=== PATIENT | female | born 1970 | race Caucasian/White ===

== ENCOUNTER → 2017-10-14 | Outpatient (CLI) | payer OTHER ==
--- NOTE | 2017-10-14 12:26 | DIAGNOSTIC IMAGING REPORT ---
PET/CT SKULL-THIGH CLINICAL HISTORY: LYMPHOMA COMPARISON STUDY: No previous studies for comparison. FINDINGS: The patient was injected with 11.6 mCi of F 18 labeled FDG. Findings standard induction phase, PET/CT scanning is performed from the skull base the upper thigh region. Activity within the neck is felt to be physiologic. Within the chest, there is left axillary lymphadenopathy. A 21 mm left axillary lymph node has SUV maximum of 1.7. This is equivalent to background blood pool. There is no pathologic mediastinal or hilar lymphadenopathy. There are no FDG avid hepatic or splenic lesions. The spleen is enlarged measuring 15 cm. There is an 8 cm central mesenteric mass with SUV maximum of 2.8. There are multiple enlarged adjacent mesenteric lymph nodes. There is para-aortic adenopathy including a 3 cm left para-aortic lesion. This has an SUV maximum of 2.4. There is physiologic urinary tract and bowel activity. There is a 3 cm right ovarian cyst/follicle. There are no FDG avid skeletal lesions. IMPRESSION: 1. Left axillary lymphadenopathy which is not significantly FDG avid demonstrating SUV maximum of 1.7. This is equivalent to background blood pool. 2. As a target lymphadenopathy including an 8 cm central mesenteric mass with SUV maximum of 2.8. 3. Pathologic lymphadenopathy including a 3 cm left para-aortic lesion. This has an SUV maximum of 2.4. 4. The spleen is mildly enlarged measuring 15 cm. No focal splenic lesions are visualized Electronically signed by: Irvin Mott M.D. 10/14/2017 12:25 PM Dictated Date/Time: 10/14/2017 12:16 PM
== END | disposition home or self-care (01) ==
LOC: C.PET 08:33
PROVIDERS: ATTEND Nurse Practitioner Family
DX: C82.32 Follicular lymphoma grade IIIa, intrathoracic lymph nodes (principal)

== ENCOUNTER → 2017-12-30 | Outpatient (CLI) | payer OTHER ==
[~2017-12-30] MED LIST: MISCCAP80 PO; NVLGI7030 SC; SENNTAB23 PO
== END | disposition home or self-care (01) ==
LOC: C.LABSPEC 16:37
PROVIDERS: ATTEND Internal Medicine Infectious Disease
DX: B37.0 Candidal stomatitis (principal)

== ENCOUNTER 2018-01-08 12:04 | Emergency (ER) | payer OTHER ==
[~2018-01-08] VITALS: Ht 170.2 cm; Wt 68.0 kg
[2018-01-08 12:06] VITALS: TEMP 36.5; Ht 170.2 cm; Wt 68.0 kg
[2018-01-08 12:25] VITALS: O2SAT 95
[2018-01-08] MEDS ORDERED: SODIUM CHLORIDE 0.9% 1000ML 1,000 ML IV STA ×2 (12:32→14:28)
--- NOTE | 2018-01-08 12:47 | EMERGENCY ROOM VISIT NOTE ---
History Report prepared by Ebony: Howard Diaz Under the Supervision of: Dr. Teodoro Serra M.D. First contact with patient: 12:25 Chief Complaint: SHORTNESS OF BREATH Stated Complaint: DEHYDRATED, STOMACHE PAIN, SOB, CA PT Nursing Triage Summary: pt c/o SOB and came over from [facility] and still has IV in place from facility History of Present Illness The patient is a 47 year old female with lymphoma and a history of diabetes who presents to the Emergency Room with complaints of persistent weakness that started a few weeks ago. The patient states that she came here from infectious disease. She was being seen there for thrush in her mouth. The patient notes that she wanted to come here because she has been tired and weak. She says that she has trouble drinking water due to burning in her mouth, and she is not eating well. She notes a decreased frequency of urination due to not drinking well. The patient adds that she has been intermittently short of breath for a few weeks, in addition, she has had some nasal drainage. The patient notes that the shortness of breath is not correlated with activity. She says that she has been getting "hot and cold". She denies a notable cough. The patient notes that she has finished chemotherapy for her lymphoma in September, and this thrush is probably related to the chemotherapy. Per the nursing staff, the patient had an oxygen saturation of 91% on room air, so she was put on 2 liters here. The patient notes that she is taking a medication for the thrush, but it is still there. She notes no history of a blood clot in her leg or lung, or any chronic lung diseases such as COPD or lymphoma. She adds that she has had a rash underneath her breasts for a while. Source of History: patient, nursing staff Onset: A few weeks ago Position: other (global) Quality: other (weakness) Timing: other (persistent) Associated Symptoms: + chills (and gets hot too), + SOB, + urinary symptoms (decreased frequency), + fatigue, + rash, No cough Note: Associated symptoms: Nasal drainage. Not eating or drinking well due to burning in mouth. Review of Systems See HPI for pertinent positives & negatives. A total of 10 systems reviewed and were otherwise negative. Past Medical & Surgical Medical Problems: (1) Diabetes (2) Lymphoma (3) Stroke Family History No pertinent family history Social History Drug Use: none Marital Status: single Occupation Status: disabled Current/Historical Medications Scheduled Albuterol Hfa (Ventolin Hfa), 2 PUFFS INH Q6H Cefdinir (Omnicef), 300 MG PO Q12H Insulin Aspart 70/30 (Novolog Mix 70/30), Unknown Dose SC AC [Home Iv Med], 1 DOSE IV DAILY Scheduled PRN Sennosides-Docusate Sodium (Stool Softener), 1 CAP PO DAILY PRN for Constipation Allergies Coded Allergies: Cyclobenzaprine (Verified Allergy, Unknown, Unknown, 01/08/18) per [employer] Lidocaine (Verified Allergy, Unknown, Unknown, 01/08/18) per [facility] Morphine (Verified Allergy, Unknown, Unknown, 01/08/18) per [facility] Nystatin (Verified Allergy, Unknown, Bio-Statin - unknown, 01/08/18) per [facility] Physical Exam Vital Signs Date Time Temp Pulse Resp B/P (MAP) Pulse Ox O2 Delivery O2 Flow Rate FiO2 01/08/18 16:20 104 18 152/95 92 01/08/18 16:02 97 22 94 Room Air 01/08/18 14:06 90 18 158/92 95 Nasal Cannula 2.0 01/08/18 12:25 91 01/08/18 12:25 95 Nasal Cannula 2.0 01/08/18 12:20 91 Room Air 01/08/18 12:06 36.5 104 20 92 Room Air Physical Exam GENERAL: Patient is in no acute distress. HEENT: Significant irritation/ulcers to tongue and throat. Mucous membranes moist, no nasal congestion, no scleral icterus. NECK: No stridor, no adenopathy, no meningismus, trachea is midline. LUNGS: Decreased breath sounds with some crackles in both bases. No wheezing. Breath sounds are equal. HEART: Without murmurs gallops or rubs, regular rate and rhythm. ABDOMEN: Soft, nontender, bowel sounds positive, no hernias, no peritonitis. EXTREMITIES: No cyanosis or edema, full range of motion of all the joints without pain or difficulty, no signs for acute trauma. NEUROLOGIC: Oriented x 3, no acute motor or sensory deficits, no focal weakness. SKIN: Erythematous slightly raised patchy rash underneath breasts. No cellulitis. No jaundice, no diaphoresis. Medical Decision & Procedures ER Provider Diagnostic Interpretation: Radiology results as stated below per my review and radiologist interpretation: CHEST ONE VIEW PORTABLE CLINICAL HISTORY: EVALUATE ALTERED MENTAL STATUS/WEAKNESS COMPARISON STUDY: No previous studies for comparison. FINDINGS: The bones soft tissues and hemidiaphragms are normal. The cardiomediastinal silhouette is normal. The lungs are clear. The pulmonary vasculature is normal. There is a central catheter in superior vena cava IMPRESSION: Negative chest. The above report was generated using voice recognition software. It may contain grammatical, syntax or spelling errors. Electronically signed by: Sam Pierre M.D. 01/08/2018 1:18 PM Dictated Date/Time: 01/08/2018 1:18 PM (CHEST FOR PE) ANGIO WITH CT DOSE: 279.65 mGy.cm HISTORY: Chest pain dyspnea TECHNIQUE: Multiaxial CT images of the chest were performed following the intravenous administration of contrast to evaluate the pulmonary arteries. Maximal intensity projection images were also obtained. A dose lowering technique was utilized adhering to the principles of ALARA. COMPARISON STUDY: PET scan 01/08/2018 FINDINGS: Pulmonary vasculature enhances appropriately. There are no significant filling defects. The thoracic aorta is negative for dissection or aneurysm. No significant hilar or mediastinal adenopathy. Slight interstitial prominence throughout the mid and upper lung regions bilaterally which may indicate a mild interstitial pneumonitis. No true focal infiltrates. Upper abdominal adenopathy and thickening of the mesentery are noted which of been described previously. IMPRESSION: 1. No evidence for pulmonary embolus. 2. Subtle interstitial changes in the mid and upper lung regions bilaterally may indicate a mild pneumonitis. The above report was generated using voice recognition software. It may contain grammatical, syntax or spelling errors. Electronically signed by: Sam Pierre M.D. 01/08/2018 2:38 PM Dictated Date/Time: 01/08/2018 2:31 PM Laboratory Results 01/08/18 12:40 Red Blood Count 5.11, Mean Corpuscular Volume 78.7, Mean Corpuscular Hemoglobin 28.0, Mean Corpuscular Hemoglobin Concent 35.6, Mean Platelet Volume 8.5, Neutrophils (%) (Auto) 64.4, Lymphocytes (%) (Auto) 18.8, Monocytes (%) (Auto) 14.1, Eosinophils (%) (Auto) 2.3, Basophils (%) (Auto) 0.2, Neutrophils # (Auto ) 3.67, Lymphocytes # (Auto) 1.07, Monocytes # (Auto) 0.80, Eosinophils # (Auto ) 0.13, Basophils # (Auto) 0.01 01/08/18 12:40 Test 01/08/18 12:40 01/08/18 14:02 White Blood Count 5.69 K/uL (4.8-10.8) Red Blood Count 5.11 M/uL (4.2-5.4) Hemoglobin 14.3 g/dL (12.0-16.0) Hematocrit 40.2 % (37-47) Mean Corpuscular Volume 78.7 fL (80-100) Mean Corpuscular Hemoglobin 28.0 pg (25-34) Mean Corpuscular Hemoglobin Concent 35.6 g/dl (32-36) Platelet Count 131 K/uL (130-400) Mean Platelet Volume 8.5 fL (7.4-10.4) Neutrophils (%) (Auto) 64.4 % Lymphocytes (%) (Auto) 18.8 % Monocytes (%) (Auto) 14.1 % Eosinophils (%) (Auto) 2.3 % Basophils (%) (Auto) 0.2 % Neutrophils # (Auto) 3.67 K/uL (1.4-6.5) Lymphocytes # (Auto) 1.07 K/uL (1.2-3.4) Monocytes # (Auto) 0.80 K/uL (0.11-0.59) Eosinophils # (Auto) 0.13 K/uL (0-0.5) Basophils # (Auto) 0.01 K/uL (0-0.2) RDW Standard Deviation 42.7 fL (36.4-46.3) RDW Coefficient of Variation 15.0 % (11.5-14.5) Immature Granulocyte % (Auto) 0.2 % Immature Granulocyte # (Auto) 0.01 K/uL (0.00-0.02) Anion Gap 6.0 mmol/L (3-11) Est Creatinine Clear Calc Drug Dose 125.6 ml/min Estimated GFR () 131.3 Estimated GFR (Non- 113.3 BUN/Creatinine Ratio 14.7 (10-20) Calcium Level 10.8 mg/dl (8.5-10.1) Magnesium Level 1.8 mg/dl (1.8-2.4) Total Bilirubin 0.7 mg/dl (0.2-1) Aspartate Amino Transf (AST/SGOT) 16 U/L (15-37) Alanine Aminotransferase (ALT/SGPT) 15 U/L (12-78) Alkaline Phosphatase 78 U/L (45-117) Troponin I 0.020 ng/ml (0-0.045) Total Protein 7.3 gm/dl (6.4-8.2) Albumin 3.6 gm/dl (3.4-5.0) Globulin 3.7 gm/dl (2.5-4.0) Albumin/Globulin Ratio 1.0 (0.9-2) Thyroid Stimulating Hormone (TSH) 0.777 uIu/ml (0.300-4.500) Urine Color YELLOW Urine Appearance CLEAR (CLEAR) Urine pH 5.0 (4.5-7.5) Urine Specific [place] 1.020 (1.000-1.030) Urine Protein NEG (NEG) Urine Glucose (UA) TRACE (NEG) Urine Ketones 3+ (NEG) Urine Occult Blood NEG (NEG) Urine Nitrite NEG (NEG) Urine Bilirubin NEG (NEG) Urine Urobilinogen NEG (NEG) Urine Leukocyte Esterase MODERATE (NEG) Urine WBC (Auto) >30 /hpf (0-5) Urine RBC (Auto) 0-4 /hpf (0-4) Urine Hyaline Casts (Auto) 5-10 /lpf (0-5) Urine Epithelial Cells (Auto) 10-20 /lpf (0-5) Urine Bacteria (Auto) NEG (NEG) Laboratory results reviewed by me. Medications Administered Medications (Trade) Dose Ordered Sig/Iram Route Start Time Stop Time Status Last Admin Dose Admin Sodium Chloride 1,000 ml @ 999 mls/hr Q1H1M STAT IV 01/08/18 12:32 01/08/18 13:32 DC 01/08/18 13:00 999 MLS/HR Sodium Chloride 1,000 ml @ 999 mls/hr Q1H1M STAT IV 01/08/18 14:28 01/08/18 15:28 DC 01/08/18 14:32 999 MLS/HR Ceftriaxone Sodium (Rocephin Inj) 1 gm NOW STAT IV 01/08/18 14:46 01/08/18 14:48 DC 01/08/18 15:05 1 GM Albuterol (Ventolin Hfa Inhaler) 2 puffs NOW ONCE INH 01/08/18 15:00 01/08/18 15:01 DC 01/08/18 15:06 2 PUFFS ECG Per My Interpretation Indication: weakness Rate (beats per minute): 91 Rhythm: normal sinus Findings: no acute ischemic change, no ectopy ED Course 1225: The patient was evaluated in room B7. A complete history and physical exam was performed. 1232: NSS 1000 ml @ 999 mls/hr IV. 1341: I reevaluated the patient and told her that we will scan her chest. 1428: NSS 1000 ml @ 999 mls/hr IV. 1446: Rocephin Inj 1 gm IV. 1452: I reevaluated and updated the patient. 1456: I discussed the patient with the nurses who took care of her today at [facility] - the patient is being treated for thrush, and is receiving antifungal injections IV through her port. 1500: Ventolin Hfa Inhaler 2 puffs INH. 1532: Reevaluated the patient. Discussed results and discharge instructions: she verbalized understanding and agreement. The patient is ready for discharge pending oxygen saturation checkup. 1600: I reevaluated the patient and while walking around according to the nurses , she had an oxygen saturation of 93%. I offered the patient hospitalization but she wants to go home and will come if she worsens. Medical Decision Differential diagnosis includes but is not limited to dehydration, electrolyte imbalance, anemia, pneumonia, bronchitis, CHF, PE, cardiac ischemia. There is no leukocytosis or concerning anemia. No significant electrolyte abnormality, kidney failure or hepatitis. The patient appears to be in a euthyroid state. EKG shows a normal sinus rhythm, no acute ischemia. Cardiac enzyme testing 1 is not consistent with acute cardiac injury. Chest x-ray does not show pneumonia or CHF. Urinalysis does suggest infection, urine culture is pending. Chest CT does not show PE, a possible pneumonitis in the upper lobes was noted. The patient received IV saline, albuterol via MDI, she was given IV ceftriaxone. The patient feels better although she is still short of breath with walking around. Her O2 saturation with walking was around 92% as per the nursing staff. I had a long discussion with the patient. She does want to be discharged home. She will return here if worsening. Patient will be treated with Omnicef for the possible UTI, this should also help with coverage for the pneumonitis noted on CT scan. The patient should rest and stay well-hydrated. If things are worsening, she can return for reassessment. She will continue with the IV dosing of antifungal for her thrush. Medication Reconcilliation Current Medication List: was personally reviewed by me Blood Pressure Screening Patient's blood pressure: Elevated blood pressure Blood pressure disposition: Referred to PCP Consults Time Called: [id number] Consulting Physician: Nurses from infectious disease Returned Call: [phone] I discussed the patient with the nurses who took care of her today at [facility] - the patient is being treated for thrush, and is receiving antifungal injections IV through her port. Impression Primary Impression: Dehydration Additional Impressions: UTI (urinary tract infection) Pneumonitis Scribe Attestation The scribe's documentation has been prepared under my direction and personally reviewed by me in its entirety. I confirm that the note above accurately reflects all work, treatment, procedures, and medical decision making performed by me. Departure Information Dispostion Home / Self-Care Prescriptions Albuterol Hfa (VENTOLIN HFA) 200 Puffs/16953 Mcg Aers 2 PUFFS INH Q6H, #1 INHALER Prov: Teodoro Serra M.D. 01/08/18 Cefdinir (OMNICEF) 300 Mg Cap 300 MG PO Q12H for 7 Days, #14 CAP Prov: Teodoro Serra M.D. 01/08/18 Referrals Gregory Gallegos M.D. (PCP) Patient Instructions My [facility] Additional Instructions omnicef 2x per day for 1 week albuterol 2 puffs every 6 hours to help with your breathing continue all other meds as before return for fever or worsening symptoms No blood clot noted by CT scan today Problem Qualifiers
[2018-01-08 12:50] LABS: BASO % 0.2 %; BASO ABS # 0.01 K/uL (0-0.2); EOS % 2.3 %; EOS ABS # 0.13 K/uL (0-0.5); HEMATOCRIT 40.2 % (37-47); HEMOGLOBIN 14.3 g/dL (12.0-16.0); IG# 0.01 K/uL (0.00-0.02); LYMPH % 18.8 %; LYMPH ABS # 1.07 K/uL (1.2-3.4); MEAN CELL VOLUME 78.7 fL (80-100); MEAN CORPUSCULAR HGB CONC 35.6 g/dl (32-36); MEAN PLATELET VOLUME 8.5 fL (7.4-10.4); MONO % 14.1 %; NEUT % 64.4 %; NEUT ABS # 3.67 K/uL (1.4-6.5); PLATELET COUNT 131 K/uL (130-400); RED CELL DISTRIBUTION WIDTH SD 42.7 fL (36.4-46.3); WHITE BLOOD COUNT 5.69 K/uL (4.8-10.8)
[2018-01-08 13:13] LABS: ALBUMIN 3.6 gm/dl (3.4-5.0); CALCIUM 10.8 mg/dl (8.5-10.1); CREATININE 0.55 mg/dl (0.60-1.20); POTASSIUM 3.9 mmol/L (3.5-5.1)
--- NOTE | 2018-01-08 13:20 | DIAGNOSTIC IMAGING REPORT ---
CHEST ONE VIEW PORTABLE CLINICAL HISTORY: EVALUATE ALTERED MENTAL STATUS/WEAKNESS COMPARISON STUDY: No previous studies for comparison. FINDINGS: The bones soft tissues and hemidiaphragms are normal. The cardiomediastinal silhouette is normal. The lungs are clear. The pulmonary vasculature is normal. There is a central catheter in superior vena cava IMPRESSION: Negative chest. The above report was generated using voice recognition software. It may contain grammatical, syntax or spelling errors. Electronically signed by: Sam Pierre M.D. 01/08/2018 1:18 PM Dictated Date/Time: 01/08/2018 1:18 PM
[2018-01-08 13:23] LABS: TOTAL PROTEIN 7.3 gm/dl (6.4-8.2)
[2018-01-08] MEDS ORDERED: [UNRECOGNIZED DRUG - REMARK] IV (13:47)
[2018-01-08] MEDS ORDERED: OPTIRAY 320 IV PRN (14:00)
--- NOTE | 2018-01-08 14:40 | DIAGNOSTIC IMAGING REPORT ---
(CHEST FOR PE) ANGIO WITH CT DOSE: 279.65 mGy.cm HISTORY: Chest pain dyspnea TECHNIQUE: Multiaxial CT images of the chest were performed following the intravenous administration of contrast to evaluate the pulmonary arteries. Maximal intensity projection images were also obtained. A dose lowering technique was utilized adhering to the principles of ALARA. COMPARISON STUDY: PET scan 01/08/2018 FINDINGS: Pulmonary vasculature enhances appropriately. There are no significant filling defects. The thoracic aorta is negative for dissection or aneurysm. No significant hilar or mediastinal adenopathy. Slight interstitial prominence throughout the mid and upper lung regions bilaterally which may indicate a mild interstitial pneumonitis. No true focal infiltrates. Upper abdominal adenopathy and thickening of the mesentery are noted which of been described previously. IMPRESSION: 1. No evidence for pulmonary embolus. 2. Subtle interstitial changes in the mid and upper lung regions bilaterally may indicate a mild pneumonitis. The above report was generated using voice recognition software. It may contain grammatical, syntax or spelling errors. Electronically signed by: Sam Pierre M.D. 01/08/2018 2:38 PM Dictated Date/Time: 01/08/2018 2:31 PM
[2018-01-08] MEDS ORDERED: CEFTRIAXONE SOD INJ 1 GM ADDVIAL IV STA (14:46)
[2018-01-08] MEDS ORDERED: ALBUTEROL HFA 8 GM INHALER INH ONE (15:00)
[2018-01-08] MEDS ORDERED: VNTHFA/IN INH (15:02)
[2018-01-08] MEDS ORDERED: CEFD300C2 PO (15:02)
[2018-01-08 16:20] VITALS: BP 152/95; PULSE 104; O2SAT 92
== END 2018-01-08 16:25 | disposition home or self-care (01) ==
LOC: C.EDB 12:05
DX: E86.0 Dehydration (principal); N39.0 Urinary tract infection, site not specified; J18.9 Pneumonia, unspecified organism; C85.90 Non-Hodgkin lymphoma, unspecified, unspecified site; E11.9 Type 2 diabetes mellitus without complications; Z86.73 Personal history of transient ischemic attack (TIA), and cerebral infarction without residual deficits; Z79.4 Long term (current) use of insulin; Z79.899 Other long term (current) drug therapy; Z88.5 Allergy status to narcotic agent; Z88.8 Allergy status to other drugs, medicaments and biological substances

== ENCOUNTER → 2018-06-17 | Outpatient (CLI) | payer OTHER ==
[~2018-06-17] MED LIST changes: +GUAI1SOL5 PO; +IPRA-64 INH; +LORA10CA2 PO; -MISCCAP80 PO; +PRED10TA PO; +VNTHFA/IN INH
[2018-06-17 09:03] LABS: BASO % 0.3 %; BASO ABS # 0.02 K/uL (0-0.2); EOS % 6.3 %; EOS ABS # 0.38 K/uL (0-0.5); HEMATOCRIT 40.7 % (37-47); HEMOGLOBIN 13.9 g/dL (12.0-16.0); LYMPH % 28.5 %; LYMPH ABS # 1.73 K/uL (1.2-3.4); MEAN CELL VOLUME 82.7 fL (80-100); MEAN CORPUSCULAR HEMOGLOBIN 28.3 pg (25-34); MEAN CORPUSCULAR HGB CONC 34.2 g/dl (32-36); MEAN PLATELET VOLUME 9.1 fL (7.4-10.4); MONO % 11.5 %; NEUT % 53.4 %; NEUT ABS # 3.24 K/uL (1.4-6.5); PLATELET COUNT 123 K/uL (130-400); RED CELL DISTRIBUTION WIDTH CV 13.8 % (11.5-14.5); RED CELL DISTRIBUTION WIDTH SD 41.6 fL (36.4-46.3); WHITE BLOOD COUNT 6.07 K/uL (4.8-10.8)
[2018-06-17 09:45] LABS: ALBUMIN 3.4 gm/dl (3.4-5.0); ALKALINE PHOSPHATASE 84 U/L (45-117); ALT/SGPT 16 U/L (12-78); AST/SGOT 17 U/L (15-37); BLOOD UREA NITROGEN 10 mg/dl (7-18); CALCIUM 10.5 mg/dl (8.5-10.1); CARBON DIOXIDE 31 mmol/L (21-32); CREATININE 0.54 mg/dl (0.60-1.20); GLUCOSE 236 mg/dl (70-99); SODIUM 139 mmol/L (136-145)
== END | disposition home or self-care (01) ==
LOC: C.LABSPEC 08:54
PROVIDERS: ATTEND Internal Medicine Hematology & Oncology
DX: C82.32 Follicular lymphoma grade IIIa, intrathoracic lymph nodes (principal)

== ENCOUNTER 2019-02-08 16:14 | Inpatient (IN) ==
[2019-02-08] MEDS ORDERED: ALBUT/IPRATROP 3MG/0.5MG NEB 3 ML VIAL NEB STA (16:56)
[2019-02-08] MEDS ORDERED: SODIUM CHLORIDE 0.9% 1000ML 1,000 ML IV SCH ×2 (17:00→19:00)
--- NOTE | 2019-02-08 17:01 | Emergency Department Note ---
ED Visit Note I took a history and examined the patient. I coordinated the management of the patient with Dr. Guzman . : Chronic respiratory failure Qualifiers: Respiratory failure complication: hypoxia and hypercapnia Qualified Code(s): J96.11 - Chronic respiratory failure with hypoxia
[2019-02-08 17:39] LABS: Basophils # (auto) 0.02 K/uL (0-0.2); Basophils % (auto) 0.3 %; Eosinophils % (auto) 4.1 %; Hemoglobin 15.2 g/dL (12.0-16.0); Immature Granulocytes # (auto) 0.01 K/uL (0.00-0.02); Immature Granulocytes % (auto) 0.1 %; Lymphocytes % (auto) 26.2 %; Mean Corpuscular Hgb Conc 34.5 g/dL (32-36); Mean Corpuscular Volume 83.2 fL (80-100); Mean Platelet Volume 9.7 fL (7.4-10.4); Monocytes # (auto) 0.79 K/uL (0.11-0.59); Monocytes % (auto) 10.9 %; Neutrophils # (auto) 4.24 K/uL (1.4-6.5); Neutrophils % (auto) 58.4 %; Platelet Count 124 K/uL (130-400); RDW Coefficient of Variation 13.7 % (11.5-14.5); RDW Standard Deviation 41.1 fL (36.4-46.3); Red Blood Count 5.29 M/uL (4.2-5.4); White Blood Count 7.26 K/uL (4.8-10.8)
[2019-02-08 17:59] LABS: Alanine Aminotransferase 16 U/L (12-78); Albumin Level 3.6 gm/dl (3.4-5.0); Aspartate Aminotransferase 14 U/L (15-37); BUN Creatinine Ratio 20.5 (10-20); Blood Urea Nitrogen 10 mg/dl (7-18); Calcium 11.3 mg/dl (8.5-10.1); Carbon Dioxide 33 mmol/L (21-32); Chloride 103 mmol/L (98-107); Creatinine Clr Calc Pharmacy 128.5 ml/min; Est GFR (African American) 136.3; Est GFR (Non-African American) 117.6; Glucose 149 mg/dl (70-99); Sodium 140 mmol/L (136-145)
[2019-02-08 18:03] LABS: Albumin Globulin Ratio 0.9 (0.9-2); Alkaline Phosphatase 94 U/L (45-117); Bilirubin,Total 0.6 mg/dl (0.2-1); Globulin 3.9 gm/dl (2.5-4.0); Total Protein 7.5 gm/dl (6.4-8.2); Troponin I < 0.015 ng/ml (0-0.045)
--- NOTE | 2019-02-08 18:18 | XRay Report ---
XR chest 1V portable CLINICAL HISTORY: 49 years-old Female presenting with SOB. TECHNIQUE: Portable upright AP view of the chest was obtained. COMPARISON: CT chest from 12/21/2018 and chest x-ray from 04/15/2018. FINDINGS: A right internal jugular Mediport terminates in the lower SVC and has been accessed. Cardiomediastina l silhouette normal. Lungs are mildly hyperinflated. No focal opacity. No large effusion or pneumotho rax. Degenerative changes of the thoracic spine. Upper abdomen normal. IMPRESSION: 1. No acute cardiopulmonary disease. Electronically signed by: Stef Lackey M.D. 02/08/2019 6:17 PM
[2019-02-08 18:24] LABS: HCO3 VBG 38 mmol/L; PCO2 VBG 75 mmHg (38-50); PO2 VBG 27 mmHg; pH VBG 7.32 (7.36-7.41)
[2019-02-08] MEDS ORDERED: methylPREDNISolone 125 MG/2 ML VIAL IV STA (18:24)
[2019-02-08 18:35] LABS: Oxygen Saturation VBG < 60.0 %
[2019-02-08 18:41] LABS: NT Pro B Type Natriuretic Pept 33 pg/ml (0-450)
[2019-02-08] MEDS ORDERED: OPTIRAY 320 125ml IV PRN (18:42)
--- NOTE | 2019-02-08 18:48 | CT Scan Report ---
CT angio chest PE protocol CLINICAL HISTORY: 49 years-old Female presenting with atypical chest pain, history of lymphoma. TECHNIQUE: Multidetector CT angiography of the chest was performed after administration of intravenou s contrast. 3-D volumetric and/or maximum intensity projection (MIP) images were subsequently reconst ructed for review. IV contrast: 119 mL of Optiray 320. One or more dose lowering techniques were used consistent with the principles of ALARA (as low as reasonably achievable), including automatic expos ure control, mA or kV adjustment to individual patient size, and/or use of iterative reconstruction. COMPARISON: 12/21/2018. CT DOSE (mGy.cm): The estimated cumulative dose is 252.90 mGy.cm. FINDINGS: Manager Eligibility topogram: Right internal jugular Mediport terminates in SVC. Pulmonary vasculature: The study is suboptimal for the assessment of the pulmonary vascular tree secondary to respiratory mo tion artifact. Allowing for limited image quality, no central filling defect to suggest pulmonary emb olus. Main pulmonary artery is not enlarged. No flattening of the interventricular septum. No intraca rdiac filling defect. Reflux of contrast into the IVC and hepatic veins. This likely indicates elevat ed right heart pressure. Remaining chest: Soft tissues: Normal thyroid and thoracic inlet. Previously noted left axillary lymphadenopathy with an index node measuring 13 mm in short axis, stable to slightly decreased in size from prior. Normal aorta. Normal heart size. Coronary artery calcification. No pericardial or pleural effusion. Limited evaluation of the upper abdomen due to the phase of contrast. Lungs and airways: No pneumothorax. Layering debris in the lower trachea. Pulmonary arteries are not significantly enlarged relative to adjacent bronchi. Trace centrilobular septal thickening. Prominent mosaic attenuation suggesting small airways disease. Respiratory motion artifact grades evaluation o f lung parenchyma. Allowing for this, no focal nodule or infiltrate. Few punctate fissural nodules in the left lower lobe, which have benign morphology. Musculoskeletal: Normal osseous structures. IMPRESSION: 1. Allowing for suboptimal image quality, no evidence of pulmonary embolus. 2. Mosaic attenuation suggest small airways disease. Evaluation of the lung parenchyma degraded by r espiratory motion artifact. 3. Stable to slight interval decrease in left axillary lymphadenopathy. 4. Reflux of contrast into the hepatic veins may suggest elevated right heart pressure. Electronically signed by: Stef Lackey M.D. 02/08/2019 6:47 PM
[2019-02-08] MEDS ORDERED: AZITHROMYCIN 250 MG TAB PO ONE (18:56)
[2019-02-08] MEDS ORDERED: ALBUT/IPRATROP 3MG/0.5MG NEB 3 ML VIAL NEB ONE (18:58)
--- NOTE | 2019-02-08 19:24 | Emergency Department Note ---
Entered by Nehal Grande acting as a scribe for History of Present Illness General Chief complaint: Shortness of Breath/Dyspnea Stated complaint: SOB, DIZZINESS Time Seen by Provider: 02/08/19 16:30 Source: patient Limitations: no limitations History of Present Illness Provider complaint: shortness of breath Onset (ago): day(s) 3 Location: chest Maximum Pain Intensity: 10 Exacerbated By: + movement Associated symptoms: + denies other symptoms (palpitations, runny nose, diarrhea), + cough (dry) and + other (+chest tightness, +dizziness); no fever/chills The patient is a 49 year old female who presents to the Emergency Room with complaints of shortness of breath that began 3 days prior to arrival. The patient states that exertion exacerbates her shortness of breath. The patient states that she has a dry cough, chest tightness, and dizziness. The patient denies any fevers, palpitations, diarrhea, or runny nose. The patient states that she usually wears 2L of oxygen at home. The patient states that she uses a nebulizer and 1 inhalers but states that she is unsure what they are for. The patient states that she has been treated with antibiotics over the past 2 months for pneumonia but states that she never received a chest CT. The patient states that she has a history of lymphoma and states that her last chemo treatment was in September. The patient states that she is not a current smoker but states that she smoked 1 pack a day for 15-20 years. Home Medications Home Medications Medication Instructions Recorded Confirmed Type Raw Honey 1 tsp PO DAILY 02/03/19 02/08/19 History Silver Shield 1 dose PO BID 02/03/19 02/08/19 History albuterol sulfate 0.63 mg INHALATION QID PRN 02/03/19 02/08/19 History albuterol sulfate 1 inh INHALATION QID PRN 02/03/19 02/08/19 History insulin aspart U-100 [Novolog 1 dose SUBCUT TID 02/03/19 02/08/19 History U-100 Insulin aspart] insulin glargine [Basaglar KwikPen 3 unit SUBCUT HS 02/03/19 02/08/19 History U-100 Insulin] ipratropium-albuterol [Combivent 1 puff INHALATION QID PRN 02/03/19 02/08/19 History Respimat] lactobacillus combination no.4 3 cap PO DAILY 02/03/19 02/08/19 History [Probiotic] Allergies Allergy/AdvReac Type Severity Reaction Status Date / Time cyclobenzaprine Allergy Intermediate HALLUCINATI Verified 02/08/19 17:00 ON lidocaine Allergy Intermediate ITCHING Verified 02/08/19 17:00 AND BURNING ON CONTACT nystatin Allergy Intermediate ITCHING Verified 02/08/19 17:00 AND BURNING cefaclor Allergy Mild SICK TO Verified 02/08/19 17:00 STOMACH morphine Allergy Mild VOMITTING Verified 02/08/19 17:00 Past Med/Surg History Medical History Anxiety HX OF Cardiac murmur Diabetes mellitus type 1 Dry eye Hyperlipidemia HX OF Hypertension Low oxygen saturation WEARS O2 AT 2L HS (CAUSED BY CHEMO [place]) Lymphoma On home oxygen therapy 2L AT HS Osteoarthritis Stroke AT AGE 43 "STRESS RELATED" Surgical History History of bilateral tubal ligation History of section X 3 History of laparoscopy History of tooth extraction History of vascular access device PORT INSERTION (FOR CHEMO) Ovarian cyst REMOVED Family History Mother Family history of diabetes mellitus Social History Preferred Language: Mohawk Communication Ability: Effective Regulatory Administrator Required: No Beliefs That Will Affect Care: None Current Living Situation: Alone Other Information That Helps Us Care for You: No Feels Safe at Home: Yes Safety Concerns: Feels Safe At This Time Smoking Status: Former smoker Hx Alcohol Use: No Hx Substance Use: No Review of Systems See HPI for pertinent positives & negatives. and A total of 10 systems reviewed and were otherwise negative See HPI for pertinent positives & negatives. A total of 10 systems reviewed and were otherwise negative. Physical Exam Vital Signs Vital Signs - 24 hr 02/08/19 16:25 02/08/19 16:55 02/08/19 17:00 Temperature 36.6 C Temperature Source Oral Sepsis Recent Fever Within 48 Hours No Sepsis New/Unexplained Change in Mental Status No Sepsis Action Taken by Nursing No Action Required Pulse Rate 101 H 92 H 98 H Pulse Rate [Finger] Pulse Rate from SpO2 Sensor 92 H 97 H Respiratory Rate 22 28 H 22 Respiratory Effort / Characteristics Spontaneous Labored Respiratory Depth Normal Respiratory Pattern Regular Blood Pressure 180/102 H Blood Pressure [Left Arm] Blood Pressure Mean 128 Blood Pressure Mean [Left Arm] Blood Pressure Position Sitting Blood Pressure Position [Left Arm] Pulse Oximetry 79 L 95 95 Pulse Oximetry [Right Index Finger] Oxygen Delivery Method Room Air Oxygen Delivery Method [Right Index Finger] Oxygen Flow Rate Oxygen Flow Rate [Right Index Finger] Fraction of Inspired Oxygen Fraction of Inspired Oxygen [Right Index Finger] 02/08/19 17:10 02/08/19 17:20 02/08/19 17:30 Temperature Temperature Source Sepsis Recent Fever Within 48 Hours Sepsis New/Unexplained Change in Mental Status Sepsis Action Taken by Nursing Pulse Rate 93 H 96 H 113 H Pulse Rate [Finger] Pulse Rate from SpO2 Sensor 92 H 95 H 112 H Respiratory Rate 23 20 18 Respiratory Effort / Characteristics Respiratory Depth Respiratory Pattern Blood Pressure Blood Pressure [Left Arm] Blood Pressure Mean Blood Pressure Mean [Left Arm] Blood Pressure Position Blood Pressure Position [Left Arm] Pulse Oximetry 96 97 91 Pulse Oximetry [Right Index Finger] Oxygen Delivery Method Oxygen Delivery Method [Right Index Finger] Oxygen Flow Rate Oxygen Flow Rate [Right Index Finger] Fraction of Inspired Oxygen Fraction of Inspired Oxygen [Right Index Finger] 02/08/19 17:40 02/08/19 17:42 02/08/19 17:44 Temperature Temperature Source Sepsis Recent Fever Within 48 Hours Sepsis New/Unexplained Change in Mental Status Sepsis Action Taken by Nursing Pulse Rate 106 H Pulse Rate [Finger] Pulse Rate from SpO2 Sensor 106 H 103 H Respiratory Rate 17 Respiratory Effort / Characteristics Respiratory Depth Respiratory Pattern Blood Pressure 224/125 H Blood Pressure [Left Arm] Blood Pressure Mean 158 Blood Pressure Mean [Left Arm] Blood Pressure Position Blood Pressure Position [Left Arm] Pulse Oximetry 91 91 96 Pulse Oximetry [Right Index Finger] Oxygen Delivery Method Nasal Cannula Oxygen Delivery Method [Right Index Finger] Oxygen Flow Rate 5 Oxygen Flow Rate [Right Index Finger] Fraction of Inspired Oxygen Fraction of Inspired Oxygen [Right Index Finger] 02/08/19 17:45 02/08/19 17:50 02/08/19 18:00 Temperature Temperature Source Sepsis Recent Fever Within 48 Hours Sepsis New/Unexplained Change in Mental Status Sepsis Action Taken by Nursing Pulse Rate 94 H 94 H Pulse Rate [Finger] Pulse Rate from SpO2 Sensor 102 H 95 H 93 H Respiratory Rate 5 L 28 H Respiratory Effort / Characteristics Respiratory Depth Respiratory Pattern Blood Pressure 216/114 H Blood Pressure [Left Arm] Blood Pressure Mean 148 Blood Pressure Mean [Left Arm] Blood Pressure Position Blood Pressure Position [Left Arm] Pulse Oximetry 97 98 98 Pulse Oximetry [Right Index Finger] Oxygen Delivery Method Oxygen Delivery Method [Right Index Finger] Oxygen Flow Rate Oxygen Flow Rate [Right Index Finger] Fraction of Inspired Oxygen Fraction of Inspired Oxygen [Right Index Finger] 02/08/19 18:10 02/08/19 18:49 02/08/19 18:50 Temperature Temperature Source Sepsis Recent Fever Within 48 Hours Sepsis New/Unexplained Change in Mental Status Sepsis Action Taken by Nursing Pulse Rate 101 H Pulse Rate [Finger] Pulse Rate from SpO2 Sensor 101 H 98 H 99 H Respiratory Rate 19 Respiratory Effort / Characteristics Respiratory Depth Respiratory Pattern Blood Pressure Blood Pressure [Left Arm] Blood Pressure Mean Blood Pressure Mean [Left Arm] Blood Pressure Position Blood Pressure Position [Left Arm] Pulse Oximetry 94 88 L 92 Pulse Oximetry [Right Index Finger] Oxygen Delivery Method Oxygen Delivery Method [Right Index Finger] Oxygen Flow Rate Oxygen Flow Rate [Right Index Finger] Fraction of Inspired Oxygen Fraction of Inspired Oxygen [Right Index Finger] 02/08/19 18:58 02/08/19 19:00 02/08/19 19:05 Temperature Temperature Source Sepsis Recent Fever Within 48 Hours Sepsis New/Unexplained Change in Mental Status Sepsis Action Taken by Nursing Pulse Rate 93 H 89 Pulse Rate [Finger] 89 Pulse Rate from SpO2 Sensor 90 Respiratory Rate 30 H 19 26 H Respiratory Effort / Characteristics Non-Labored Spontaneous Non-Labored Spontaneous Respiratory Depth Normal Respiratory Pattern Tachypnea Blood Pressure Blood Pressure [Left Arm] Blood Pressure Mean Blood Pressure Mean [Left Arm] Blood Pressure Position Blood Pressure Position [Left Arm] Pulse Oximetry 96 98 95 Pulse Oximetry [Right Index Finger] Oxygen Delivery Method BiPAP Oxygen Delivery Method [Right Index Finger] Oxygen Flow Rate Oxygen Flow Rate [Right Index Finger] Fraction of Inspired Oxygen 40 30 30 Fraction of Inspired Oxygen [Right Index Finger] 02/08/19 19:10 02/08/19 19:20 02/08/19 19:30 Temperature Temperature Source Sepsis Recent Fever Within 48 Hours Sepsis New/Unexplained Change in Mental Status Sepsis Action Taken by Nursing Pulse Rate 93 H 89 107 H Pulse Rate [Finger] Pulse Rate from SpO2 Sensor 92 H 90 107 H Respiratory Rate 33 H 28 H 46 H Respiratory Effort / Characteristics Respiratory Depth Respiratory Pattern Blood Pressure Blood Pressure [Left Arm] Blood Pressure Mean Blood Pressure Mean [Left Arm] Blood Pressure Position Blood Pressure Position [Left Arm] Pulse Oximetry 98 97 97 Pulse Oximetry [Right Index Finger] Oxygen Delivery Method Oxygen Delivery Method [Right Index Finger] Oxygen Flow Rate Oxygen Flow Rate [Right Index Finger] Fraction of Inspired Oxygen Fraction of Inspired Oxygen [Right Index Finger] 02/08/19 19:40 02/08/19 19:50 02/08/19 20:00 Temperature Temperature Source Sepsis Recent Fever Within 48 Hours Sepsis New/Unexplained Change in Mental Status Sepsis Action Taken by Nursing Pulse Rate 109 H 96 H 96 H Pulse Rate [Finger] Pulse Rate from SpO2 Sensor 108 H 97 H 97 H Respiratory Rate 20 31 H 29 H Respiratory Effort / Characteristics Respiratory Depth Respiratory Pattern Blood Pressure Blood Pressure [Left Arm] Blood Pressure Mean Blood Pressure Mean [Left Arm] Blood Pressure Position Blood Pressure Position [Left Arm] Pulse Oximetry 77 L 97 97 Pulse Oximetry [Right Index Finger] Oxygen Delivery Method Oxygen Delivery Method [Right Index Finger] Oxygen Flow Rate Oxygen Flow Rate [Right Index Finger] Fraction of Inspired Oxygen Fraction of Inspired Oxygen [Right Index Finger] 02/08/19 20:10 02/08/19 20:20 02/08/19 20:30 Temperature Temperature Source Sepsis Recent Fever Within 48 Hours Sepsis New/Unexplained Change in Mental Status Sepsis Action Taken by Nursing Pulse Rate 104 H 110 H 110 H Pulse Rate [Finger] Pulse Rate from SpO2 Sensor 104 H 109 H 111 H Respiratory Rate 43 H 22 25 H Respiratory Effort / Characteristics Respiratory Depth Respiratory Pattern Blood Pressure Blood Pressure [Left Arm] Blood Pressure Mean Blood Pressure Mean [Left Arm] Blood Pressure Position Blood Pressure Position [Left Arm] Pulse Oximetry 97 97 98 Pulse Oximetry [Right Index Finger] Oxygen Delivery Method Oxygen Delivery Method [Right Index Finger] Oxygen Flow Rate Oxygen Flow Rate [Right Index Finger] Fraction of Inspired Oxygen Fraction of Inspired Oxygen [Right Index Finger] 02/08/19 20:40 02/08/19 20:49 02/08/19 20:50 Temperature Temperature Source Sepsis Recent Fever Within 48 Hours Sepsis New/Unexplained Change in Mental Status Sepsis Action Taken by Nursing Pulse Rate 107 H 106 H 107 H Pulse Rate [Finger] Pulse Rate from SpO2 Sensor 106 H 107 H 107 H Respiratory Rate 32 H 29 H 33 H Respiratory Effort / Characteristics Respiratory Depth Respiratory Pattern Blood Pressure 130/85 Blood Pressure [Left Arm] Blood Pressure Mean 100 Blood Pressure Mean [Left Arm] Blood Pressure Position Blood Pressure Position [Left Arm] Pulse Oximetry 98 99 98 Pulse Oximetry [Right Index Finger] Oxygen Delivery Method Oxygen Delivery Method [Right Index Finger] Oxygen Flow Rate Oxygen Flow Rate [Right Index Finger] Fraction of Inspired Oxygen Fraction of Inspired Oxygen [Right Index Finger] 02/08/19 21:00 02/08/19 21:01 02/08/19 21:10 Temperature Temperature Source Sepsis Recent Fever Within 48 Hours Sepsis New/Unexplained Change in Mental Status Sepsis Action Taken by Nursing Pulse Rate 109 H 109 H 112 H Pulse Rate [Finger] Pulse Rate from SpO2 Sensor 109 H 109 H 112 H Respiratory Rate 25 H 29 H 22 Respiratory Effort / Characteristics Respiratory Depth Respiratory Pattern Blood Pressure 120/81 Blood Pressure [Left Arm] Blood Pressure Mean 94 Blood Pressure Mean [Left Arm] Blood Pressure Position Blood Pressure Position [Left Arm] Pulse Oximetry 94 94 91 Pulse Oximetry [Right Index Finger] Oxygen Delivery Method Oxygen Delivery Method [Right Index Finger] Oxygen Flow Rate Oxygen Flow Rate [Right Index Finger] Fraction of Inspired Oxygen Fraction of Inspired Oxygen [Right Index Finger] 02/08/19 21:40 02/08/19 21:48 02/08/19 22:11 Temperature 36.6 C Temperature Source Oral Sepsis Recent Fever Within 48 Hours Sepsis New/Unexplained Change in Mental Status Sepsis Action Taken by Nursing Pulse Rate Pulse Rate [Finger] 110 H 102 H Pulse Rate from SpO2 Sensor Respiratory Rate 24 24 Respiratory Effort / Characteristics Short of Breath Respiratory Depth Shallow Respiratory Pattern Tachypnea Blood Pressure Blood Pressure [Left Arm] 124/83 Blood Pressure Mean Blood Pressure Mean [Left Arm] 96 Blood Pressure Position Blood Pressure Position [Left Arm] Pulse Oximetry 86 L Pulse Oximetry [Right Index Finger] 85 L 92 Oxygen Delivery Method BiPAP Oxygen Delivery Method [Right Index Finger] BiPAP High Flow Nasal Cannula Oxygen Flow Rate 20 Oxygen Flow Rate [Right Index Finger] 20 Fraction of Inspired Oxygen Fraction of Inspired Oxygen [Right Index Finger] 30 02/08/19 23:48 Temperature 36.6 C Temperature Source Oral Sepsis Recent Fever Within 48 Hours Sepsis New/Unexplained Change in Mental Status Sepsis Action Taken by Nursing Pulse Rate Pulse Rate [Finger] Pulse Rate from SpO2 Sensor Respiratory Rate 24 Respiratory Effort / Characteristics Respiratory Depth Normal Respiratory Pattern Blood Pressure Blood Pressure [Left Arm] 142/83 H Blood Pressure Mean Blood Pressure Mean [Left Arm] 102 Blood Pressure Position Blood Pressure Position [Left Arm] Lying Pulse Oximetry 97 Pulse Oximetry [Right Index Finger] Oxygen Delivery Method BiPAP Oxygen Delivery Method [Right Index Finger] Oxygen Flow Rate Oxygen Flow Rate [Right Index Finger] Fraction of Inspired Oxygen Fraction of Inspired Oxygen [Right Index Finger] GENERAL: Awake, alert, ill-appearing, in mild respiratory distress HENT: Normocephalic, atraumatic. Oropharynx with dry mucous membranes and otherwise unremarkable. EYES: Normal conjunctiva. Sclera non-icteric. NECK: Supple. No nuchal rigidity. FROM. No JVD. RESPIRATORY: Mild respiratory distress with labored breathing/tripoding. Diminished breath sounds throughout with scant wheezing. CARDIAC: Tachycardic rate, normal rhythm. Extremities warm and well perfused. Pulses equal. ABDOMEN: Soft, non-distended. No tenderness to palpation. No rebound or guarding. No masses. RECTAL: Deferred. MUSCULOSKELETAL: Chest examination reveals no tenderness. The back is symmetrical on inspection without obvious abnormality. There is no CVA tenderness to palpation. No joint edema. LOWER EXTREMITIES: Calves are equal size bilaterally and non-tender. No edema. No discoloration. NEURO: Normal sensorium. No sensory or motor deficits noted. SKIN: No rash or jaundice noted. Course 1719:The patient was evaluated in room C3, and a complete history and physical examination were performed. 1819: I checked on and updated the patient on her results. 1944: I discussed the patient's case with Dr. Livingston [facility] Hospitalist who will evaluate the patient for further hospitalization. Consultations Consultation #1: Dr. Livingston [facility] Hospitalist Time: 19:45 Administered Medications Acetaminophen (Tylenol) 650 mg PO Q4H PRN PRN Reason: Pain or Fever Stop: 03/10/19 21:47 Last Admin: 02/08/19 22:25 Dose: 650 mg Documented by: [id number] Methylprednisolone 30 mg/ (Syringe) 0.48 mls @ 1.5 mls/min IV Q12H TOVA Stop: 03/10/19 21:59 Last Admin: 02/08/19 23:26 Dose: 1.5 mls/min Documented by: [id number] Insulin Aspart (Novolog Flexpen) 0 units SC ACHS TOVA Stop: 03/10/19 22:14 Last Admin: 02/08/19 23:26 Dose: 3 units Documented by: [id number] Cosigned by: [id number] Insulin Glargine (Lantus Solostar Pen) 3 units SQ HS TOVA Stop: 03/10/19 22:14 Last Admin: 02/08/19 23:26 Dose: 3 units Documented by: [id number] Cosigned by: [id number] Discontinued Medications Albuterol (Duoneb) 3 ml NEB NOW STA Stop: 02/08/19 16:57 Last Admin: 02/08/19 17:45 Dose: 3 ml Documented by: [id number] Albuterol (Duoneb) 12 ml NEB ONE ONE Stop: 02/08/19 18:59 Last Admin: 02/08/19 19:04 Dose: 12 ml Documented by: [id number] Azithromycin (Zithromax) 500 mg PO NOW ONE Stop: 02/08/19 18:57 Last Admin: 02/08/19 19:26 Dose: 500 mg Documented by: [id number] Hydralazine HCl (Hydralazine Hcl) 10 mg IV NOW STA Stop: 02/08/19 20:52 Last Admin: 02/08/19 22:23 Dose: Not Given Documented by: [id number] Sodium Chloride (Nss 1000ml) 1,000 mls @ 999 mls/hr IV .Q1H1M TOVA Stop: 02/08/19 18:00 Last Infusion: 02/08/19 19:42 Dose: 0 mls/hr Documented by: [id number] Admin: 02/08/19 18:20 Dose: 999 mls/hr Documented by: [id number] Sodium Chloride (Nss 1000ml) 1,000 mls @ 125 mls/hr IV .Q8H TOVA Stop: 03/10/19 18:59 Last Admin: 02/08/19 22:23 Dose: Not Given Documented by: [id number] Ioversol (Optiray 320 125ml) 112 ml IV ONCE PRN PRN Reason: Interaction Checking Stop: 02/12/19 18:41 Last Admin: 02/08/19 18:42 Dose: 112 ml Documented by: [id number] Methylprednisolone (Solumedrol) 125 mg IV NOW STA Stop: 02/08/19 18:25 Last Admin: 02/08/19 19:25 Dose: 125 mg Documented by: [id number] Medical Decision Making Differential Diagnosis Differential diagnoses includes but is not limited to pneumonia, bronchitis, COPD/Asthma exacerbation, pneumothorax, pulmonary embolism, congestive heart failure, acute coronary syndrome. Medical Records Attestation: I reviewed the patient's medical records. Home Medications Current Medication List: was personally reviewed by me Laboratory Data Attestation: I reviewed the patient's lab results. Result diagrams: 02/08/19 17:24 02/08/19 17:24 Lab Results 02/08/19 02/08/19 02/08/19 Range/Units 17:24 17:24 17:24 WBC 7.26 (4.8-10.8) K/uL RBC 5.29 (4.2-5.4) M/uL Hgb 15.2 (12.0-16.0) g/dL Hct 44.0 (37-47) % MCV 83.2 (80-100) fL MCH 28.7 (25-34) pg MCHC 34.5 (32-36) g/dL RDW Std Deviation 41.1 (36.4-46.3) fL RDW Coeff of Leopoldo 13.7 (11.5-14.5) % Plt Count 124 L (130-400) K/uL MPV 9.7 (7.4-10.4) fL Immature Gran % (Auto) 0.1 % Neut % (Auto) 58.4 % Lymph % (Auto) 26.2 % [place] % (Auto) 10.9 % Eos % (Auto) 4.1 % Baso % (Auto) 0.3 % Immature Gran # (Auto) 0.01 (0.00-0.02) K/uL Neut # (Auto) 4.24 (1.4-6.5) K/uL Lymph # (Auto) 1.90 (1.2-3.4) K/uL [place] # (Auto) 0.79 H (0.11-0.59) K/uL Eos # (Auto) 0.30 (0-0.5) K/uL Baso # (Auto) 0.02 (0-0.2) K/uL VBG pH (7.36-7.41) VBG pCO2 (38-50) mmHg VBG pO2 mmHg VBG HCO3 mmol/L VBG O2 Saturation % VBG Base Excess mEq/L Barometric Pressure mm/Hg Sodium 140 (136-145) mmol/L Potassium 4.0 (3.5-5.1) mmol/L Chloride 103 (98-107) mmol/L Carbon Dioxide 33 H (21-32) mmol/L Anion Gap 4.0 (3-11) BUN 10 (7-18) mg/dl Creatinine 0.47 L (0.6-1.2) mg/dl Est Cr Clr Drug Dosing 128.5 ml/min Est GFR ( Amer) 136.3 Est GFR (Non-Af Amer) 117.6 BUN/Creatinine Ratio 20.5 H (10-20) Glucose 149 H (70-99) mg/dl POC Glucose (70-99) Lactate 0.8 (0.4-2.0) mmol/L Calcium 11.3 H (8.5-10.1) mg/dl Phosphorus (2.5-4.9) mg/dl Magnesium (1.8-2.4) mg/dl Total Bilirubin 0.6 (0.2-1) mg/dl AST 14 L (15-37) U/L ALT 16 (12-78) U/L Alkaline Phosphatase 94 (45-117) U/L Troponin I < 0.015 (0-0.045) ng/ml NT-Pro-B Natriuret Pep 33 (0-450) pg/ml Total Protein 7.5 (6.4-8.2) gm/dl Albumin 3.6 (3.4-5.0) gm/dl Globulin 3.9 (2.5-4.0) gm/dl Albumin/Globulin Ratio 0.9 (0.9-2) 02/08/19 02/08/19 02/08/19 Range/Units 17:24 18:05 22:22 WBC (4.8-10.8) K/uL RBC (4.2-5.4) M/uL Hgb (12.0-16.0) g/dL Hct (37-47) % MCV (80-100) fL MCH (25-34) pg MCHC (32-36) g/dL RDW Std Deviation (36.4-46.3) fL RDW Coeff of Leopoldo (11.5-14.5) % Plt Count (130-400) K/uL MPV (7.4-10.4) fL Immature Gran % (Auto) % Neut % (Auto) % Lymph % (Auto) % [place] % (Auto) % Eos % (Auto) % Baso % (Auto) % Immature Gran # (Auto) (0.00-0.02) K/uL Neut # (Auto) (1.4-6.5) K/uL Lymph # (Auto) (1.2-3.4) K/uL [place] # (Auto) (0.11-0.59) K/uL Eos # (Auto) (0-0.5) K/uL Baso # (Auto) (0-0.2) K/uL VBG pH 7.32 L (7.36-7.41) VBG pCO2 75 H (38-50) mmHg VBG pO2 27 mmHg VBG HCO3 38 mmol/L VBG O2 Saturation < 60.0 % VBG Base Excess 8.0 mEq/L Barometric Pressure 722.5 mm/Hg Sodium (136-145) mmol/L Potassium (3.5-5.1) mmol/L Chloride (98-107) mmol/L Carbon Dioxide (21-32) mmol/L Anion Gap (3-11) BUN (7-18) mg/dl Creatinine (0.6-1.2) mg/dl Est Cr Clr Drug Dosing ml/min Est GFR ( Amer) Est GFR (Non-Af Amer) BUN/Creatinine Ratio (10-20) Glucose (70-99) mg/dl POC Glucose 258 H (70-99) Lactate (0.4-2.0) mmol/L Calcium (8.5-10.1) mg/dl Phosphorus 3.1 (2.5-4.9) mg/dl Magnesium 2.0 (1.8-2.4) mg/dl Total Bilirubin (0.2-1) mg/dl AST (15-37) U/L ALT (12-78) U/L Alkaline Phosphatase (45-117) U/L Troponin I (0-0.045) ng/ml NT-Pro-B Natriuret Pep (0-450) pg/ml Total Protein (6.4-8.2) gm/dl Albumin (3.4-5.0) gm/dl Globulin (2.5-4.0) gm/dl Albumin/Globulin Ratio (0.9-2) Imaging Data Radiologist's Impression: Radiology results as stated below per my review and the radiologist's interpretation: XR chest 1V portable CLINICAL HISTORY: 49 years-old Female presenting with SOB. TECHNIQUE: Portable upright AP view of the chest was obtained. COMPARISON: CT chest from 12/21/2018 and chest x-ray from 04/15/2018. FINDINGS: A right internal jugular Mediport terminates in the lower SVC and has been accessed. Cardiomediastinal silhouette normal. Lungs are mildly hyperinflated. No focal opacity. No large effusion or pneumothorax. Degenerative changes of the thoracic spine. Upper abdomen normal. IMPRESSION: 1. No acute cardiopulmonary disease. Electronically signed by: Stef Lackey M.D. 02/08/2019 6:[address] angio chest PE protocol CLINICAL HISTORY: 49 years-old Female presenting with atypical chest pain, history of lymphoma. TECHNIQUE: Multidetector CT angiography of the chest was performed after administration of intravenous contrast. 3-D volumetric and/or maximum intensity projection (MIP) images were subsequently reconstructed for review. IV contrast: 119 mL of Optiray 320. One or more dose lowering techniques were used consistent with the principles of ALARA (as low as reasonably achievable), including automatic exposure control, mA or kV adjustment to individual patient size, and/or use of iterative reconstruction. COMPARISON: 12/21/2018. CT DOSE (mGy.cm): The estimated cumulative dose is 252.90 mGy.cm. 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 Pulmonary vasculature: The study is suboptimal for the assessment of the pulmonary vascular tree secondary to respiratory motion artifact. Allowing for limited image quality, no central filling defect to suggest pulmonary embolus. Main pulmonary artery is not enlarged. No flattening of the interventricular septum. No intracardiac filling defect. Reflux of contrast into the IVC and hepatic veins. This likely indicates elevated right heart pressure. Remaining chest: Soft tissues: Normal thyroid and thoracic inlet. Previously noted left axillary lymphadenopathy with an index node measuring 13 mm in short axis, stable to slightly decreased in size from prior. Normal aorta. Normal heart size. Coronary artery calcification. No pericardial or pleural effusion. Limited evaluation of the upper abdomen due to the phase of contrast. Lungs and airways: No pneumothorax. Layering debris in the lower trachea. Pulmonary arteries are not significantly enlarged relative to adjacent bronchi. Trace centrilobular septal thickening. Prominent mosaic attenuation suggesting small airways disease. Respiratory motion artifact grades evaluation of lung parenchyma. Allowing for this, no focal nodule or infiltrate. Few punctate fissural nodules in the left lower lobe, which have benign morphology. Musculoskeletal: Normal osseous structures. IMPRESSION: 1. Allowing for suboptimal image quality, no evidence of pulmonary embolus. 2. Mosaic attenuation suggest small airways disease. Evaluation of the lung parenchyma degraded by respiratory motion artifact. 3. Stable to slight interval decrease in left axillary lymphadenopathy. 4. Reflux of contrast into the hepatic veins may suggest elevated right heart pressure. Electronically signed by: Stef Lackey M.D. 02/08/2019 6:47 PM ECG Data Attestation: I personally reviewed and interpreted this ECG as follows: Indication: SOB/dyspnea Rate (beats per minute): 99 Rhythm: normal sinus Findings: + other (normal axis); no acute ischemic change Blood Pressure Blood Pressure Findings: Elevated blood pressure Blood Pressure Disposition: Referred to patients primary care provider MDM Narrative The patient is a pleasant 49-year-old woman with a past medical history of remote lymphoma currently in remission, likely COPD in the setting of a remote smoking history on as needed oxygen at home who presents emergency department with worsening shortness of breath, cough, chest tightness over the past several days per hpi. Patient reports completing treatment for pneumonia last month. On arrival patient is in mild respiratory distress, afebrile, tachypneic in the mid 20s, tachycardic in the 100s and hypertensive. On exam the patient appears clinically dry. She has diminished breath sounds throughout with scant intermittent wheezes. She exhibits pursed lip breathing and tripoding. Patient did have some improvement after DuoNeb however placed on BiPAP given her continued work of breathing. Chest x-ray without acute process. EKG without overt ischemia. WBC, H/H, within normal limits. Platelets 124 similar to prior range. VBG with PCO2 of 75 with pH of 7.32. Chemistry without acidosis. Lactate within normal limits. LFTs unremarkable. Troponin negative. BNP within normal limits. CT a of the chest negative for PE or focal infiltrates. There is evidence of small airway disease as well as increased right heart pressures. Given the patient's respiratory failure in the setting of her COPD will provide coverage for atypical bacteria with azithromycin. Case discussed with Dr. Britt, [facility] hospitalist, will evaluate the patient for admission. This patient was managed with the assistance of resident, Dr. Roche. I discussed the case with the resident, examined the patient, and confirm the findings and plan as documented in this note. Impression & Plan Acute on chronic respiratory failure with hypoxia and hypercapnia Critical Care Time I have personally spent greater than 45 minutes of critical care time in the direct management of this patient. This includes bedside care, interpretation of diagnostic studies, and testing, discussion with consultants, patient, and family members, and other required patient management activities. This 45 minutes is in excess of all separately billable procedures. Critical Care Time: Yes Total Critical Care Time: 45 Discharge Plan Visit Data *Final* Discharge Date/Time: 02/08/19 21:22 Chief Complaint: Shortness of Breath/Dyspnea Stated Complaint: SOB, DIZZINESS ED Provider: Basil Guzman ED Midlevel Provider: Celio Roche Discharge Problem: Acute on chronic respiratory failure with hypoxia and hypercapnia Patient Disposition: Admitted As Inpatient Discharge Instructions Interventions: ED Discharge Assessment Last Done: 02/08/19 21:22 The scribe's documentation has been prepared under my direction and personally reviewed by me in its entirety. I confirm that the note above accurately reflects all work, treatment, procedures, and medical decision making performed by me.
[2019-02-08] MEDS ORDERED: HydrALAZINE HCL 20 MG/ML VIAL IV STA (20:51)
--- NOTE | 2019-02-08 20:53 | History & Physical Report ---
Date of Service February 08, 2019 Assessment & Plan (1) Acute respiratory failure with hypoxia and hypercarbia: Patient presenting in respiratory distress with hypoxia, Sat 70% on room air on arrival. Respiratory acidosis, pH of 7.32, PCO2 of 75 on VBG. Improved clinically with administration of nebs and placement of BiPAP. Uncertain of formal pulmonary diagnosis. Patient reports that some of her shortness of breath is from her prior chemotherapy - per record review she was treated with Rituxan. Has not had formal Pulmonary workup. Concern for undiagnosed COPD given extensive history of tobacco use as well as mild hyperinflation on CXR, laboratory suggestion of chronic CO2 retention. Also concern for elevated right heart pressures as mentioned on CT, ?Pulmonary Hypertension contributing to SOB as well. Patient would benefit from PFTs to start and possible outpatient Pulmonary evaluation. -Admit to PCU -DuoNeb q 4 hours -Albuterol q 2 hours PRN -Supplemental O2 - BiPAP as needed, goal saturation 88-92% -Azithromycin -SoluMedrol 30mg IV BID Present on Admission?: Yes (2) Diabetes: Blood sugar presently 149. Last HgAIC= 9.3 from April 2018. Patient reports compliance with home insulin - 3u glargine qHS and Novolog SS -Continue Lantus 3u qHS -Novolog SS, may need to increase coverage with steroid use. Goal BS 80 - 140 -CC diet as tolerated Present on Admission?: Yes (3) Hypertension: Blood pressure markedly elevated on arrival. Has since improved. Patient does not appear to be on any antihypertensive agents at present. -Obtain last PCP note to assist with accurate medication reconciliation -Monitor BP (4) Hyperlipidemia: Patient with documented history of HLP. Does not appear to be on a statin. Also with reported history of prior CVA -Outpatient note as above -Patient may benefit from ASA and statin therapy (5) Lymphoma: Patient with history of follicular cell non-Hodgkin's lymphoma diagnosed 05/2017. She follows with Dr. Ayala. Was receiving Rituxan therapy and has since completed her course. She is to have her Mediport removed. -Outpatient followup as arranged F/E/N - heplock. Monitor electrolytes and replete as needed. CC/heart healthy diet as tolerated PPx - Lovenox Code - DNR per discussion with patient Dispo - PCU History of Present Illness Chief Complaint: SOB Primary Care Provider: Gregory Christy Chyna Salguero is a 49yo female with history of HTN, HLP, DM, prior CVA with no residual deficit, Lymphoma and chronic hypoxia on home O2, 2L by [place]. Patient states that she had PNA followed by bronchitis in December and December of this year. She completed her antibiotics as prescribed. Feels that she never fully recovered and finds that she is more short of breath than before her illness. Her SOB has acutely worsened over the last three days. Patient becomes dyspneic with minimal exertion such as ambulating 15-20 feet in her home. She also reports substernal chest tightness and dry cough. She denies palpitations, fevers, chills, allergy or URI symptoms. Denies edema, weight gain. Patient tachycardic on arrival, 101, BP of 180/102, RR of 22 with 79% on RA. Patient with no formal diagnosis of COPD or Asthma per our records. She is a former smoker, 2ppd for some years. 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 She was admitted in April 2018 with acute respiratory failure with hypoxia secondary to tracheobronchitis. She was treated with steroids, Azithromycin and nebulizers with improvement in symptoms. She was found with hypoxia, 88% on room air and was set up with home O2 on discharge from that hospital stay. She was recommended to followup with Pulmonology and have outpatient PFTs performed for possible diagnosis of COPD or other lung disease. She does not recall if she saw Pulmonary or had PFTs performed. She still uses O2, 2L at all times. Reports that her hypoxia is from prior chemotherapy ER course: Albuterol x 2, Azithromycin 500mg, Solumedrol 125mg, NSS x 2L, Hydralazine 10mg IV, BiPAP Allergies Allergy/AdvReac Type Severity Reaction Status Date / Time cyclobenzaprine Allergy Intermediate HALLUCINATI Verified 02/08/19 17:00 ON lidocaine Allergy Intermediate ITCHING Verified 02/08/19 17:00 AND BURNING ON CONTACT nystatin Allergy Intermediate ITCHING Verified 02/08/19 17:00 AND BURNING cefaclor Allergy Mild SICK TO Verified 02/08/19 17:00 STOMACH morphine Allergy Mild VOMITTING Verified 02/08/19 17:00 Home Medications Home Medications Medication Instructions Recorded Confirmed Type Raw Honey 1 tsp PO DAILY 02/03/19 02/08/19 History Silver Shield 1 dose PO BID 02/03/19 02/08/19 History albuterol sulfate 0.63 mg INHALATION QID PRN 02/03/19 02/08/19 History albuterol sulfate 1 inh INHALATION QID PRN 02/03/19 02/08/19 History insulin aspart U-100 [Novolog 1 dose SUBCUT TID 02/03/19 02/08/19 History U-100 Insulin aspart] insulin glargine [Basaglar KwikPen 3 unit SUBCUT HS 02/03/19 02/08/19 History U-100 Insulin] ipratropium-albuterol [Combivent 1 puff INHALATION QID PRN 02/03/19 02/08/19 History Respimat] lactobacillus combination no.4 3 cap PO DAILY 02/03/19 02/08/19 History [Probiotic] Past Med/Surg History Social History Preferred Language: [place] Communication Ability: Effective Beliefs That Will Affect Care: None Current Living Situation: Alone Feels Safe at Home: Yes Smoking Status: Former smoker Hx Alcohol Use: No Hx Substance Use: No Review of Systems All systems reviewed & are unremarkable except as noted in HPI & below Physical Exam Vital Signs (Past 24 Hours): Last Vital Signs Temp 36.6 C 02/08/19 16:25 Pulse 110 H 02/08/19 20:30 Resp 25 H 02/08/19 20:30 BP 216/114 H 02/08/19 17:45 Pulse Ox 98 02/08/19 20:30 Physical Exam: General: patient resting comfortably, BiPAP in place, appears older than stated age, non-toxic in appearance, AA&O x 4 Skin: warm, dry, intact, no rashes or lesions HEENT: NC/AT, PERRL, EOMI, anicteric sclera, conjunctiva without injection, external ear normal to inspection and nontender, nares patent, moist mucus membranes, dentition intact, no oropharyngeal lesions, neck supple, trachea midline, no LAD, no thyromegaly, no JVD Heart: +S1/S2, regular and tachycardic, +S4 gallop appreciated, regular, no m/r, MediPort present in right chest, nontender to palpation, no exudate/erythema Lungs: equal air entry bilaterally, diminished, diffuse wheezing throughout Abd: +BS, soft, NT/ND, no masses/organomegaly/ascites Ext: warm, 2+ pulses in UE/LE bilaterally, no clubbing/cyanosis or edema Neuro: nonfocal, patient AA&O x 4, speech intact, no facial droop, moving all extremities on command with equal strength 5/5 Results & Data Laboratory Results Lab Results 02/08/19 02/08/19 02/08/19 Range/Units 17:24 17:24 17:24 WBC 7.26 (4.8-10.8) K/uL RBC 5.29 (4.2-5.4) M/uL Hgb 15.2 (12.0-16.0) g/dL Hct 44.0 (37-47) % MCV 83.2 (80-100) fL MCH 28.7 (25-34) pg MCHC 34.5 (32-36) g/dL RDW Std Deviation 41.1 (36.4-46.3) fL RDW Coeff of Leopoldo 13.7 (11.5-14.5) % Plt Count 124 L (130-400) K/uL MPV 9.7 (7.4-10.4) fL Immature Gran % (Auto) 0.1 % Neut % (Auto) 58.4 % Lymph % (Auto) 26.2 % Sharkey % (Auto) 10.9 % Eos % (Auto) 4.1 % Baso % (Auto) 0.3 % Immature Gran # (Auto) 0.01 (0.00-0.02) K/uL Neut # (Auto) 4.24 (1.4-6.5) K/uL Lymph # (Auto) 1.90 (1.2-3.4) K/uL Sharkey # (Auto) 0.79 H (0.11-0.59) K/uL Eos # (Auto) 0.30 (0-0.5) K/uL Baso # (Auto) 0.02 (0-0.2) K/uL VBG pH (7.36-7.41) VBG pCO2 (38-50) mmHg VBG pO2 mmHg VBG HCO3 mmol/L VBG O2 Saturation % VBG Base Excess mEq/L Barometric Pressure mm/Hg Sodium 140 (136-145) mmol/L Potassium 4.0 (3.5-5.1) mmol/L Chloride 103 (98-107) mmol/L Carbon Dioxide 33 H (21-32) mmol/L Anion Gap 4.0 (3-11) BUN 10 (7-18) mg/dl Creatinine 0.47 L (0.6-1.2) mg/dl Est Cr Clr Drug Dosing 128.5 ml/min Est GFR ( Amer) 136.3 Est GFR (Non-Af Amer) 117.6 BUN/Creatinine Ratio 20.5 H (10-20) Glucose 149 H (70-99) mg/dl Lactate 0.8 (0.4-2.0) mmol/L Calcium 11.3 H (8.5-10.1) mg/dl Total Bilirubin 0.6 (0.2-1) mg/dl AST 14 L (15-37) U/L ALT 16 (12-78) U/L Alkaline Phosphatase 94 (45-117) U/L Troponin I < 0.015 (0-0.045) ng/ml NT-Pro-B Natriuret Pep 33 (0-450) pg/ml Total Protein 7.5 (6.4-8.2) gm/dl Albumin 3.6 (3.4-5.0) gm/dl Globulin 3.9 (2.5-4.0) gm/dl Albumin/Globulin Ratio 0.9 (0.9-2) /07/21 Range/Units 18:05 WBC (4.8-10.8) K/uL RBC (4.2-5.4) M/uL Hgb (12.0-16.0) g/dL Hct (37-47) % MCV (80-100) fL MCH (25-34) pg MCHC (32-36) g/dL RDW Std Deviation (36.4-46.3) fL RDW Coeff of Leopoldo (11.5-14.5) % Plt Count (130-400) K/uL MPV (7.4-10.4) fL Immature Gran % (Auto) % Neut % (Auto) % Lymph % (Auto) % Sharkey % (Auto) % Eos % (Auto) % Baso % (Auto) % Immature Gran # (Auto) (0.00-0.02) K/uL Neut # (Auto) (1.4-6.5) K/uL Lymph # (Auto) (1.2-3.4) K/uL Sharkey # (Auto) (0.11-0.59) K/uL Eos # (Auto) (0-0.5) K/uL Baso # (Auto) (0-0.2) K/uL VBG pH 7.32 L (7.36-7.41) VBG pCO2 75 H (38-50) mmHg VBG pO2 27 mmHg VBG HCO3 38 mmol/L VBG O2 Saturation < 60.0 % VBG Base Excess 8.0 mEq/L Barometric Pressure 722.5 mm/Hg Sodium (136-145) mmol/L Potassium (3.5-5.1) mmol/L Chloride (98-107) mmol/L Carbon Dioxide (21-32) mmol/L Anion Gap (3-11) BUN (7-18) mg/dl Creatinine (0.6-1.2) mg/dl Est Cr Clr Drug Dosing ml/min Est GFR ( Amer) Est GFR (Non-Af Amer) BUN/Creatinine Ratio (10-20) Glucose (70-99) mg/dl Lactate (0.4-2.0) mmol/L Calcium (8.5-10.1) mg/dl Total Bilirubin (0.2-1) mg/dl AST (15-37) U/L ALT (12-78) U/L Alkaline Phosphatase (45-117) U/L Troponin I (0-0.045) ng/ml NT-Pro-B Natriuret Pep (0-450) pg/ml Total Protein (6.4-8.2) gm/dl Albumin (3.4-5.0) gm/dl Globulin (2.5-4.0) gm/dl Albumin/Globulin Ratio (0.9-2) Diagnostic Findings XR chest 1V portable CLINICAL HISTORY: 49 years-old Female presenting with SOB. TECHNIQUE: Portable upright AP view of the chest was obtained. COMPARISON: CT chest from 12/21/2018 and chest x-ray from 04/15/2018. FINDINGS: A right internal jugular Mediport terminates in the lower SVC and has been accessed. Cardiomediastinal silhouette normal. Lungs are mildly hyperinflated. No focal opacity. No large effusion or pneumothorax. Degenerative changes of the thoracic spine. Upper abdomen normal. IMPRESSION: 1. No acute cardiopulmonary disease. Electronically signed by: Stef Lackey M.D. 02/08/2019 6:17 PM Dictated: 02/08/191814 Transcribed: 02/08/191814 CT angio chest PE protocol CLINICAL HISTORY: 49 years-old Female presenting with atypical chest pain, history of lymphoma. TECHNIQUE: Multidetector CT angiography of the chest was performed after administration of intravenous contrast. 3-D volumetric and/or maximum intensity projection (MIP) images were subsequently reconstructed for review. IV contrast: 119 mL of Optiray 320. One or more dose lowering techniques were used consistent with the principles of ALARA (as low as reasonably achievable), including automatic exposure control, mA or kV adjustment to individual patient size, and/or use of iterative reconstruction. COMPARISON: 12/21/2018. CT DOSE (mGy.cm): The estimated cumulative dose is 252.90 mGy.cm. FINDINGS: [employer] Coordinator topogram: Right internal jugular Mediport terminates in SVC. Pulmonary vasculature: The study is suboptimal for the assessment of the pulmonary vascular tree secondary to respiratory motion artifact. Allowing for limited image quality, no central filling defect to suggest pulmonary embolus. Main pulmonary artery is not enlarged. No flattening of the interventricular septum. No intracardiac filling defect. Reflux of contrast into the IVC and hepatic veins. This likely indicates elevated right heart pressure. Remaining chest: Soft tissues: Normal thyroid and thoracic inlet. Previously noted left axillary lymphadenopathy with an index node measuring 13 mm in short axis, stable to slightly decreased in size from prior. Normal aorta. Normal heart size. Coronary artery calcification. No pericardial or pleural effusion. Limited evaluation of the upper abdomen due to the phase of contrast. Lungs and airways: No pneumothorax. Layering debris in the lower trachea. Pulmonary arteries are not significantly enlarged relative to adjacent bronchi. Trace centrilobular septal thickening. Prominent mosaic attenuation suggesting small airways disease. Respiratory motion artifact grades evaluation of lung parenchyma. Allowing for this, no focal nodule or infiltrate. Few punctate fissural nodules in the left lower lobe, which have benign morphology. Musculoskeletal: Normal osseous structures. IMPRESSION: 1. Allowing for suboptimal image quality, no evidence of pulmonary embolus. 2. Mosaic attenuation suggest small airways disease. Evaluation of the lung parenchyma degraded by respiratory motion artifact. 3. Stable to slight interval decrease in left axillary lymphadenopathy. 4. Reflux of contrast into the hepatic veins may suggest elevated right heart pressure. Electronically signed by: Stef Lackey M.D. 02/08/2019 6:47 PM Dictated: 02/08/191839 Transcribed: 02/08/191839 Code Status & VTE Plan Code Status DNR VTE Prophylaxis Plan VTE Prophylaxis will be ordered: Yes Critical Care Time Critical Care Time: No (1) Diabetes Diabetes mellitus type: type 2 Diabetes mellitus custodial insulin use: with termite treater use Diabetes mellitus complication status: without complication Qualified Code(s): E11.9 - Type 2 diabetes mellitus without complications; Z79.4 - half-way (current) use of insulin (2) Hypertension Hypertension type: essential hypertension Qualified Code(s): I10 - Essential (primary) hypertension (3) Hyperlipidemia Hyperlipidemia type: unspecified Qualified Code(s): E78.5 - Hyperlipidemia, unspecified (4) Lymphoma Lymphoma type: non-Hodgkin Non-Hodgkin lymphoma type: follicular Follicular lymphoma type: unspecified follicular type Lymphoma site: unspecified region Qualified Code(s): C82.90 - Follicular lymphoma, unspecified, unspecified site
[2019-02-08] MEDS ORDERED: GLUCOSE 10 TABS/TUBE PO PRN (21:48)
[2019-02-08] MEDS ORDERED: GLUCOSE 40% GEL 15 GM TUBE PO PRN (21:48)
[2019-02-08] MEDS ORDERED: ALBUTEROL 0.5% NEB SOLN 2.5 MG/0.5 ML VIAL NEB PRN (21:48)
[2019-02-08] MEDS ORDERED: GLUCAGON FOR INJ 1 MG VIAL SQ PRN (21:48)
[2019-02-08] MEDS ORDERED: DEXTROSE 50% 50 ML SYRINGE IV PRN (21:48)
[2019-02-08] MEDS ORDERED: CARBOHYDRATES FOR HYPOGLYCEMIA PO PRN (21:48)
[2019-02-08 22:10] LABS: Phosphorus 3.1 mg/dl (2.5-4.9)
[2019-02-08] MEDS ORDERED: INSULIN GLARGINE SOLOSTAR 100 UNITS/ML 3 ML PEN SQ SCH (22:15)
[2019-02-08] MEDS: ACETAMINOPHEN 325 MG TAB PO PRN (22:25)
[2019-02-08] MEDS: INSULIN ASPART 100 UNITS/ML 3 ML PEN SC SCH (23:26)
[2019-02-08] MEDS: methylPREDNISolone 30 MG in SYRINGE 0 ML IV SCH (23:26)
[2019-02-08] MEDS ORDERED: HEPARIN 100 UNIT/ML 5ML FLUSH FLUSH PRN (23:51)
[2019-02-09] MEDS: ALBUT/IPRATROP 3MG/0.5MG NEB 3 ML VIAL NEB SCH ×7 (03:29→23:11)
[2019-02-09] MEDS: ACETAMINOPHEN 325 MG TAB PO PRN (03:36)
[2019-02-09] MEDS ORDERED: INSULIN ASPART 100 UNITS/ML 3 ML PEN SC STA (03:44)
[2019-02-09 07:19] LABS: Hematocrit (blood only) 42.2 % (37-47); Hemoglobin 14.3 g/dL (12.0-16.0); Immature Granulocytes # (auto) 0.01 K/uL (0.00-0.02); Immature Granulocytes % (auto) 0.2 %; Lymphocytes # (auto) 0.76 K/uL (1.2-3.4); Lymphocytes % (auto) 12.9 %; Mean Corpuscular Hgb Conc 33.9 g/dL (32-36); Mean Corpuscular Volume 83.6 fL (80-100); Mean Platelet Volume 9.5 fL (7.4-10.4); Monocytes # (auto) 0.09 K/uL (0.11-0.59); Monocytes % (auto) 1.5 %; Neutrophils # (auto) 5.02 K/uL (1.4-6.5); Neutrophils % (auto) 85.4 %; Platelet Count 110 K/uL (130-400); RDW Coefficient of Variation 13.7 % (11.5-14.5); RDW Standard Deviation 40.9 fL (36.4-46.3); Red Blood Count 5.05 M/uL (4.2-5.4); White Blood Count 5.88 K/uL (4.8-10.8)
[2019-02-09 07:34] LABS: Blood Urea Nitrogen 12 mg/dl (7-18); Calcium 10.8 mg/dl (8.5-10.1); Carbon Dioxide 32 mmol/L (21-32); Chloride 102 mmol/L (98-107); Creatinine Clr Calc Pharmacy 105.6 ml/min; Est GFR (African American) 125.8; Est GFR (Non-African American) 108.5; Glucose 327 mg/dl (70-99); Potassium 4.5 mmol/L (3.5-5.1); Sodium 136 mmol/L (136-145)
[2019-02-09 07:44] LABS: Beta-Hydroxybutyrate 2.49 mg/dl (0.2-2.81); Troponin I < 0.015 ng/ml (0-0.045)
[2019-02-09] MEDS: INSULIN ASPART 100 UNITS/ML 3 ML PEN SC SCH ×4 (07:56→20:44)
[2019-02-09] MEDS: AZITHROMYCIN 250 MG in DEXTROSE 5% 250 ML IV SCH (08:02)
[2019-02-09] MEDS: methylPREDNISolone 30 MG in SYRINGE 0 ML IV SCH ×2 (09:59→22:08)
[2019-02-09] MEDS: INSULIN GLARGINE SOLOSTAR 100 UNITS/ML 3 ML PEN SQ SCH ×2 (12:05→20:46)
--- NOTE | 2019-02-09 15:46 | Family Medicine Progress Note ---
Date of Service February 09, 2019 Assessment & Plan (1) Acute on chronic respiratory failure with hypoxia and hypercapnia: 49 y/o F with h/o NHL here with resp distress and Sat 70% on RA with CO2 of 75 on VBG Improved clinically with administration of nebs and placement of BiPAP. Acute respiratory failure with hypoxia and hypercarbia: Oxygenating well on vapotherm for respiratory support Uncertain pulmonary ds Hasn't had pulmonary work up. Was treated with rituxan in past. Concern for undiagnosed COPD given extensive history of tobacco use as well as mild hyperinflation on CXR and CO2 retention, elevated right heart pressures on CT. -Will check PFT once respiratory status stable. -DuoNeb q 4 hours -Albuterol q 2 hours PRN -Azithromycin -SoluMedrol 30mg IV BID -Check echo -consult pulmonary Diabetes: Glycemic consult. Last HgAIC= 9.3 from April 2018. Patient reports compliance with home insulin - 3u glargine qHS and Novolog SS -Continue Lantus 3u qHS -Novolog SS, Lymphoma: Follicular NHL - diagnosed 05/2017 -Follows with Dr. Ayala. Was receiving Rituxan therapy and has since completed her course. She is to have her Mediport removed. -Outpatient followup as arranged Elevated BP in ED: Likely stress response. Improved. Follow. CVA -Outpatient note as above -Patient may benefit from ASA and statin therapy Hyperlipidemia: -Patient with documented history of HLP. Does not appear to be on a statin. Also with reported history of prior F/E/N - heplock. Monitor electrolytes and replete as needed. CC/heart healthy diet as tolerated PPx - Lovenox Code - DNR per discussion with patient Subjective breathing somewhat better. denies cough no fever. no chest pain. Physical Exam Vital Signs (Past 24 Hours): Last Vital Signs Temp 37 C 02/09/19 12:03 Pulse 80 02/09/19 15:25 Resp 16 02/09/19 15:25 BP 114/68 02/09/19 12:03 Pulse Ox 96 02/09/19 15:25 Constitutional: Sitting at the edge of bed. Vapotherm nasal cannula in place Respiratory: Good air entry in both lung field. No r/r/w Cardiovascular: RRR, no murmur, no edema Gastrointestinal (Abdomen): normal bowel sounds, soft, nontender, no hepatosplenomegaly Psychiatric: A+Ox3, euthymic affect
--- NOTE | 2019-02-10 03:04 | Consultation Report ---
DATE OF CONSULTATION: 02/09/2019 REASON FOR CONSULTATION: Hypoxemia/COPD. HISTORY OF PRESENT ILLNESS: A 49-year-old white female was admitted by Dr. Lizzette Britt on 02/08/2019 because of progressive dyspnea that has become quite severe, associated respiratory distress and marked hypoxemia. The patient has a history of follicular cell non-Hodgkin's lymphoma diagnosed in 05/2017 and has been under the care of Dr. Alex Ayala/division of hematology/oncology with the [facility]. She also has a history of hypertension, dyslipidemia, diabetes mellitus and previous CVA with no residual deficit. She has a history of COPD and longstanding smoking history. She admits to between 10 and 20 years of at least a pack of cigarettes a day, having quit in the remote past. Her primary care physician or provider is Gregory Christy. At one point, she did smoke up to 2 packs of cigarettes a day. 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 She has had recurrent bouts of tracheobronchitis. Most recently was treated with a course of azithromycin and the use of her nebulizer. She has been on home oxygen apparently since this past year. She was seen in the ER, given IV Solu-Medrol and IV hydralazine for hypertension along with aerosolized bronchodilator. She has a cough that is nonproductive and was placed initially on high-flow O2 utilizing Precision Flow Plus from [employer] fluctuating between 20 and 40 L per minute of high-flow oxygen. It is humidified. She is now currently on low flow O2 with adequate saturation. ProBNP was within normal limits on admission. I need to obtain the records from Dr. Ayala but apparently was treated with Rituxan for her follicular lymphoma and has been off therapy this past year. She states she was told that the chemotherapy may have contributed to her level of hypoxemia. There was no family history of significant lung disease or certainly no one required oxygen at her young age. There is no previous history of pulmonary thromboembolic disease. I have been asked to see patient in consultation. LABORATORY DATA: She has H and H of 14 and 42 with a normal white count. Platelet count is suppressed at 110,000; 4.1% peripheral eosinophilia noted on admission and 4.5% in the past. PET/CT scan on 07/21/2018 reviewed and compared to previous CT scan of 12/21/2018. There is mosaic attenuation suggesting small airways disease but motion artifact is noted. No obvious evidence of pulmonary thromboembolic disease. There is a decrease in left axillary lymphadenopathy and reflux of contrast into the hepatic veins, which may suggest elevated right heart pressures. EKG on admission showed normal sinus rhythm with a heart rate of 99. ABGs that appeared to be venous, where pH of 7.32, pCO2 of 75, pO2 of 27 on admission. Glucose levels in the high 300s, BUN 12, creatinine 0.6, calculated CO2 of 32. Influenza A and B PCR negative. PHYSICAL EXAMINATION: GENERAL: This is a well-developed, thin white female, eating her dinner without distress. CURRENT VITAL SIGNS: Blood pressure 117/69, pulse 86 and regular, respiratory rate 20, temperature 36.3, O2 sat 98% on 4 L. SKIN: Without lesion. HEENT: Atraumatic, normocephalic. PERRLA. LUNGS: Distant P and A with hyperresonance. CARDIAC: Regular rate and rhythm. I do not appreciate a gallop. ABDOMEN: Soft, scaphoid. EXTREMITIES: Trace pedal edema. No clubbing or cyanosis. NEUROLOGIC: Intact. A CTA and all the lab data, see HPI. OVERALL ASSESSMENT: A 49-year-old with a remote history of follicular cell nonHodgkin's lymphoma treated with IV Rituxan as per protocol (I have sent for Dr. Ayala's notes) and with clear evidence of hyperinflation and mosaic attenuation secondary to a combination of chronic obstructive pulmonary disease and asthma. I suspect she has a degree of pulmonary hypertension, although I do not see a flattening of the interventricular septum. The reflux seen in the vena cava could suggest elevated right heart pressures. Certainly like to know if patient has an alpha 1 antitrypsin deficiency. There are an element percentage of patients who get Rituxan-induced lung disease. I think that would be less likely, but is curious about her level of hypoxemia and O2 requirements as well as the onset of symptomatology during therapy. We will peruse the old records and check an echocardiogram to see if we can assess for pulmonary arterial pressures. In addition, we will need baseline pulmonary function studies and check alpha 1 antitrypsin level. [facility]
[2019-02-10] MEDS: ALBUT/IPRATROP 3MG/0.5MG NEB 3 ML VIAL NEB SCH ×6 (03:19→23:00)
[2019-02-10 07:31] LABS: Basophils # (auto) 0.01 K/uL (0-0.2); Basophils % (auto) 0.1 %; Hematocrit (blood only) 42.1 % (37-47); Hemoglobin 13.8 g/dL (12.0-16.0); Immature Granulocytes # (auto) 0.05 K/uL (0.00-0.02); Immature Granulocytes % (auto) 0.3 %; Lymphocytes # (auto) 0.97 K/uL (1.2-3.4); Lymphocytes % (auto) 6.2 %; Mean Corpuscular Hgb Conc 32.8 g/dL (32-36); Mean Corpuscular Volume 86.8 fL (80-100); Mean Platelet Volume 9.5 fL (7.4-10.4); Monocytes # (auto) 0.85 K/uL (0.11-0.59); Monocytes % (auto) 5.4 %; Neutrophils # (auto) 13.77 K/uL (1.4-6.5); Platelet Count 120 K/uL (130-400); RDW Standard Deviation 44.1 fL (36.4-46.3); Red Blood Count 4.85 M/uL (4.2-5.4); White Blood Count 15.65 K/uL (4.8-10.8)
[2019-02-10 07:38] LABS: BUN Creatinine Ratio 25.7 (10-20); Calcium 10.7 mg/dl (8.5-10.1); Creatinine Clr Calc Pharmacy 132.6 ml/min; Est GFR (African American) 132.7; Est GFR (Non-African American) 114.5; Potassium 4.9 mmol/L (3.5-5.1)
[2019-02-10 08:13] LABS: HCO3 ABG 35 mmol/L (19-24); Oxygen Saturation ABG 97.9 % (90-95); PCO2 ABG 60 mmHg (35-46); PO2 ABG 109 mm/Hg (80-95); pH ABG 7.38 (7.35-7.45)
[2019-02-10 08:14] LABS: Allen Test Pos (Pos)
[2019-02-10] MEDS: INSULIN ASPART 100 UNITS/ML 3 ML PEN SC SCH ×4 (08:20→21:17)
[2019-02-10] MEDS: AZITHROMYCIN 250 MG in DEXTROSE 5% 250 ML IV SCH (08:38)
[2019-02-10] MEDS ORDERED: INSULIN GLARGINE SOLOSTAR 100 UNITS/ML 3 ML PEN SQ SCH (09:00)
[2019-02-10] MEDS: methylPREDNISolone 30 MG in SYRINGE 0 ML IV SCH ×2 (09:34→21:17)
[2019-02-10] MEDS ORDERED: PHARMACY GLYCEMIC MGMT CONSULT PRN (12:54)
[2019-02-10] MEDS ORDERED: MODERATE STRESS LEVEL SCH (13:11)
[2019-02-10] MEDS ORDERED: INSULIN PROTOCOL GOAL RANGE SCH (13:11)
--- NOTE | 2019-02-10 13:31 | Pharmacy Report ---
Glycemic Control Consultation - Date of Service February 10, 2019 - Scope Scope: Glycemic Pharmacist consulted for glycemic control and to write orders per [facility] inpatient glycemic control protocol - Objective Weight: 61.8 kg Accuchecks BSG (last 24hrs): 02/09/19 02/09/19 02/10/19 16:37 20:18 06:51 Glucose 263 H POC Glucose 263 H 257 H 02/10/19 02/10/19 07:40 11:31 Glucose POC Glucose 217 H 267 H Laboratory Data (last 24hrs): 02/10/19 06:51 Potassium 4.9 Carbon Dioxide 34 H Anion Gap 3.0 Creatinine 0.51 L Est Cr Clr Drug Dosing 132.6 - Recent Pertinent Medications Outpatient Anti-diabetic Regimen: * Basaglar 3 units SC HS * Novolog SC TID * A1c outdated. On order for 02/11/19. The patient is currently receiving: * Basal insulin: Lantus 8 units every 12 hours * Correctional Insulin: Novolog Correction per scale ACHS Goal Range: Low 80 mg/dL - High 140 mg/dL Correction Factor: 20 mg/dL/unit * Prandial insulin: Per carb ratio of 1 unit per 12 grams CHO consumed Risk Factors for Insulin Resistance: * Steroids: methylprednisolone 30 mg IV q12h * Infection: pulmonary, on azithromycin * Diet: T2DM - Assessment & Plan Assessment & Plan: ASSESSMENT: * 49 yo F with T1DM admitted with acute respiratory failure. History of NHL, possibly undiagnosed COPD, and tobacco use * HbA1c outdated - on order for tomorrow * Patient has been receiving substantially more insulin that her reported outpatient requirements, but is still significantly hyperglycemic with BSG's ranging 217-263 mg/dL in the last 24 hours. She also had 2 BSG's in the 300's yesterday. * Etiology of hyperglycemia is likely steroid related insulin resistance * Concerned that current aggressive regimen is not adequately managing BSG's, especially as patient is also at risk for severe hypoglycemia as a type 1 diabetic * Safest option for this patient would be an insulin drip. Anticipate patient will need to remain on insulin drip while on steroids. * To help eventual transition back to outpatient regimen of Basaglar HS, will continue low-dose Lantus HS (dose dependent on insulin drip rate) * Despite having type 1 diabetes, OK to keep diet as type 2 diet as this will provide less CHO which may help decrease insulin requirements / fluctuations while on steroids PLAN FOR INPATIENT GLYCEMIC CONTROL: * Start IV insulin infusion per moderate/severe stress protocol * Goal Range 120 - 180 mg/dl * Basal insulin * Lantus 3 units SQ HS (hold if insulin drip rate less than 1 unit/hr) * Bolus insulin * NovoLog per scale PCHS with CHO ratio determined by insulin drip calculator * Please note that the plan above was derived based on current level of insulin resistance and hospital stress. These recommendations are appropriate for inpatient admission only. Plan of care upon discharge will need to be reassessed to avoid potential outpatient hypo/hyperglycemia. Thank you.
[2019-02-10] MEDS ORDERED: INSULIN HUMAN REGULAR IV BOLUS 1.5 UNITS in SYRINGE 0 ML IV ONE (13:45)
[2019-02-10] MEDS ORDERED: INSULIN REGULAR 250 UNITS in SODIUM CHLORIDE 0.9% 247.5 ML IV SCH (13:45)
--- NOTE | 2019-02-10 14:50 | Family Medicine Progress Note ---
Date of Service February 10, 2019 Assessment & Plan (1) Acute on chronic respiratory failure with hypoxia and hypercapnia: 49 y/o F with h/o NHL here with resp distress and Sat 70% on RA with CO2 of 75 on VBG Improved clinically with administration of nebs and placement of BiPAP. Acute respiratory failure with hypoxia and hypercarbia: Oxygenating well on vapotherm for respiratory support Uncertain pulmonary ds Hasn't had pulmonary work up. Was treated with rituxan in past. Concern for undiagnosed COPD given h/o tobacco use as well as mild hyperinflation on CXR and CO2 retention, elevated right heart pressures on CT. -Will check PFT once respiratory status stable. -DuoNeb q 4 hours -Albuterol q 2 hours PRN -Azithromycin -SoluMedrol 30mg IV BID -Echo results pending -Pulmonary awaiting records. Diabetes: Glycemic consult. Last HgAIC= 9.3 from April 2018. Patient reports compliance with home insulin - 3u glargine qHS and Novolog SS - Glycemic consult due to elevated blood sugar while on steroids. Lymphoma: Follicular NHL - diagnosed 05/2017 -Follows with Dr. Ayala. Was receiving Rituxan therapy and has since completed her course. She is to have her Mediport removed. -Outpatient followup as arranged CVA - reported history -Patient may benefit from ASA and statin therapy Hyperlipidemia: -Patient with documented history of HLP. Does not appear to be on a statin. F/E/N - heplock. CC/heart healthy diet as tolerated PPx - Lovenox Code - DNR per discussion with patient Subjective breathing better. was able to sleep flat on bed last night. denies cough no fever. no chest pain. Physical Exam Vital Signs (Past 24 Hours): Last Vital Signs Temp 36.4 C L 02/10/19 11:35 Pulse 86 02/10/19 11:35 Resp 22 02/10/19 11:35 BP 102/62 02/10/19 11:35 Pulse Ox 99 02/10/19 11:35 Constitutional: WD/WN, vitals as above Respiratory: normal respiratory effort, lungs clear to auscultation Cardiovascular: RRR, no murmur, no edema Gastrointestinal (Abdomen): normal bowel sounds, soft, nontender, no hepatosplenomegaly
[2019-02-10] MEDS ORDERED: INSULIN GLARGINE SOLOSTAR 100 UNITS/ML 3 ML PEN SC SCH (21:00)
--- NOTE | 2019-02-10 21:13 | Progress Note ---
DATE: 02/10/2019 PULMONARY MEDICINE PROGRESS NOTE Chart reviewed, patient examined and assessed. SUBJECTIVE: Feels somewhat better today, definitely feels improved when receiving aerosolized bronchodilator and on current O2 supplementation. She antidates her symptoms coinciding with the administration of Rituxan but that may have been simply coincidental. She has not received maintenance Rituxan since September of 2018. She is currently on azithromycin, IV Solu-Medrol, and aerosolized bronchodilator. She does have a past smoking history and CAT scan is certainly compatible with hyperinflation. OBJECTIVE: VITAL SIGNS: Currently, blood pressure 134/80, pulse 77 and regular, respiratory rate 18, temperature 36.5, O2 sat 94% on 4 liters. SKIN: Without lesion. HEENT: Atraumatic, normocephalic, PERRLA, EOMI. Conjunctivae pale. Sclerae nonicteric. Fundi poorly visualized. NECK: Neck veins are not distended at 45 degrees. No lymphadenopathy in the supra or infraclavicular areas. LUNGS: Markedly distant breath sounds with hyperresonance. CARDIAC: Regular rate and rhythm. I do not appreciate a gallop. ABDOMEN: Soft, scaphoid. EXTREMITIES: No pedal edema, clubbing, or cyanosis. NEUROLOGICAL: Intact. No lateralizing signs. LABORATORY DATA: CTA as noted. Blood cultures negative. White count on steroids 15,000, H and H 13 and 42, platelet count chronically low at 120,000. Mild peripheral eosinophilia prior to the 10th. ABGs today on 4 liters, pH 7.38, pCO2 of 60, pO2 of 109, BUN 13, creatinine 0.5, glucose level is elevated. Serologies pending. ASSESSMENT: A 49-year-old with [id number] chronic obstructive pulmonary disease, O2 dependent, with exacerbation, checking alpha 1 antitrypsin level and assess for elevated right ventricular pressures and possible pulmonary arterial hypertension. PLAN: Would convert to oral steroid therapy tomorrow as tolerated. Continue to mobilize the patient and will order full PFTs as outpt as well. MTDD
[2019-02-11] MEDS: ALBUT/IPRATROP 3MG/0.5MG NEB 3 ML VIAL NEB SCH ×4 (03:09→15:19)
[2019-02-11 06:35] LABS: Estimated Average Glucose 169 mg/dl; Hemoglobin A1C 7.5 % (4.5-5.6)
[2019-02-11] MEDS: INSULIN ASPART 100 UNITS/ML 3 ML PEN SC SCH ×2 (07:59→12:52)
[2019-02-11] MEDS: AZITHROMYCIN 250 MG in DEXTROSE 5% 250 ML IV SCH (08:00)
[2019-02-11] MEDS: methylPREDNISolone 30 MG in SYRINGE 0 ML IV SCH (09:19)
--- NOTE | 2019-02-11 13:47 | Pharmacy Report ---
Pharmacy Glycemic Short Note 2 - Date of Service February 11, 2019 - Glycemic Short BSG Results (Last 24 hours): 02/10/19 02/10/19 02/10/19 14:11 15:11 16:21 POC Glucose 269 H 239 H 163 H 02/10/19 02/10/19 02/10/19 18:04 19:03 20:06 POC Glucose 300 H 251 H 203 H 02/10/19 02/10/19 02/10/19 21:03 22:03 23:02 POC Glucose 167 H 140 H 143 H 02/11/19 02/11/19 02/11/19 00:06 01:03 02:00 POC Glucose 183 H 186 H 192 H 02/11/19 02/11/19 02/11/19 03:06 04:05 05:01 POC Glucose 179 H 179 H 162 H 02/11/19 02/11/19 02/11/19 07:00 09:18 09:55 POC Glucose 146 H 266 H 252 H 02/11/19 02/11/19 11:01 11:55 POC Glucose 217 H 159 H OUTPATIENT ANTIDIABETIC REGIMEN: * Basaglar 3 units HS * Novolog TID with meals. ASSESSMENT: * Ms. Salguero received 11 units of basal insulin + 18 units of Novolog bolus insulin yesterday in addition to the insulin drip which has been running around 1.5 units/hr. * Patient continues to be on Solu-medrol 30 mg IV q12h, will continue Insulin drip while on steroids. * BSGs have been stable since insulin drip was started. BSG this AM and was above 200 but this is most likely post-prandial since patient had 69 gm CHO for breakfast today. * Will continue basal insulin (Basaglar) at home dose at HS. PLAN FOR INPATIENT GLYCEMIC CONTROL: * Continue IV insulin infusion per moderate stress protocol * Goal Range 120 - 180 mg/dl * Basal insulin * Lantus 3 units SQ HS * Bolus insulin * NovoLog per scale PCHS with CHO ratio determined by insulin drip calculator PLAN FOR DISCHARGE: * HbA1c = 7.5% on 02/10/19 * Patient could be discharged on home regimen of Basaglar and Novolog with meals. HbA1c indicates this patient could have better control, with insulin dose adjustments by out-patient PCP/construction director.
--- NOTE | 2019-02-11 16:54 | Discharge Summary ---
Date of Service February 11, 2019 Admission HPI Per Admitting Provider Chyna Salguero is a 49yo female with history of HTN, HLP, DM, prior CVA with no residual deficit, Lymphoma and chronic hypoxia on home O2, 2L by [place]. Patient states that she had PNA followed by bronchitis in December and December of this year. She completed her antibiotics as prescribed. Feels that she never fully recovered and finds that she is more short of breath than before her illness. Her SOB has acutely worsened over the last three days. Patient becomes dyspneic with minimal exertion such as ambulating 15-20 feet in her home. She also reports substernal chest tightness and dry cough. She denies palpitations, fevers, chills, allergy or URI symptoms. Denies edema, weight gain. Patient tachycardic on arrival, 101, BP of 180/102, RR of 22 with 79% on RA. Patient with no formal diagnosis of COPD or Asthma per our records. She is a former smoker, 2ppd for some years. 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 She was admitted in April 2018 with acute respiratory failure with hypoxia secondary to tracheobronchitis. She was treated with steroids, Azithromycin and nebulizers with improvement in symptoms. She was found with hypoxia, 88% on room air and was set up with home O2 on discharge from that hospital stay. She was recommended to followup with Pulmonology and have outpatient PFTs performed for possible diagnosis of COPD or other lung disease. She does not recall if she saw Pulmonary or had PFTs performed. She still uses O2, 2L at all times. Reports that her hypoxia is from prior chemotherapy ER course: Albuterol x 2, Azithromycin 500mg, Solumedrol 125mg, NSS x 2L, Hydralazine 10mg IV, BiPAP Principal Diagnosis Acute hypoxic, hypercapneic respiratory failure Discharge Exam Constitutional WD/WN, vitals as above Respiratory normal respiratory effort, lungs clear to auscultation Cardiovascular RRR, no murmur, no edema Gastrointestinal (Abdomen) normal bowel sounds, soft, nontender, no hepatosplenomegaly Psychiatric A+Ox3, euthymic affect Discharge Data Allergies Allergy/AdvReac Type Severity Reaction Status Date / Time cyclobenzaprine Allergy Intermediate HALLUCINATI Verified 02/08/19 17:00 ON lidocaine Allergy Intermediate ITCHING Verified 02/08/19 17:00 AND BURNING ON CONTACT nystatin Allergy Intermediate ITCHING Verified 02/08/19 17:00 AND BURNING cefaclor Allergy Mild SICK TO Verified 02/08/19 17:00 STOMACH morphine Allergy Mild VOMITTING Verified 02/08/19 17:00 Consultations 02/08/19 18:56 ED Decision to Admit Stat 02/09/19 15:58 Consult Pulmonology Routine 02/10/19 08:31 HIM [Consult Health Information Management] Stat Ordered Studies 02/08/19 16:53 CT angio chest PE protocol Stat Hospital Course (1) Acute on chronic respiratory failure with hypoxia and hypercapnia: 49 y/o F with h/o NHL here with resp distress and Sat 70% on RA with CO2 of 75 on VBG Improved clinically with administration of nebs and placement of BiPAP. Acute respiratory failure with hypoxia and hypercarbia: Initially kept on bipap and later switched to high flow O2. On oxygen 2L prn at home. 2 step on discharge negative. Uncertain pulmonary ds - likely COPD exacerbation Hasn't had pulmonary work up. Was treated with rituxan in past. Concern for undiagnosed COPD given h/o tobacco use as well as mild hyperinflation on CXR and CO2 retention, elevated right heart pressures on CT. -Will check PFT once respiratory status stable. -Kept on nebs and Azithromycin, IV steroids. -Home on oral steroids. -Echo with normal right and left heart function. -Followed by pulmonology here and will follow up as outpatient for further work up. Diabetes: Last HgAIC= 9.3 from April 2018. Reported compliance with home insulin - 3u glargine qHS and Novolog SS - Kept on insulin drip while here on steroids. - Discharge with home insulin regimen and in addition - NPH 20units daily with prednisone while on prednisone. Lymphoma: Follicular NHL - diagnosed 05/2017 -Follows with Dr. Ayala. Was receiving Rituxan therapy and has since completed her course. She is to have her Mediport removed. -Outpatient followup as arranged CVA - reported history -Patient may benefit from ASA and statin therapy Hyperlipidemia: -Patient with documented history of HLP. Does not appear to be on a statin. Total Time Total Time Spent Total Time Spent (In Minutes): 45 Discharge Plan Discharge Items Patient Disposition: Home - Home Health Services Reason For Visit: RESPIRATORY DISTRESS Discharge Diagnosis: Acute on chronic Hypoxic/Hypercapneic Respiratory failure secondary to possible COPD exacerbation Discharge Goals: Improve disease control Activity: Resume your previous activity Non-emergency contact: Primary Care Provider Call non-emergency contact if: your symptoms worsen Follow-up/Referrals: Gregory Christy [Primary Care Provider] - Diet: Carb Consistent or DM2 and Heart Healthy Addtl Provider Instructions: Follow up with family physician in one week Follow up with Dr. Washington in 2 wks. Prescriptions: New prednisone 20 mg tablet 40 mg PO DAILY Qty: 10 RF: 0 insulin NPH isoph U-100 human 100 unit/mL (3 mL) insulin pen 20 units SQ DAILY Qty: 3 RF: 0 Continued Novolog U-100 Insulin aspart 100 unit/mL Solution 1 dose SUBCUT TID RF: 0 Basaglar KwikPen U-100 Insulin 100 unit/mL (3 mL) Insulin Pen 3 unit SUBCUT HS RF: 0 Probiotic 3 billion cell Capsule 3 cap PO DAILY RF: 0 Raw Honey 1 tsp PO DAILY RF: 0 Silver Shield 1 dose PO BID RF: 0 albuterol sulfate 0.63 mg/3 mL Solution For Nebulization 0.63 mg INHALATION QID PRN (Reason: SHORT OF BREATH) RF: 0 Combivent Respimat 20-100 mcg/actuation Mist 1 puff INHALATION QID PRN (Reason: SHORT OF BREATH) RF: 0 albuterol sulfate 90 mcg/actuation Aerosol Powdr Breath Activated 1 inh INHALATION QID PRN (Reason: SHORT OF BREATH) RF: 0 Stand-Alone Forms: [facility] Orders: Discharge Order (Routine); Ordered 02/11/19 Ordered By: Ene Hooper Admission Data Admit Date/Time: 02/08/19 20:47 Attending Provider: Ene Hooper Admit Provider: Lizzette Britt Primary Care Provider: Gregory Christy Other Providers: Lizzette Britt ; Alvin Washington Service: Telemetry Other Interventions: Discharge Summary Assessment (RN) Last Done: 02/11/19 15:13
[2019-02-11] MEDS ORDERED: INSULIN GLARGINE SOLOSTAR 100 UNITS/ML 3 ML PEN SC SCH (21:00)
== END 2019-02-11 17:24 | disposition home health service (06) | DRG 189 ==
LOC: ED 16:14 → 2S 20:47 → SUATTDRO 20:47 → 2S 21:22

== ENCOUNTER 2019-03-14 18:18 | Inpatient (IN) ==
[2019-03-14] MEDS ORDERED: methylPREDNISolone 125 MG/2 ML VIAL IV STA (18:39)
[2019-03-14] MEDS ORDERED: ALBUT/IPRATROP 3MG/0.5MG NEB 3 ML VIAL INH STA (18:39)
[2019-03-14] MEDS ORDERED: SODIUM CHLORIDE 0.9% 1000ML 1,000 ML IV SCH (18:45)
[2019-03-14] MEDS: MAGNESIUM SULFATE / D5W 1 GM/100 ML BAG IV SCH ×2 (19:00→19:39)
[2019-03-14 19:05] LABS: Base Excess VBG 7.3 mEq/L; Oxygen Saturation VBG 82.2 %; pH VBG 7.4 (7.36-7.41)
[2019-03-14 19:12] LABS: Basophils # (auto) 0.01 K/uL (0-0.2); Basophils % (auto) 0.1 %; Eosinophils % (auto) 1.7 %; Hematocrit (blood only) 40.8 % (37-47); Hemoglobin 13.8 g/dL (12.0-16.0); Immature Granulocytes # (auto) 0.03 K/uL (0.00-0.02); Immature Granulocytes % (auto) 0.3 %; Lymphocytes # (auto) 1.22 K/uL (1.2-3.4); Lymphocytes % (auto) 10.3 %; Mean Corpuscular Hgb Conc 33.8 g/dL (32-36); Mean Corpuscular Volume 85.2 fL (80-100); Mean Platelet Volume 9.2 fL (7.4-10.4); Monocytes # (auto) 0.86 K/uL (0.11-0.59); Monocytes % (auto) 7.3 %; Neutrophils % (auto) 80.3 %; Platelet Count 137 K/uL (130-400); RDW Coefficient of Variation 13.4 % (11.5-14.5); RDW Standard Deviation 41.3 fL (36.4-46.3); Red Blood Count 4.79 M/uL (4.2-5.4); White Blood Count 11.82 K/uL (4.8-10.8)
[2019-03-14 19:24] LABS: INR 1.1 (0.9-1.1); Partial Thromboplastin Time 27.9 Seconds (21.0-31.0)
[2019-03-14 19:30] LABS: Alanine Aminotransferase 19 U/L (12-78); Albumin Level 3.4 gm/dl (3.4-5.0); Aspartate Aminotransferase 13 U/L (15-37); BUN Creatinine Ratio 13.3 (10-20); Blood Urea Nitrogen 6 mg/dl (7-18); Calcium 10.5 mg/dl (8.5-10.1); Carbon Dioxide 34 mmol/L (21-32); Chloride 99 mmol/L (98-107); Creatinine Clr Calc Pharmacy 127.8 ml/min; Est GFR (African American) 136.3; Est GFR (Non-African American) 117.6; Glucose 230 mg/dl (70-99); Magnesium 1.7 mg/dl (1.8-2.4); Potassium 3.8 mmol/L (3.5-5.1); Sodium 137 mmol/L (136-145)
[2019-03-14 19:35] LABS: Albumin Globulin Ratio 0.8 (0.9-2); Alkaline Phosphatase 118 U/L (45-117); Bilirubin,Total 0.6 mg/dl (0.2-1); Globulin 4.1 gm/dl (2.5-4.0); Total Protein 7.5 gm/dl (6.4-8.2); Troponin I < 0.015 ng/ml (0-0.045)
--- NOTE | 2019-03-14 19:45 | XRay Report ---
XR chest 1V portable CLINICAL HISTORY: 49 years-old Female presenting with Dyspnea. TECHNIQUE: Portable upright AP view of the chest was obtained. COMPARISON: 03/09/2019. FINDINGS: The patient is NAURUAN rotated. Right internal jugular Mediport terminates at the superior cavoatrial anival ction. Cardiomediastinal silhouette normal allowing for rotation. And likely opacity at the left lung base new from prior. No large effusion or pneumothorax. Osseous structures normal. Upper abdomen nor mal. IMPRESSION: 1. Left basilar atelectasis suspected. An infiltrate is possible though considered less likely. Electronically signed by: Stef Lackey M.D. 03/14/2019 7:44 PM
[2019-03-14] MEDS ORDERED: SODIUM CHLORIDE 0.9% 1000ML 1,000 ML IV ONE (19:54)
[2019-03-14] MEDS ORDERED: ACETAMINOPHEN 325 MG TAB PO STA (20:26)
[2019-03-14] MEDS ORDERED: PROCHLORPERAZINE 10 MG in SYRINGE 8 ML IV ONE (20:26)
--- NOTE | 2019-03-14 22:40 | Emergency Department Note ---
Entered by Domi Villar acting as a scribe for Beto Mauricio MD History of Present Illness General Chief complaint: Shortness of Breath/Dyspnea Stated complaint: SOB, TIRED MORE THAN NORMAL Time Seen by Provider: 03/14/19 18:30 Source: patient Mode of arrival: ambulatory Limitations: no limitations History of Present Illness Onset (ago): day(s) 3 Location: chest Pain Consistency: + constant Maximum Pain Intensity: 10 Exacerbated By: + other (coughing) Associated symptoms: + chest pain, + cough (cough with thick yellow phlegm production) and + shortness of breath; no fever/chills (The patient denies fevers. ) The patient is a 49 year old female w/ PMHx of hypertension, hyperlipidemia, heart murmur, diabetes, CVA with no residual deficit, lymphoma, and chronic hypoxia who presents to the ED w/ CC of constant shortness of breath beginning 3 days ago. The patient was admitted to the hospital on 02/08. The patient complains of chest pain and cough with thick yellow phlegm production. She notes that her pain is located way down into her lungs and chest. The patient states that the pain is exacerbated with coughing. The patient denies fever. She notes that her grandson is in daycare and has similar symptoms. The patient is on 3 liters of oxygen via nasal cannula at home. She notes that she is a former smoker and quit 12 years ago. The patient states that she has a non- functioning port. Home Medications Home Medications Medication Instructions Recorded Confirmed Type Basaglar KwikPen U-100 Insulin 3 unit SUBCUT HS 02/03/19 03/14/19 History Novolog U-100 Insulin aspart 10 units SUBCUT QID 02/03/19 03/14/19 History Raw Honey 1 tsp PO DAILY 02/03/19 03/14/19 History Lacto.acidophilus-Bif.animalis 3 cap PO DAILY 03/14/19 03/14/19 History [Probiotic] albuterol sulfate 2.5 mg INHALATION Q6 03/14/19 03/14/19 History budesonide-formoterol [Symbicort] 2 puff INHALATION BID 03/14/19 03/14/19 History clotrimazole 1 peter PO DIRECTED 03/14/19 03/14/19 History cyclosporine [Restasis] 1 drp OPHTHALMIC (EYE) Q12H 03/14/19 03/14/19 History insulin NPH isoph U-100 human 20 units SQ DAILY PRN 03/14/19 03/14/19 History ipratropium bromide 0.5 mg INHALATION Q6H 03/14/19 03/14/19 History Allergies Allergy/AdvReac Type Severity Reaction Status Date / Time cyclobenzaprine Allergy Intermediate HALLUCINATI Verified 03/14/19 19:37 ON lidocaine Allergy Intermediate ITCHING Verified 03/14/19 19:37 AND BURNING ON CONTACT nystatin Allergy Intermediate ITCHING Verified 03/14/19 19:37 AND BURNING cefaclor Allergy Mild SICK TO Verified 03/14/19 19:37 STOMACH morphine Allergy Mild VOMITTING Verified 03/14/19 19:37 Past Med/Surg History Surgical History History of bilateral tubal ligation History of section X 3 History of laparoscopy History of tooth extraction History of vascular access device PORT INSERTION (FOR CHEMO) Ovarian cyst REMOVED Family History Mother Family history of diabetes mellitus Social History Preferred Language: Lithuanian Communication Ability: Effective Beliefs That Will Affect Care: None marital status: Current Living Situation: Alone Feels Safe at Home: Yes Smoking Status: Former smoker Second Hand Exposure: No Hx Alcohol Use: No Hx Substance Use: No Review of Systems See HPI for pertinent positives & negatives. and A total of 10 systems reviewed and were otherwise negative Physical Exam Vital Signs Vital Signs - 24 hr 03/14/19 18:22 03/14/19 18:57 03/14/19 19:08 Temperature 37 C Temperature Source Oral Sepsis Recent Fever Within 48 Hours No Sepsis Action Taken by Nursing No Action Required Pulse Rate 119 H Pulse Rate [Right Finger] 118 H Pulse Rhythm Regular Pulse Rhythm [Right Finger] Pulse Strength Normal Pulse Strength [Right Finger] Respiratory Rate 22 18 Respiratory Effort / Characteristics Non-Labored Spontaneous Non-Labored Spontaneous Spontaneous Accessory Muscle Use Labored Respiratory Depth Normal Normal Respiratory Pattern Regular Regular Blood Pressure 165/88 H Blood Pressure [Left Arm] Blood Pressure Mean 113 Blood Pressure Mean [Left Arm] Blood Pressure Position [Left Arm] Pulse Oximetry 94 94 Oxygen Delivery Method Nasal Cannula Nasal Cannula Nasal Cannula Oxygen Flow Rate 3 4 03/14/19 19:39 03/14/19 20:59 Temperature Temperature Source Sepsis Recent Fever Within 48 Hours Sepsis Action Taken by Nursing Pulse Rate Pulse Rate [Right Finger] 129 H 121 H Pulse Rhythm Pulse Rhythm [Right Finger] Regular Regular Pulse Strength Pulse Strength [Right Finger] Normal Normal Respiratory Rate 26 H 24 Respiratory Effort / Characteristics Non-Labored Spontaneous Non-Labored Spontaneous Accessory Muscle Use Respiratory Depth Normal Normal Respiratory Pattern Regular Regular Blood Pressure Blood Pressure [Left Arm] 168/99 H 144/89 H Blood Pressure Mean Blood Pressure Mean [Left Arm] 122 107 Blood Pressure Position [Left Arm] Sitting Sitting Pulse Oximetry 99 91 Oxygen Delivery Method Nebulizer Nasal Cannula Oxygen Flow Rate 8 4 GENERAL: Wearing glasses, mild distress, mild tachypnea. EYE EXAM: Normal conjunctiva. PERRL, no anisocoria and EOM's grossly intact w/o pain. OROPHARYNX: Moist mucus membranes. Grossly normal dentition. NECK: Supple, no nuchal rigidity, no adenopathy, non-tender. no signs of meningismus. LUNGS: Mild crackles throughout, no obvious wheezes. Mild tachypnea. HEART: Tachycardic and regular. ABDOMEN: Abdomen soft, non-tender, normo-active bowel sounds, no masses, no rebound or guarding. BACK: No CVA TTP. SKIN: No rashes and no bruising. UPPER EXTREMITIES: Upper extremities are grossly normal. LOWER EXTREMITIES: No pitting edema. No calf pain. Negative Rodney's sign. NEURO EXAM: A&O x3, cranial nerves II-XII grossly intact, normal speech, moves all 4 extremities on command w/o issue. Course 1833: Past medical records reviewed. The patient was evaluated in room B3. A complete history and physical examination was performed. 2029: I updated the patient. She is requiring extra oxygen. 2056: I reviewed the patient's case with Dr. Sachin Venegas - [facility]. He will evaluate the patient for further management. Consultations Consultation #1: 2056: I reviewed the patient's case with Dr. Sachin Venegas - [facility]. He will evaluate the patient for further management. Time: 20:57 Administered Medications Discontinued Medications Acetaminophen (Tylenol) 650 mg PO NOW STA Stop: 03/14/19 20:27 Last Admin: 03/14/19 20:40 Dose: 650 mg Documented by: [id number] Albuterol (Duoneb) 12 ml INH ONE STA Stop: 03/14/19 18:40 Last Admin: 03/14/19 18:57 Dose: 12 ml Documented by: [id number] Magnesium Sulfate/Dextrose (Magnesium Sulfate / D5w) 1 gm in 100 mls @ 100 mls/hr IV Q1H TOVA Stop: 03/14/19 20:44 Last Infusion: 03/14/19 21:39 Dose: 0 mls/hr Documented by: [id number] Admin: 03/14/19 19:39 Dose: 100 mls/hr Documented by: [id number] Infusion: 03/14/19 19:39 Dose: 100 mls/hr Documented by: [id number] Admin: 03/14/19 19:00 Dose: 100 mls/hr Documented by: [id number] Sodium Chloride (Nss 1000ml) 1,000 mls @ 999 mls/hr IV .Q1H1M TOVA Stop: 03/14/19 19:45 Last Infusion: 03/14/19 20:00 Dose: 0 mls/hr Documented by: [id number] Admin: 03/14/19 19:00 Dose: 999 mls/hr Documented by: [id number] Sodium Chloride (Nss 1000ml) 1,000 mls @ 999 mls/hr IV .Q1H1M ONE Stop: 03/14/19 20:54 Last Infusion: 03/14/19 21:40 Dose: 0 mls/hr Documented by: [id number] Admin: 03/14/19 20:40 Dose: 999 mls/hr Documented by: [id number] Prochlorperazine 10 mg/ (Syringe) 10 mls @ 5 mls/min IV ONE ONE Stop: 03/14/19 20:27 Last Admin: 03/14/19 21:28 Dose: Not Given Documented by: [id number] Methylprednisolone (Solumedrol) 125 mg IV NOW STA Stop: 03/14/19 18:40 Last Admin: 03/14/19 19:00 Dose: 125 mg Documented by: [id number] Medical Decision Making Medical Records Attestation: I reviewed the patient's medical records. Home Medications Current Medication List: was personally reviewed by me Laboratory Data Attestation: I reviewed the patient's lab results. Result diagrams: 03/14/19 18:52 03/14/19 18:52 Lab Results 03/14/19 03/14/19 03/14/19 Range/Units 18:52 18:52 18:52 WBC 11.82 H (4.8-10.8) K/uL RBC 4.79 (4.2-5.4) M/uL Hgb 13.8 (12.0-16.0) g/dL Hct 40.8 (37-47) % MCV 85.2 (80-100) fL MCH 28.8 (25-34) pg MCHC 33.8 (32-36) g/dL RDW Std Deviation 41.3 (36.4-46.3) fL RDW Coeff of Leopoldo 13.4 (11.5-14.5) % Plt Count 137 (130-400) K/uL MPV 9.2 (7.4-10.4) fL Immature Gran % (Auto) 0.3 % Neut % (Auto) 80.3 % Lymph % (Auto) 10.3 % [place] % (Auto) 7.3 % Eos % (Auto) 1.7 % Baso % (Auto) 0.1 % Immature Gran # (Auto) 0.03 H (0.00-0.02) K/uL Neut # (Auto) 9.50 H (1.4-6.5) K/uL Lymph # (Auto) 1.22 (1.2-3.4) K/uL [place] # (Auto) 0.86 H (0.11-0.59) K/uL Eos # (Auto) 0.20 (0-0.5) K/uL Baso # (Auto) 0.01 (0-0.2) K/uL PT 11.0 (9.0-12.0) Seconds INR 1.1 (0.9-1.1) APTT 27.9 (21.0-31.0) Seconds PTT Ratio 1.0 VBG pH (7.36-7.41) VBG pCO2 (38-50) mmHg VBG pO2 mmHg VBG HCO3 mmol/L VBG O2 Saturation % VBG Base Excess mEq/L Barometric Pressure mm/Hg Sodium 137 (136-145) mmol/L Potassium 3.8 (3.5-5.1) mmol/L Chloride 99 (98-107) mmol/L Carbon Dioxide 34 H (21-32) mmol/L Anion Gap 4.0 (3-11) BUN 6 L (7-18) mg/dl Creatinine 0.47 L (0.6-1.2) mg/dl Est Cr Clr Drug Dosing 127.8 ml/min Est GFR ( Amer) 136.3 Est GFR (Non-Af Amer) 117.6 BUN/Creatinine Ratio 13.3 (10-20) Glucose 230 H (70-99) mg/dl POC Glucose (70-99) Calcium 10.5 H (8.5-10.1) mg/dl Magnesium 1.7 L (1.8-2.4) mg/dl Total Bilirubin 0.6 (0.2-1) mg/dl AST 13 L (15-37) U/L ALT 19 (12-78) U/L Alkaline Phosphatase 118 H (45-117) U/L Troponin I < 0.015 (0-0.045) ng/ml Total Protein 7.5 (6.4-8.2) gm/dl Albumin 3.4 (3.4-5.0) gm/dl Globulin 4.1 H (2.5-4.0) gm/dl Albumin/Globulin Ratio 0.8 L (0.9-2) 03/14/19 03/14/19 Range/Units 18:53 20:38 WBC (4.8-10.8) K/uL RBC (4.2-5.4) M/uL Hgb (12.0-16.0) g/dL Hct (37-47) % MCV (80-100) fL MCH (25-34) pg MCHC (32-36) g/dL RDW Std Deviation (36.4-46.3) fL RDW Coeff of Leopoldo (11.5-14.5) % Plt Count (130-400) K/uL MPV (7.4-10.4) fL Immature Gran % (Auto) % Neut % (Auto) % Lymph % (Auto) % [place] % (Auto) % Eos % (Auto) % Baso % (Auto) % Immature Gran # (Auto) (0.00-0.02) K/uL Neut # (Auto) (1.4-6.5) K/uL Lymph # (Auto) (1.2-3.4) K/uL [place] # (Auto) (0.11-0.59) K/uL Eos # (Auto) (0-0.5) K/uL Baso # (Auto) (0-0.2) K/uL PT (9.0-12.0) Seconds INR (0.9-1.1) APTT (21.0-31.0) Seconds PTT Ratio VBG pH 7.40 (7.36-7.41) VBG pCO2 56 H (38-50) mmHg VBG pO2 45 mmHg VBG HCO3 34 mmol/L VBG O2 Saturation 82.2 % VBG Base Excess 7.3 mEq/L Barometric Pressure 725.7 mm/Hg Sodium (136-145) mmol/L Potassium (3.5-5.1) mmol/L Chloride (98-107) mmol/L Carbon Dioxide (21-32) mmol/L Anion Gap (3-11) BUN (7-18) mg/dl Creatinine (0.6-1.2) mg/dl Est Cr Clr Drug Dosing ml/min Est GFR ( Amer) Est GFR (Non-Af Amer) BUN/Creatinine Ratio (10-20) Glucose (70-99) mg/dl POC Glucose 284 H (70-99) Calcium (8.5-10.1) mg/dl Magnesium (1.8-2.4) mg/dl Total Bilirubin (0.2-1) mg/dl AST (15-37) U/L ALT (12-78) U/L Alkaline Phosphatase (45-117) U/L Troponin I (0-0.045) ng/ml Total Protein (6.4-8.2) gm/dl Albumin (3.4-5.0) gm/dl Globulin (2.5-4.0) gm/dl Albumin/Globulin Ratio (0.9-2) Imaging Data Radiologist's Impression: Radiology results as stated below per my review and the radiologist's interpretation: XR chest 1V portable CLINICAL HISTORY: 49 years-old Female presenting with Dyspnea. TECHNIQUE: Portable upright AP view of the chest was obtained. COMPARISON: 03/09/2019. FINDINGS: The patient is ALANNAH rotated. Right internal jugular Mediport terminates at the superior cavoatrial junction. Cardiomediastinal silhouette normal allowing for rotation. And likely opacity at the left lung base new from prior. No large effusion or pneumothorax. Osseous structures normal. Upper abdomen normal. IMPRESSION: 1. Left basilar atelectasis suspected. An infiltrate is possible though considered less likely. Electronically signed by: Stef Lackey M.D. 03/14/2019 7:44 PM Dictated: 03/14/191941 Transcribed: 03/14/191941 ECG Data Attestation: I personally reviewed and interpreted this ECG as follows: Indication: SOB/dyspnea Rate (beats per minute): 108 Rhythm: sinus tachycardia Findings: + other (normal axis, normal intervals); no acute ischemic change Blood Pressure Blood Pressure Findings: Elevated blood pressure Blood Pressure Disposition: further management by hospitalist MARY Bar The patient is a 49 female w/ PMHx of hypertension, hyperlipidemia, heart murmur, diabetes, CVA with no residual deficit, lymphoma, and chronic hypoxia who presents to the ED w/ CC of constant shortness of breath beginning 3 days ago. Differential diagnoses includes but is not limited to pneumonia, bronchitis, COPD/Asthma exacerbation, pneumothorax, pulmonary embolism, congestive heart failure, acute coronary syndrome Patient was seen and evaluated the bedside. The patient does have a known history of chronic lung disease and does see Dr. [place]. The patient did have a recent course of antibiotics and subsequently had some changes to her steroids and nebs. The patient was trialed on an hour-long DuoNeb steroids as well as mag and IV fluids. Patient likely does have increased extra sensory losses given the patient's shortness of breath and increased tachypnea. Patient has a fairly normal pH with regards to gas has chronic CO2 retention which is indicative of the patient's elevated bicarb. The patient's blood glucose is elevated but the patient does not have an anion gap. Patient is not in DKA. Troponin is not detectable. Patient's EKG does not show any acute ischemic change. I believe this is likely related the patient's chronic lung disease. The patient upon reassessment has not shown significant improvement. The patient is also requiring slightly more oxygen than before. The patient was complaining some mild headache. Patient does not have any numbness tingling or weakness. Patient was given additional medications for her headache and I did speak with the on-call hospitalist who agreed for further evaluate treat the patient. Patient was admitted to the medicine service. Impression & Plan Acute on chronic respiratory failure Discharge Plan Visit Data Chief Complaint: Shortness of Breath/Dyspnea Stated Complaint: SOB, TIRED MORE THAN NORMAL ED Provider: Beto Mauricio Discharge Problem: Acute on chronic respiratory failure Patient Disposition: Being Evaluated by Hospitalist Forms Stand Alone Forms: My [facility] Prescriptions Prescriptions: No Action Novolog U-100 Insulin aspart 100 unit/mL Solution 10 units SUBCUT QID RF: 0 Basaglar KwikPen U-100 Insulin 100 unit/mL (3 mL) Insulin Pen 3 unit SUBCUT HS RF: 0 Raw Honey 1 tsp PO DAILY RF: 0 clotrimazole 10 mg Dayday 1 peter PO DIRECTED RF: 0 albuterol sulfate 2.5 mg /3 mL (0.083 %) Solution For Nebulization 2.5 mg INHALATION Q6 RF: 0 ipratropium bromide 0.02 % Solution 0.5 mg INHALATION Q6H RF: 0 Restasis 0.05 % Dropperette 1 drp OPHTHALMIC (EYE) Q12H RF: 0 Symbicort 160-4.5 mcg/actuation Hfa Aerosol Inhaler 2 puff INHALATION BID RF: 0 Probiotic 5 billion cell Capsule, Sprinkle 3 cap PO DAILY RF: 0 insulin NPH isoph U-100 human 100 unit/mL (3 mL) insulin pen 20 units SQ DAILY PRN (Reason: WHEN TAKES PREDNISONE) RF: 0 Referrals Referrals: Gregory Christy [Primary Care Provider] - Discharge Problem: Acute on chronic respiratory failure Qualifiers: Respiratory failure complication: hypoxia Qualified Code(s): J96.21 - Acute and chronic respiratory failure with hypoxia The scribe's documentation has been prepared under my direction and personally reviewed by me in its entirety. I confirm that the note above accurately reflects all work, treatment, procedures, and medical decision making performed by me.
[2019-03-15] MEDS ORDERED: INSULIN ASPART 100 UNITS/ML 3 ML PEN SC ONE (00:16)
--- NOTE | 2019-03-15 00:34 | History & Physical Report ---
Date of Service March 15, 2019 Assessment & Plan (1) Cough: 49-year-old female was admitted on 15 Mar 2019 for cough and shortness of breath. Cough, shortness of breath: Productive over the past five days. Subjective fever only day prior to admit. Says her chest only hurts due to the cough but denies exertional SOB. Patient was admitted for similar symptoms from February 08- . Seen by pulmonology at that time, diagnosed with moderate to severe COPD. May also have some side effects from prior Rituxan use. At home is on Symbicort, albuterol, and ipratropium. Patient says she completed a 10-day course of Augmentin the day of return of her cough. - On arrival, afebrile, regular tachycardia, tachypnea, elevated blood pressure. 94% on 3 L nasal cannula (her home baseline). WBC 11. VBG with pH 7.4, pCO2 56, bicarb 34. Chest x-ray read as left basilar atelectasis, less likely infi ltrate. Troponin negative. EKG is sinus tachycardia, rate 108, without ST elevations/depressions. [id number] TTE noted normal LV size, EF greater than 70%. - In ED, was treated with 2 L normal saline, Tylenol, Solu-Medrol 125 mg, albuterol neb. Mag as below. - We will continue with prednisone 40 mg daily. Duo nebs every 6 hours and as needed. Consult pulmonology. Presently does not appear to have an active infectious process, though it does seem she has significant mold exposure at home. - Will also check a d-dimer given persistent tachycardia after IVF (though did get an albuterol neb). Hypomagnesemia: Admit mag 1.7. Given 2 grams magnesium in ED. Will recheck in a.m. Ongoing medical history: - Hypertension, hyperlipidemia: Does not appear she is on anything at home for this. - Diabetes type 2: HbA1c 7.5 in January 2019. Continue home insulin. Will add sliding scale insulin here. - CVA: No known chronic deficit. - Follicular non-hodgkins lymphoma May 2017: Followed by Dr. Ayala. Previously treated with Rituxan. Right IJ Mediport is non-functional. Code status: Full code. Diet: Heart healthy, DM2. DVT prophy: Lovenox. PT/OT: Deferred. Disbo: Admit to [facility]. (2) Shortness of breath: (3) COPD (chronic obstructive pulmonary disease): (4) Hypomagnesemia: (5) Hypertension: (6) Hyperlipidemia: (7) Diabetes mellitus, type II: (8) Lymphoma: History of Present Illness Primary Care Provider: Gregory Christy 49-year-old female presents to the emergency department complaining of cough and shortness of breath beginning five days ago (). - Of note, she was an inpatient from February 08- for similar symptoms. She was seen by pulmonology, thought to have a COPD exacerbation, and treated accordingly. Patient says in the interim between then and now she was followed up in the pulmonology clinic. She says that she was told that she was "too sick" to get PFTs there. She says the exact cause of her ongoing shortness of breath is unclear. She was previously on Rituxan for her lymphoma. She also says she was placed on a 10-day course of Augmentin which she completed on , the same day her current symptoms resumed. - Patient says this cough is been productive of some yellow phlegm. No noted hemoptysis. She says that all of the coughing causes her to have some chest discomfort (denies outright chest pain), aches in her back, and a mild headache. She thinks she may have had a subjective fever only this morning. She denies nausea/vomiting, abdominal pain, or extremity edema. Says she has been using her inhalers regularly. She is on 3 L nasal cannula oxygen 24/7 at home. She also says she has home health that comes to her house. --- Past medical history includes COPD, chronic hypoxia, hypertension, hyperlipidemia, type 2 diabetes, CVA, lymphoma. --- Past surgical history includes x3, right axillary lymph node biopsy, right Mediport placement (which she says does not function anymore), bone marrow biopsy. --- Social history includes having quit smoking about 2006 but prior 10 to 20 years of smoking 1 to 2 packs/day. Denies alcohol use. Lives at home alone. Allergies Allergy/AdvReac Type Severity Reaction Status Date / Time cyclobenzaprine Allergy Intermediate HALLUCINATI Verified 03/14/19 19:37 ON lidocaine Allergy Intermediate ITCHING Verified 03/14/19 19:37 AND BURNING ON CONTACT nystatin Allergy Intermediate ITCHING Verified 03/14/19 19:37 AND BURNING cefaclor Allergy Mild SICK TO Verified 03/14/19 19:37 STOMACH morphine Allergy Mild VOMITTING Verified 03/14/19 19:37 Home Medications Home Medications Medication Instructions Recorded Confirmed Type Basaglar KwikPen U-100 Insulin 3 unit SUBCUT HS 02/03/19 03/14/19 History Novolog U-100 Insulin aspart 10 units SUBCUT QID 02/03/19 03/14/19 History Raw Honey 1 tsp PO DAILY 02/03/19 03/14/19 History Lacto.acidophilus-Bif.animalis 3 cap PO DAILY 03/14/19 03/14/19 History [Probiotic] albuterol sulfate 2.5 mg INHALATION Q6 03/14/19 03/14/19 History budesonide-formoterol [Symbicort] 2 puff INHALATION BID 03/14/19 03/14/19 History clotrimazole 1 peter PO DIRECTED 03/14/19 03/14/19 History cyclosporine [Restasis] 1 drp OPHTHALMIC (EYE) Q12H 03/14/19 03/14/19 History insulin NPH isoph U-100 human 20 units SQ DAILY PRN 03/14/19 03/14/19 History ipratropium bromide 0.5 mg INHALATION Q6H 03/14/19 03/14/19 History Past Med/Surg History Medical History Acute on chronic respiratory failure with hypoxia and hypercapnia (Acute) Hyperlipidemia Hypertension Acute respiratory failure with hypoxia and hypercarbia Encounter for pre-operative examination Lymphoma (Chronic) Diabetes (Chronic) Diabetes mellitus, type II Dyspnea History of tobacco abuse Hypoxia Tachycardia Anxiety HX OF Cardiac murmur Diabetes mellitus type 1 Dry eye Hyperlipidemia HX OF Hypertension Low oxygen saturation WEARS O2 AT 2L HS (CAUSED BY CHEMO [place]) Lymphoma On home oxygen therapy 2L AT HS Osteoarthritis Stroke AT AGE 43 "STRESS RELATED" Surgical History History of bilateral tubal ligation History of section X 3 History of laparoscopy History of tooth extraction History of vascular access device PORT INSERTION (FOR CHEMO) Ovarian cyst REMOVED Family History Mother Family history of diabetes mellitus Social History Preferred Language: Cymro Communication Ability: Effective Sleeve Ironer Required: No Beliefs That Will Affect Care: None marital status: Current Living Situation: Alone Feels Safe at Home: Yes Safety Concerns: Feels Safe At This Time Smoking Status: Former smoker Second Hand Exposure: No Hx Alcohol Use: No Hx Substance Use: No Review of Systems Review of Systems: Constitutional: Subjective fever today. Denies focal weakness. Eyes: Denies any visual loss or diplopia ENT: Denies any ear/nose/throat pain or difficulty speaking or swallowing Respiratory: Positive cough and shortness of breath. Denies hemoptysis. Cardiovascular: Denies any exertional chest pain or feeling of edema Gastrointestinal: Denies any abdominal pain, nausea/vomiting/diarrhea Musculoskeletal: Denies any acute extremity pains, myalgias, or focal weakness Skin: Denies any known acute rashes or lesions Neuro: Denies acute focal weakness or numbness, or difficulties with speech or swallow. Physical Exam Physical Exam: GENERAL: Awake, alert, speaking easily in full sentences, has an ongoing cough, and does not appear in distress (respiratory or otherwise). HENT: Normocephalic, atraumatic. Oropharynx unremarkable. EYES: Normal conjunctiva. Sclera non-icteric. NECK: Inspection normal. Supple and full ROM. No nuchal rigidity. CARDIAC: +S1S2 regular tachycardia, no murmurs. Right upper chest Mediport in place. RESPIRATORY: Diminished air movement throughout all lung berrios. No appreciable wheezes or rales. No accessory muscle use. Presently on 3 L nasal cannula oxygen. GI: +BS, soft, non-distended. No tenderness to palpation. No rebound or guarding. EXTREMITIES: No pedal edema or calf tenderness. Moving all extremities naturally and easily. NEURO: No gross neuro deficits. Results & Data Vital Signs (Past 12 Hours) Vital Signs Temp Pulse Pulse Resp BP BP Pulse Ox 03/14/19 23:21 107 H 18 115/75 94 03/14/19 20:59 121 H 24 144/89 H 91 03/14/19 19:39 129 H 26 H 168/99 H 99 03/14/19 18:57 118 H 18 94 03/14/19 18:22 37 C 119 H 22 165/88 H 94 Laboratory Results 03/14/19 03/14/19 03/14/19 Range/Units 20:38 18:53 18:52 WBC (4.8-10.8) K/uL RBC (4.2-5.4) M/uL Hgb (12.0-16.0) g/dL Hct (37-47) % MCV (80-100) fL MCH (25-34) pg MCHC (32-36) g/dL RDW Std Deviation (36.4-46.3) fL RDW Coeff of Leopoldo (11.5-14.5) % Plt Count (130-400) K/uL MPV (7.4-10.4) fL Immature Gran % (Auto) % Neut % (Auto) % Lymph % (Auto) % [place] % (Auto) % Eos % (Auto) % Baso % (Auto) % Immature Gran # (Auto) (0.00-0.02) K/uL Neut # (Auto) (1.4-6.5) K/uL Lymph # (Auto) (1.2-3.4) K/uL [place] # (Auto) (0.11-0.59) K/uL Eos # (Auto) (0-0.5) K/uL Baso # (Auto) (0-0.2) K/uL PT (9.0-12.0) Seconds INR (0.9-1.1) APTT (21.0-31.0) Seconds PTT Ratio VBG pH 7.40 (7.36-7.41) VBG pCO2 56 H (38-50) mmHg VBG pO2 45 mmHg VBG HCO3 34 mmol/L VBG O2 Saturation 82.2 % VBG Base Excess 7.3 mEq/L Barometric Pressure 725.7 mm/Hg Sodium 137 (136-145) mmol/L Potassium 3.8 (3.5-5.1) mmol/L Chloride 99 (98-107) mmol/L Carbon Dioxide 34 H (21-32) mmol/L Anion Gap 4.0 (3-11) BUN 6 L (7-18) mg/dl Creatinine 0.47 L (0.6-1.2) mg/dl Est Cr Clr Drug Dosing 127.8 ml/min Est GFR ( Amer) 136.3 Est GFR (Non-Af Amer) 117.6 BUN/Creatinine Ratio 13.3 (10-20) Glucose 230 H (70-99) mg/dl POC Glucose 284 H (70-99) Calcium 10.5 H (8.5-10.1) mg/dl Magnesium 1.7 L (1.8-2.4) mg/dl Total Bilirubin 0.6 (0.2-1) mg/dl AST 13 L (15-37) U/L ALT 19 (12-78) U/L Alkaline Phosphatase 118 H (45-117) U/L Troponin I < 0.015 (0-0.045) ng/ml Total Protein 7.5 (6.4-8.2) gm/dl Albumin 3.4 (3.4-5.0) gm/dl Globulin 4.1 H (2.5-4.0) gm/dl Albumin/Globulin Ratio 0.8 L (0.9-2) 03/14/19 03/14/19 Range/Units 18:52 18:52 WBC 11.82 H (4.8-10.8) K/uL RBC 4.79 (4.2-5.4) M/uL Hgb 13.8 (12.0-16.0) g/dL Hct 40.8 (37-47) % MCV 85.2 (80-100) fL MCH 28.8 (25-34) pg MCHC 33.8 (32-36) g/dL RDW Std Deviation 41.3 (36.4-46.3) fL RDW Coeff of Leopoldo 13.4 (11.5-14.5) % Plt Count 137 (130-400) K/uL MPV 9.2 (7.4-10.4) fL Immature Gran % (Auto) 0.3 % Neut % (Auto) 80.3 % Lymph % (Auto) 10.3 % [place] % (Auto) 7.3 % Eos % (Auto) 1.7 % Baso % (Auto) 0.1 % Immature Gran # (Auto) 0.03 H (0.00-0.02) K/uL Neut # (Auto) 9.50 H (1.4-6.5) K/uL Lymph # (Auto) 1.22 (1.2-3.4) K/uL [place] # (Auto) 0.86 H (0.11-0.59) K/uL Eos # (Auto) 0.20 (0-0.5) K/uL Baso # (Auto) 0.01 (0-0.2) K/uL PT 11.0 (9.0-12.0) Seconds INR 1.1 (0.9-1.1) APTT 27.9 (21.0-31.0) Seconds PTT Ratio 1.0 VBG pH (7.36-7.41) VBG pCO2 (38-50) mmHg VBG pO2 mmHg VBG HCO3 mmol/L VBG O2 Saturation % VBG Base Excess mEq/L Barometric Pressure mm/Hg Sodium (136-145) mmol/L Potassium (3.5-5.1) mmol/L Chloride (98-107) mmol/L Carbon Dioxide (21-32) mmol/L Anion Gap (3-11) BUN (7-18) mg/dl Creatinine (0.6-1.2) mg/dl Est Cr Clr Drug Dosing ml/min Est GFR ( Amer) Est GFR (Non-Af Amer) BUN/Creatinine Ratio (10-20) Glucose (70-99) mg/dl POC Glucose (70-99) Calcium (8.5-10.1) mg/dl Magnesium (1.8-2.4) mg/dl Total Bilirubin (0.2-1) mg/dl AST (15-37) U/L ALT (12-78) U/L Alkaline Phosphatase (45-117) U/L Troponin I (0-0.045) ng/ml Total Protein (6.4-8.2) gm/dl Albumin (3.4-5.0) gm/dl Globulin (2.5-4.0) gm/dl Albumin/Globulin Ratio (0.9-2) Medications Administered Discontinued Medications Acetaminophen (Tylenol) 650 mg PO NOW STA Stop: 03/14/19 20:27 Last Admin: 03/14/19 20:40 Dose: 650 mg Documented by: [id number] Albuterol (Duoneb) 12 ml INH ONE STA Stop: 03/14/19 18:40 Last Admin: 03/14/19 18:57 Dose: 12 ml Documented by: [id number] Magnesium Sulfate/Dextrose (Magnesium Sulfate / D5w) 1 gm in 100 mls @ 100 mls/hr IV Q1H TOVA Stop: 03/14/19 20:44 Last Infusion: 03/14/19 21:39 Dose: 0 mls/hr Documented by: [id number] Admin: 03/14/19 19:39 Dose: 100 mls/hr Documented by: [id number] Infusion: 03/14/19 19:39 Dose: 100 mls/hr Documented by: [id number] Admin: 03/14/19 19:00 Dose: 100 mls/hr Documented by: [id number] Sodium Chloride (Nss 1000ml) 1,000 mls @ 999 mls/hr IV .Q1H1M TOVA Stop: 03/14/19 19:45 Last Infusion: 03/14/19 20:00 Dose: 0 mls/hr Documented by: [id number] Admin: 03/14/19 19:00 Dose: 999 mls/hr Documented by: [id number] Sodium Chloride (Nss 1000ml) 1,000 mls @ 999 mls/hr IV .Q1H1M ONE Stop: 03/14/19 20:54 Last Infusion: 03/14/19 21:40 Dose: 0 mls/hr Documented by: [id number] Admin: 03/14/19 20:40 Dose: 999 mls/hr Documented by: [id number] Prochlorperazine 10 mg/ (Syringe) 10 mls @ 5 mls/min IV ONE ONE Stop: 03/14/19 20:27 Last Admin: 03/14/19 21:28 Dose: Not Given Documented by: [id number] Methylprednisolone (Solumedrol) 125 mg IV NOW STA Stop: 03/14/19 18:40 Last Admin: 03/14/19 19:00 Dose: 125 mg Documented by: [id number] Code Status & VTE Plan Code Status Full code VTE Prophylaxis Plan VTE Prophylaxis will be ordered: Yes Supervising Physician Co-Signing Physician Notes Attending addendum: I have physically seen this patient, have supervised the medical residents activities, and agree with the H&P unless as otherwise noted. Assessment and Plan: COPD exacerbation/superimposed bronchitis- Continuing on prednisone 40 mg p.o. daily, after receiving Solu-Medrol 125 mg IV in ED and albuterol nebulizer. DuoNebs as needed. Guaifenesin extended release. Patient describes cleaning off of her [place] at home with sounds like mold, which continues to recur. If not the source, may be an aggravating factor for symptoms. Consulting pulmonology. Remainder of orders notations as noted. Resident Activity Tracking Resident Involvement: Resident Care Provided Care Provided: Adult Hospital Medicine (1) Hyperlipidemia Hyperlipidemia type: unspecified Qualified Code(s): E78.5 - Hyperlipidemia, unspecified (2) Lymphoma Follicular lymphoma type: unspecified follicular type Lymphoma site: unspecified region Lymphoma type: non-Hodgkin Non-Hodgkin lymphoma type: follicular Qualified Code(s): C82.90 - Follicular lymphoma, unspecified, unspecified site (3) Hypertension Hypertension type: essential hypertension Qualified Code(s): I10 - Essential (primary) hypertension
[2019-03-15 01:04] LABS: D Dimer 220 ug/L FEU (0-500)
[2019-03-15] MEDS ORDERED: GLUCOSE 40% GEL 15 GM TUBE PO PRN (01:13)
[2019-03-15] MEDS ORDERED: GLUCOSE 10 TABS/TUBE PO PRN (01:13)
[2019-03-15] MEDS ORDERED: ALBUTEROL 0.083% NEBU SOLN 3 ML VIAL NEB PRN (01:13)
[2019-03-15] MEDS ORDERED: CARBOHYDRATES FOR HYPOGLYCEMIA PO PRN (01:13)
[2019-03-15] MEDS ORDERED: GLUCAGON FOR INJ 1 MG VIAL SQ PRN (01:13)
[2019-03-15] MEDS ORDERED: ONDANSETRON INJ 2 MG/ML 2 ML VIAL IV PRN (01:13)
[2019-03-15] MEDS ORDERED: DEXTROSE 50% 50 ML SYRINGE IV PRN (01:13)
[2019-03-15] MEDS ORDERED: ALBUT/IPRATROP 3MG/0.5MG NEB 3 ML VIAL NEB SCH (01:13)
[2019-03-15] MEDS ORDERED: INSULIN HUMAN NPH SQ PRN (01:13)
[2019-03-15] MEDS ORDERED: COUGH DROP (SUGAR FREE) LOZ 24 LOZ/1 BOX BUCCAL PRN (02:03)
[2019-03-15] MEDS: INSULIN ASPART 100 UNITS/ML 3 ML PEN SQ SCH ×2 (02:25→08:47)
[2019-03-15] MEDS: GUAIFENESIN/CODEINE 200MG/20MG 10ML UDC PO PRN ×3 (03:51→21:37)
[2019-03-15 07:00] LABS: Calcium 10.4 mg/dl (8.5-10.1); Creatinine Clr Calc Pharmacy 113.3 ml/min; Est GFR (Non-African American) 113.1; Magnesium 2.3 mg/dl (1.8-2.4); Potassium 4.2 mmol/L (3.5-5.1)
[2019-03-15] MEDS: ALBUT/IPRATROP 3MG/0.5MG NEB 3 ML VIAL NEB SCH ×3 (07:58→19:16)
[2019-03-15] MEDS: LACTOBACILLUS ACIDOPHILUS (FLORANEX) TAB PO SCH (08:18)
[2019-03-15] MEDS ORDERED: ACETAMINOPHEN 325 MG TAB ONE (08:43)
[2019-03-15] MEDS: ENOXAPARIN INJ 40 MG/0.4 ML SYR SQ SCH (08:45)
[2019-03-15] MEDS: RESTASIS~ORDER AWAITING ACTION SCH ×2 (08:46→16:53)
[2019-03-15] MEDS: INSULIN ASPART 100 UNITS/ML 3 ML PEN SC SCH ×4 (08:47→21:32)
[2019-03-15] MEDS ORDERED: INSULIN ASPART SQ SCH (09:00)
[2019-03-15] MEDS ORDERED: PHARMACY GLYCEMIC MGMT CONSULT PRN (12:06)
--- NOTE | 2019-03-15 12:31 | History & Physical Bridge Note ---
Date of Service March 15, 2019 History & Physical Bridge Note Feeling better. Concerned about black mold in her apartment. Discussed with LISA.
--- NOTE | 2019-03-15 12:50 | Pulmonary Consultation ---
Date of Consultation March 15, 2019 Assessment & Plan (1) COPD (chronic obstructive pulmonary disease): Impression: 1. COPD with exacerbation, gold level 3, grade C with frequent readmission. 2. 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 3. Diabetes with difficult to control glucose due to steroids on board. 4. History of lymphoma, non-Hodgkin's type, status post chemotherapy and Rituxan treatment that completed in September 2018. Plan: 1. Continue prednisone 40 mg p.o. daily, do not taper, I will taper by 10 mg every week rather than quick taper, the findings on the CAT scan are in support of chronic disease such as poorly controlled asthma, hypersensitivity pneumonitis, bronchiolitis obliterans. 2. Obtain a copy of the pulmonary function test done in the office, according to the notes, the patient did have it but the patient denies having it as well. 3. Continue current bronchodilators including Symbicort, use DuoNeb or MDI as needed only. 4. No evidence of infectious process at this point. 5. She is colonized with Acinetobacter, no treatment is required for it. 6. Exposure to Aspergillus fumigatus was noted, I will obtain galactomannan level, if it is positive, the patient should be treated with itraconazole as well. This patient is likely will require steroids frequently. 7. Rituxan induced interstitial lung disease cannot be excluded. Thank you, will follow. History of Present Illness Reason for Consultation: COPD Requesting Physician: Dr. Mir Attending Physician: Goyo Mir MD History of Present Illness Dear Dr. Mir: Thank you for the kind referral of Mrs. Salguero to pulmonary service. This is 49-year-old female with a history of lymphoma treated with CHOP and maintained on Rituxan up until September 2018. The patient has been experiencing symptoms of increasing shortness of breath accompanied with persistent cough. She was seen in the pulmonary clinic 4 times since the beginning of the year where she was treated with prednisone taper. When she is on a prednisone she feels better off prednisone she become more symptomatic. Recently she is been having cough with sputum production. Greenish and yellowish in color. She denies any chest pain itself, no nausea or vomiting. On her last visit to the pulmonary office she was changed to Symbicort from [facility], and continue to use DuoNeb 4 times daily. Her exercise capacity is good and she uses oxygen at 2 L. According to the patient, she was unable to perform pulmonary function test in the past. She denies increased swelling in her lower extremities, no abdominal pain, no nausea or vomiting, no hematemesis or hemoptysis. The rest of her review of system otherwise was unremarkable. Allergies Allergy/AdvReac Type Severity Reaction Status Date / Time cyclobenzaprine Allergy Intermediate HALLUCINATI Verified 03/14/19 19:37 ON lidocaine Allergy Intermediate ITCHING Verified 03/14/19 19:37 AND BURNING ON CONTACT nystatin Allergy Intermediate ITCHING Verified 03/14/19 19:37 AND BURNING cefaclor Allergy Mild SICK TO Verified 03/14/19 19:37 STOMACH morphine Allergy Mild VOMITTING Verified 03/14/19 19:37 Home Medications Home Medications Medication Instructions Recorded Confirmed Type Basaglar KwikPen U-100 Insulin 3 unit SUBCUT HS 02/03/19 03/14/19 History Novolog U-100 Insulin aspart 10 units SUBCUT QID 02/03/19 03/14/19 History Raw Honey 1 tsp PO DAILY 02/03/19 03/14/19 History Lacto.acidophilus-Bif.animalis 3 cap PO DAILY 03/14/19 03/14/19 History [Probiotic] albuterol sulfate 2.5 mg INHALATION Q6 03/14/19 03/14/19 History budesonide-formoterol [Symbicort] 2 puff INHALATION BID 03/14/19 03/14/19 History clotrimazole 1 peter PO DIRECTED 03/14/19 03/14/19 History cyclosporine [Restasis] 1 drp OPHTHALMIC (EYE) Q12H 03/14/19 03/14/19 History insulin NPH isoph U-100 human 20 units SQ DAILY PRN 03/14/19 03/14/19 History ipratropium bromide 0.5 mg INHALATION Q6H 03/14/19 03/14/19 History Patient History Medical History Acute on chronic respiratory failure with hypoxia and hypercapnia (Acute) Hyperlipidemia Hypertension Acute respiratory failure with hypoxia and hypercarbia Encounter for pre-operative examination Lymphoma (Chronic) Diabetes (Chronic) Diabetes mellitus, type II Dyspnea History of tobacco abuse Hypoxia Tachycardia Anxiety HX OF Cardiac murmur Diabetes mellitus type 1 Dry eye Hyperlipidemia HX OF Hypertension Low oxygen saturation WEARS O2 AT 2L HS (CAUSED BY CHEMO TX) Lymphoma On home oxygen therapy 2L AT HS Osteoarthritis Stroke AT AGE 43 "STRESS RELATED" Surgical History History of bilateral tubal ligation History of section X 3 History of laparoscopy History of tooth extraction History of vascular access device PORT INSERTION (FOR CHEMO) Ovarian cyst REMOVED Family History Mother Family history of diabetes mellitus Social History Preferred Language: Maltese Communication Ability: Effective Jewel Sorter Required: No Beliefs That Will Affect Care: None marital status: Current Living Situation: Alone Feels Safe at Home: Yes Safety Concerns: Feels Safe At This Time Smoking Status: Former smoker Second Hand Exposure: No Hx Alcohol Use: No Hx Substance Use: No Review of Systems Review of Systems: Review of systems including 14 systems were unremarkable. Except for above. Physical Exam Physical Exam: Vital signs are stable, S1-S2, no lymphadenopathy in the neck area, lungs with scattered rhonchi, abdomen is benign, no edema, neurologically she is intact. No visual changes, no rash and no mucosal changes. Results & Data Vital Signs (Past 12 Hours) Vital Signs Temp Pulse Pulse Resp BP BP Pulse Ox 03/15/19 08:18 36.5 C 80 16 132/75 95 03/15/19 07:58 103 H 18 91 03/15/19 02:06 92 H 20 94 03/15/19 01:12 36.4 C L 96 H 16 129/78 94 03/15/19 01:08 102 H 18 159/87 H 94 Laboratory Results Labs were reviewed which showed elevated bicarb and CO2 consistent with air- trapping, mild leukocytosis secondary to steroids. Diagnostic Findings I have reviewed her CAT scan which showed left hilar lymphadenopathy, lung parenchyma with mosaic pattern, this could be related to inhalation of organic dust. Asthma with air trapping cannot be ruled out.
[2019-03-15] MEDS ORDERED: INSULIN ASPART 100 UNITS/ML 3 ML PEN SC SCH (15:00)
--- NOTE | 2019-03-15 15:33 | Pharmacy Report ---
Glycemic Control Consultation - Date of Service March 15, 2019 - Scope Scope: Glycemic Pharmacist consulted by Dr Gina Mir on 03/15/19 for glycemic control and to write orders per [facility] inpatient glycemic control protocol - Objective Weight: 60.5 kg Accuchecks BSG (last 24hrs): 03/14/19 03/14/19 03/15/19 18:52 20:38 00:34 Glucose 230 H POC Glucose 284 H 456 H* 03/15/19 03/15/19 03/15/19 00:35 01:04 01:57 Glucose POC Glucose 440 H* 506 H* 438 H* 03/15/19 03/15/19 03/15/19 05:51 05:55 08:01 Glucose 281 H POC Glucose 279 H 253 H 03/15/19 03/15/19 11:53 14:31 Glucose POC Glucose 265 H 193 H Laboratory Data (last 24hrs): 03/14/19 03/15/19 18:52 05:55 Potassium 3.8 4.2 Carbon Dioxide 34 H 33 H Anion Gap 4.0 3.0 Creatinine 0.47 L 0.53 L Est Cr Clr Drug Dosing 127.8 113.3 HbA1c: Laboratory Tests 02/10/19 06:51 Hemoglobin A1c 7.5 H - Recent Pertinent Medications Outpatient Anti-diabetic Regimen: * Insulin Glargine {basaglar} 3 units SQ HS * NovoLog 10 units SQ ACHS with meals/snacks * NovoLog per correctional scale, 1-2 units administered 2 hrs after a meal if BSG > 150mg/dl Risk Factors for Insulin Resistance: * Steroids: Solumedrol 125mg IV x 1 in ED, Prednisone 40mg PO daily @ 1900 * Infection * Diet: CHO heavy - Assessment & Plan Assessment & Plan: ASSESSMENT: * 49yo diabetic with adequate outpatient control per recent A1c * Pt is very CHO sensitive- needs a tight carb ratio and diet is very carb heavy * Pt only requires 3 units of basal insulin as an outpatient which yields appropriate AM fasting BSGs. Pt tests her BSG first thing in the morning (they range 100-150mg/dl) and she tests before meals/snacks and sometimes 2 hrs after meals if her pre-meal BSG is elevated. * Pt was given a dose of Solumedrol 125mg IV x 1 in ED last evening - no extra insulin given which caused steroid induced hyperglycemia. * Pt stated that she uses 20 additional units of insulin (NPH) while on once daily prednisone. * Currently, Pt insulin Rx = basal insulin {Lantus}, bolus insulin {NovoLog}, and steroid hyperglycemia insulin {NPH} * NPH insulin is used to counteract the hyperglycemic effect of prednisone. The rationale for this approach is that the pharmacodynamics profile of NPH, with a peak effect of 4-8hrs and duration of action of 12-16hrs, mirrors the pharmacodynamics of prednisone. NPH should be dosed at the same time that prednisone is given * The dose of NPH given is dependent on the steroid dose given * For doses of prednisone 40mg/day or above NPH dose should be 0.4 units/kg. This is similar to outpatient Rx of NPH 20 units * NPH dosing above is given in addition to patients basal insulin needs * Typically, patients will also need rapid-acting insulin with meals * Will continue to titrate insulin dosing with each step down in steroid dosing PLAN FOR INPATIENT GLYCEMIC CONTROL: * Basal insulin * Lantus 3 units SQ HS {this is outpatient dosing) * Bolus insulin: stop fixed dosing (10 units with meals) and change to order per CF/CR * NovoLog per scale ACHS or Q6hrs while NPO * Goal Range: Low 100 mg/dL - High 140 mg/dL * Correction Factor: 30 mg/dL/unit * Nutritional / Prandial insulin per carb ratio of 1 unit per 6 grams CHO consumed * Steroid induced hyperglycemia * NPH 20 units SQ Q24hrs - dose to be given at the same time as Prednisone 40mg which is timed for daily @ 1900 * Please note that the plan above was derived based on current level of insulin resistance and hospital stress. These recommendations are appropriate for inpatient admission only. Plan of care upon discharge will need to be reassessed to avoid potential outpatient hypo/hyperglycemia. Thank you.
[2019-03-15] MEDS ORDERED: INSULIN HUMAN NPH SQ SCH (19:00)
[2019-03-15] MEDS: predniSONE 20 MG TAB PO SCH (19:20)
[2019-03-15] MEDS: ACETAMINOPHEN 325 MG TAB PO PRN (19:21)
[2019-03-15] MEDS ORDERED: INSULIN GLARGINE SOLOSTAR 100 UNITS/ML 3 ML PEN SQ SCH (21:00)
[2019-03-15] MEDS: PANTOprazole 40 MG TAB PO SCH (21:34)
[2019-03-16] MEDS: RESTASIS~ORDER AWAITING ACTION SCH ×3 (00:38→15:09)
[2019-03-16] MEDS: ALBUT/IPRATROP 3MG/0.5MG NEB 3 ML VIAL NEB SCH ×3 (01:40→14:24)
[2019-03-16] MEDS: ACETAMINOPHEN 325 MG TAB PO PRN ×2 (08:04→18:08)
[2019-03-16] MEDS: GUAIFENESIN/CODEINE 200MG/20MG 10ML UDC PO PRN (08:04)
[2019-03-16] MEDS: LACTOBACILLUS ACIDOPHILUS (FLORANEX) TAB PO SCH (08:06)
[2019-03-16] MEDS: ENOXAPARIN INJ 40 MG/0.4 ML SYR SQ SCH (08:07)
[2019-03-16] MEDS: PANTOprazole 40 MG TAB PO SCH (08:08)
[2019-03-16] MEDS: INSULIN ASPART 100 UNITS/ML 3 ML PEN SC SCH ×3 (08:53→17:36)
[2019-03-16] MEDS ORDERED: ITRACONAZOLE 100 MG CAPSULE PO SCH (12:15)
--- NOTE | 2019-03-16 13:12 | Pharmacy Report ---
Pharmacy Glycemic Short Note 2 - Date of Service March 16, 2019 - Glycemic Short BSG Results (Last 24 hours): 03/15/19 03/15/19 03/15/19 14:31 16:33 20:06 POC Glucose 193 H 173 H 271 H 03/16/19 03/16/19 08:00 11:46 POC Glucose 253 H 71 OUTPATIENT ANTIDIABETIC REGIMEN: * Insulin Glargine {basaglar} 3 units SQ HS * NovoLog 10 units SQ ACHS with meals/snacks * NovoLog per correctional scale, 1-2 units administered 2 hrs after a meal if BSG > 150mg/dl * Last A1c: 7.5% (02/10/19) * Diet is carb heavy, so patient will likely require a tight carb ratio ASSESSMENT: * Patient's BGs remained elevated overnight likely due to steroid-induced hyperglycemia * Patient received 20 units of NPH with her 1900 dose of prednisone 40 mg yesterday * Per pulmonology consult, will likely taper by decreasing prednisone by 10 mg weekly * Fasting BG this morning was elevated at 253. Adjusted CF and insulin:CHO to 20 and 5 from 30 and 6 * Patient prefers to receive no more than 3 units of basal insulin - no adjustment made to Lantus * pre-lunch BG was 71 - adjusted CF and insulin:CHO again to 25 units of CF and 6 units per gram of carbs PLAN FOR INPATIENT GLYCEMIC CONTROL: * Basal insulin * Insulin glargine 3 units SQ hs (outpatient regimen) - patient prefers no more than 3 units of basal coverage * Bolus insulin * NovoLog per scale ACHS * Goal Range: Low 110 mg/dL - High 140 mg/dL * Correction Factor: 25 mg/dL/unit * Nutritional / Prandial insulin per carb ratio of 1 unit per 6 grams CHO consumed * Will adjust if needed based on pm BGs * NPH insulin * Increase to 26 units to be given with 1900 dose of prednisone 40 mg PLAN FOR DISCHARGE: * Continue patient's home regimen - diabetes appears to be much better controlled based on most recent A1c. * A1c: 9.3% (04/11/18) -> now 7.5% (02/10/19)
--- NOTE | 2019-03-16 13:58 | Hospitalist Progress Note ---
Date of Service March 16, 2019 Assessment & Plan (1) COPD (chronic obstructive pulmonary disease): COPD with exacerbation, gold level 3, grade C with frequent readmission. Per pulmononology, also possible that it is related to Aspergillus or even rituximab-induced ILD. - Continue prednisone 40mg daily - Long course; no taper for a week - Continue inhalers - Discussing bronchoscopy with the patient. She has some questions and concerns, and would like to speak with the technical writer and editor - For her sputum culture with Aspergillus fumigatus, galactomannan level was drawn. If it is positive, will treat with itraconazole (2) Diabetes mellitus, type II: HbA1c 7.5% in January 2019. Blood sugars became very elevated on steroids. - Continue home insulin. - Sliding scale insulin - Glycemic consult (3) Hypertension: BP currently 150/80. - Not on any home meds - Monitor BP (4) Lymphoma: Follicular non-hodgkins lymphoma May 2017: Followed by Dr. Ayala. Previously treated with Rituxan. Right IJ Mediport is non-functional. (5) DVT prophylaxis: SCDs - Low DVT risk per admission calculator Subjective Still reports cough and stable dyspnea on exertion. Minimal shortness of breath at rest. Review of Systems Review of Systems: All systems reviewed & are unremarkable except as noted in HPI & below Physical Exam Constitutional: WD/WN, vitals as above Eyes: EOM intact bilaterally; no conjunctival abnormality ENMT: external ear and nose normal, oropharynx normal Neck: trachea midline, no thyromegaly normal visual inspection Respiratory: normal respiratory effort, lungs clear to auscultation + labored breathing; no respiratory distress Auscultation: + rhonchi Cardiovascular: RRR, no murmur, no edema Gastrointestinal (Abdomen): Inspection/Auscultation: abdomen normal to inspection; abdomen not distended Musculoskeletal: no cyanosis or clubbing, extremities motor strength 5/5 Skin: no rashes, warm and dry Neurologic: moves all extremities and awake Psychiatric: Orientation: alert, oriented to person and cooperative Results & Data Vital Signs (Past 12 Hours) Vital Signs Temp Pulse Resp BP Pulse Ox 03/16/19 07:34 36.5 C 95 H 20 154/80 H 93 03/16/19 06:50 94 H 16 96 (1) Hypertension Hypertension type: essential hypertension Qualified Code(s): I10 - Essential (primary) hypertension (2) Lymphoma Lymphoma type: non-Hodgkin Non-Hodgkin lymphoma type: follicular Follicular lymphoma type: unspecified follicular type Lymphoma site: unspecified region Qualified Code(s): C82.90 - Follicular lymphoma, unspecified, unspecified site
[2019-03-16] MEDS: predniSONE 20 MG TAB PO SCH (17:33)
--- NOTE | 2019-03-16 18:24 | Discharge Summary ---
Date of Service March 16, 2019 Admission HPI Per Admitting Provider 49-year-old female presents to the emergency department complaining of cough and shortness of breath beginning five days ago (). - Of note, she was an inpatient from February 08- for similar symptoms. She was seen by pulmonology, thought to have a COPD exacerbation, and treated accordingly. Patient says in the interim between then and now she was followed up in the pulmonology clinic. She says that she was told that she was "too sick" to get PFTs there. She says the exact cause of her ongoing shortness of breath is unclear. She was previously on Rituxan for her lymphoma. She also says she was placed on a 10-day course of Augmentin which she completed on , the same day her current symptoms resumed. - Patient says this cough is been productive of some yellow phlegm. No noted hemoptysis. She says that all of the coughing causes her to have some chest discomfort (denies outright chest pain), aches in her back, and a mild headache. She thinks she may have had a subjective fever only this morning. She denies nausea/vomiting, abdominal pain, or extremity edema. Says she has been using her inhalers regularly. She is on 3 L nasal cannula oxygen 24/7 at home. She also says she has home health that comes to her house. --- Past medical history includes COPD, chronic hypoxia, hypertension, hyperlipidemia, type 2 diabetes, CVA, lymphoma. --- Past surgical history includes x3, right axillary lymph node biopsy, right Mediport placement (which she says does not function anymore), bone marrow biopsy. --- Social history includes having quit smoking about 2006 but prior 10 to 20 years of smoking 1 to 2 packs/day. Denies alcohol use. Lives at home alone. Principal Diagnosis COPD exacerbation Discharge Exam Constitutional WD/WN, vitals as above Eyes EOM intact bilaterally; no conjunctival abnormality ENMT external ear and nose normal, oropharynx normal Neck trachea midline, no thyromegaly normal visual inspection Respiratory normal respiratory effort, lungs clear to auscultation + labored breathing; no respiratory distress Auscultation: + rhonchi Cardiovascular RRR, no murmur, no edema Gastrointestinal (Abdomen) Inspection/Auscultation: abdomen normal to inspection; abdomen not distended Musculoskeletal no cyanosis or clubbing, extremities motor strength 5/5 Skin no rashes, warm and dry Neurologic moves all extremities and awake Psychiatric Orientation: alert, oriented to person and cooperative Discharge Data Allergies Allergy/AdvReac Type Severity Reaction Status Date / Time cyclobenzaprine Allergy Intermediate HALLUCINATI Verified 03/14/19 19:37 ON lidocaine Allergy Intermediate ITCHING Verified 03/14/19 19:37 AND BURNING ON CONTACT nystatin Allergy Intermediate ITCHING Verified 03/14/19 19:37 AND BURNING cefaclor Allergy Mild SICK TO Verified 03/14/19 19:37 STOMACH morphine Allergy Mild VOMITTING Verified 03/14/19 19:37 Consultations 03/14/19 20:44 ED Decision to Admit Stat 03/15/19 01:13 Consult Pulmonology Routine Hospital Course (1) COPD (chronic obstructive pulmonary disease): COPD with exacerbation, gold level 3, grade C with frequent readmission. Per pulmononology, also possible that it is related to Aspergillus or even rituximab-induced ILD. - Continue prednisone 40mg daily - Long course; no taper until seen by pulm - Continued inhalers - Discussing bronchoscopy with the patient. She has some questions and concerns and would like to speak with Dr. Burdick prior to pursuing this. - For her sputum culture with Aspergillus fumigatus, galactomannan level was drawn. If it is positive, will treat with itraconazole as outpatient. (2) Diabetes mellitus, type II: HbA1c 7.5% in January 2019. Blood sugars became very elevated on steroids. - On discharge, insulin was increased to 5 units QHS and insulin NPH 25 units when she takes her prednisone (3) Hypertension: BPs were consistently ~150/80. - Not on any home meds - Will need to have recheck as outpatient and consider starting a HTN medication (4) Lymphoma: Follicular non-hodgkins lymphoma May 2017: Followed by Dr. Ayala. Previously treated with Rituxan. Right IJ Mediport is non-functional. (5) DVT prophylaxis: SCDs - Low DVT risk per admission calculator Total Time Total Time Spent Total Time Spent (In Minutes): 25 Discharge Plan Discharge Items Patient Disposition: Home - Self-Care Reason For Visit: SOB, COUGH Discharge Diagnosis: Possible COPD vs. aspergillus infection Discharge Goals: Decrease discomfort and Diagnostic testing Activity: Resume your previous activity Non-emergency contact: Primary Care Provider and Strip Feeder Call non-emergency contact if: you have any medication questions, your symptoms worsen and you have a fever Follow-up/Referrals: Favio Burdick DO [Physician] - 03/23/19 9:00 am (Please, follow up at [facility] Pulmonology Office with Dr. Burdick on ThursdayMarch 23 at 9:00 am. *The office is located in [address] of [facility]. This is the big building next to this hospital. If you need to change this appointment, call the office at [phone].) Gregory Gallegos [Primary Care Provider] - 03/24/19 2:15 pm (Please, follow up with Dr. Gallegos on March 24 at 2:15 pm. *This appointment is in the [place] Office. If you need to change this appointment, call the office at [phone].) Diet: Regular Addtl Provider Instructions: Please take prednisone 40mg every day until seen by Dr. Burdick. Dr. Burdick will go over the test results for your Aspergillus testing and discuss possible anti-fungal treatment. While you are on prednisone, your sugars will be higher. Increase your dosage of Lantus (long-acting or "glargine") insulin to 5 units before bedtime. Take the NPH insulin 25 units when you take the prednisone to help cancel out the effect of the steroids. There was significant concern that the patient's housing condition was worsening her lung issues. Please check the patient's apartment for mold and moisture as this could make her breathing worse and causing exacerbations of her breathing issues. Prescriptions: New prednisone 20 mg tablet 40 mg PO DAILY Qty: 28 RF: 0 Novolin N NPH U-100 Insulin 100 unit/mL Suspension 25 unit subcut DAILY Qty: 10 RF: 0 Continued Novolog U-100 Insulin aspart 100 unit/mL Solution 10 units SUBCUT QID RF: 0 Raw Honey 1 tsp PO DAILY RF: 0 clotrimazole 10 mg Dayday 1 peter PO DIRECTED RF: 0 albuterol sulfate 2.5 mg /3 mL (0.083 %) Solution For Nebulization 2.5 mg INHALATION Q6 RF: 0 ipratropium bromide 0.02 % Solution 0.5 mg INHALATION Q6H RF: 0 Restasis 0.05 % Dropperette 1 drp OPHTHALMIC (EYE) Q12H RF: 0 Symbicort 160-4.5 mcg/actuation Hfa Aerosol Inhaler 2 puff INHALATION BID RF: 0 Probiotic 5 billion cell Capsule, Sprinkle 3 cap PO DAILY RF: 0 Changed Basaglar KwikPen U-100 Insulin 100 unit/mL (3 mL) Insulin Pen 5 unit SUBCUT HS Qty: 0 RF: 0 Discontinued insulin NPH isoph U-100 human 100 unit/mL (3 mL) insulin pen 20 units SQ DAILY PRN (Reason: WHEN TAKES PREDNISONE) RF: 0 Stand-Alone Forms: [facility] Discharge Orders: Discharge Order (Routine); Ordered 03/16/19 Ordered By: Goyo Mir Admission Data Admit Date/Time: 03/15/19 00:30 Attending Provider: Goyo Mir Admit Provider: Mandeep Lobato Primary Care Provider: Gregory Gallegos Other Providers: Juani Webster ; Goyo Mir Service: Medical Other Interventions: Discharge Summary Assessment (RN) Last Done: 03/16/19 17:14
[2019-03-16] MEDS ORDERED: INSULIN HUMAN NPH SQ SCH (19:00)
--- NOTE | 2019-03-16 19:06 | Pulmonology Progress Note ---
Date of Service March 16, 2019 Assessment & Plan (1) COPD (chronic obstructive pulmonary disease): Impression: 1. COPD with exacerbation, gold level 3, grade C with frequent readmission. 2. 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 3. Diabetes with difficult to control glucose due to steroids on board. 4. History of lymphoma, non-Hodgkin's type, status post chemotherapy and Rituxan treatment that completed in September 2018. Plan: 1. Continue prednisone 40 mg p.o. daily, do not taper, I will taper by 10 mg every week rather than quick taper, the findings on the CAT scan are in support of air trapping secondary to obstructive lung disease such as poorly controlled asthma, COPD. 2. Obtain pulmonary function test as an outpatient. 3. Continue current bronchodilators including Symbicort, use DuoNeb or MDI as needed only. 4. Follow the results of Aspergillus study as well as IgE, if elevated or positive, the patient should start on antifungal therapy. 5. She is colonized with Acinetobacter, no treatment is required for it. 6. itraconazole is not available in our institution, voriconazole would be more expensive, I would favor using itraconazole as an outpatient. 7. Rituxan induced interstitial lung disease cannot be excluded. 8. Consider bronchoscopy on elective basis. 9. She can be discharged home. Case discussed with Malika Walden PA-C who is her vat house laborer. Thank you. Subjective The patient is feeling much better while she is on steroids, she denies any chest pain, cough has been occasional but there is no sputum production, it is positional mainly with supine position. No events overnight. Review of Systems Review of Systems: Review of system otherwise was unremarkable including 10 systems. Physical Exam Physical Exam: Vital signs are stable, blood pressure slightly elevated, O2 saturation 95% on 3 L, S1-S2, no oral thrush, distant rhonchi bilaterally, abdomen is benign, no edema, no wheezing, no rash. Results & Data Vital Signs (Past 12 Hours) Vital Signs Temp Pulse Resp BP Pulse Ox 03/16/19 17:14 36.5 C 95 H 18 154/80 H 95 03/16/19 14:24 95 H 18 95 03/16/19 07:34 36.5 C 95 H 20 154/80 H 93 Laboratory Results Labs were reviewed, serology still pending for Aspergillus. Diagnostic Findings No new imaging.
[2019-03-21 12:28] LABS: Aspergillus Flavus Negative (Negative); Aspergillus Niger Negative (Negative)
--- NOTE | 2019-03-21 12:59 | Coding Query ---
To promote full compliance with coding requirements relating to patient care, provider participation is requested in all cases of resistor tester uncertainty. Please assist us with the question(s) below: Coding Question(s): The diagnosis below was documented in the ER H&P, then subsequently fell off all further documentation. Please indicate if it is still a possible diagnosis or ruled out. Physician's Response(s): ACUTE ON CHRONIC RESPIRATORY FAILURE ( ) Diagnosed and POA ( ) Diagnosed and not POA ( x ) Ruled out ( ) Other (please specify) MTDD
[2019-03-22 19:43] LABS: Saccharopolyspora rectivir Ab Not detected (Not detected)
== END 2019-03-16 18:36 | disposition home health service (06) | DRG 191 ==
LOC: ED 18:18 → OBSVTOIN 03-15 00:30 → INTOOBSV 03-15 00:30 → 4E 03-15 00:30 → SUATTDRO 03-15 00:30 → 4E 03-15 01:08

== ENCOUNTER 2019-03-20 13:54 | Inpatient (IN) ==
[2019-03-20] MEDS ORDERED: ALBUT/IPRATROP 3MG/0.5MG NEB 3 ML VIAL INH STA (14:50)
[2019-03-20] MEDS ORDERED: methylPREDNISolone 125 MG/2 ML VIAL IV STA (14:50)
[2019-03-20 14:58] LABS: Basophils # (auto) 0.01 K/uL (0-0.2); Basophils % (auto) 0.1 %; Eosinophils # (auto) 0.06 K/uL (0-0.5); Eosinophils % (auto) 0.6 %; Hematocrit (blood only) 41.5 % (37-47); Hemoglobin 13.3 g/dL (12.0-16.0); Immature Granulocytes # (auto) 0.09 K/uL (0.00-0.02); Immature Granulocytes % (auto) 0.9 %; Lymphocytes # (auto) 0.96 K/uL (1.2-3.4); Lymphocytes % (auto) 9.2 %; Mean Corpuscular Volume 87.9 fL (80-100); Monocytes # (auto) 0.54 K/uL (0.11-0.59); Monocytes % (auto) 5.2 %; Neutrophils # (auto) 8.78 K/uL (1.4-6.5); Platelet Count 184 K/uL (130-400); RDW Coefficient of Variation 13.6 % (11.5-14.5); RDW Standard Deviation 43.7 fL (36.4-46.3); Red Blood Count 4.72 M/uL (4.2-5.4); White Blood Count 10.44 K/uL (4.8-10.8)
--- NOTE | 2019-03-20 15:03 | XRay Report ---
XR chest 1V portable HISTORY: Dyspnea COMPARISON: Chest 03/14/2019. FINDINGS: The lungs are clear. Cardiac silhouette is normal in size. No pleural effusions. No pneumot horax. Right jugular Port-A-Cath terminates at the SVC. IMPRESSION: No acute process. Electronically signed by: Arcadio Gamboa M.D. 03/20/2019 3:02 PM
[2019-03-20 15:06] LABS: Albumin Level 3.2 gm/dl (3.4-5.0); BUN Creatinine Ratio 20.2 (10-20); Est GFR (African American) 129.5; Est GFR (Non-African American) 111.7; Potassium 4.3 mmol/L (3.5-5.1)
[2019-03-20 15:09] LABS: Albumin Globulin Ratio 0.8 (0.9-2); Bilirubin,Total 0.3 mg/dl (0.2-1); Globulin 4.2 gm/dl (2.5-4.0); Total Protein 7.4 gm/dl (6.4-8.2)
[2019-03-20 15:10] LABS: INR 1.1 (0.9-1.1); Partial Thromboplastin Ratio 0.9; Partial Thromboplastin Time 25.1 Seconds (21.0-31.0); Prothrombin Time 10.9 Seconds (9.0-12.0)
--- NOTE | 2019-03-20 17:53 | Emergency Department Note ---
Entered by Magali Johnson acting as a scribe for Peng Greer MD History of Present Illness General Chief complaint: Shortness of Breath/Dyspnea Stated complaint: SOB Source: patient History of Present Illness Provider complaint: shortness of breath Onset (ago): hour(s) (today) Location: chest Maximum Pain Intensity: 10 Quality: + other (shortness of breath) Relieved By: + other (nebulizer treatment) Exacerbated By: + other (laying flat) Associated symptoms: + denies other symptoms (denies leg swelling), + cough and + fever/chills (thinks she has been febrile); no nausea/vomiting The patient is a 49 year old female who presents to the Emergency Department with complaints of shortness of breath today. The patient states that she has been using her nebulizer more than every 6 hours as this helps her symptoms. The patient states that laying flat exacerbates her symptoms. She reports having a productive cough and states that she thinks she has been febrile. The patient states that she wears 3L of Oxygen at home. She denies vomiting or having leg swelling. 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 The patient states that she was admitted on the for the same s ymptoms and was discharged with steroids. She states she was not treated for her fungal infection. Home Medications Home Medications Medication Instructions Recorded Confirmed Type Novolog U-100 Insulin aspart 10 units SUBCUT QID 02/03/19 03/20/19 History Raw Honey 1 tsp PO DAILY 02/03/19 03/20/19 History Probiotic 3 cap PO DAILY 03/14/19 03/20/19 History Restasis 1 drp OPHTHALMIC (EYE) Q12H 03/14/19 03/20/19 History Symbicort 2 puff INHALATION BID 03/14/19 03/20/19 History albuterol sulfate 2.5 mg INHALATION Q6 03/14/19 03/20/19 History clotrimazole 1 peter PO DIRECTED 03/14/19 03/20/19 History ipratropium bromide 0.5 mg INHALATION Q6H 03/14/19 03/20/19 History Basaglar KwikPen U-100 Insulin 5 unit SUBCUT HS #0 ml 03/16/19 03/20/19 Rx insulin NPH isoph U-100 human 25 unit SUBCUT DAILY #10 ml 03/16/19 03/20/19 Rx [Novolin N NPH U-100 Insulin] prednisone 40 mg PO DAILY #28 tab 03/16/19 03/20/19 Rx Allergies Allergy/AdvReac Type Severity Reaction Status Date / Time cyclobenzaprine Allergy Intermediate HALLUCINATI Verified 03/20/19 14:38 ON lidocaine Allergy Intermediate ITCHING Verified 03/20/19 14:38 AND BURNING ON CONTACT nystatin Allergy Intermediate ITCHING Verified 03/20/19 14:38 AND BURNING cefaclor Allergy Mild SICK TO Verified 03/20/19 14:38 STOMACH morphine Allergy Mild VOMITTING Verified 03/20/19 14:38 Past Med/Surg History Medical History Acute on chronic respiratory failure with hypoxia and hypercapnia (Acute) Hypertension Acute respiratory failure with hypoxia and hypercarbia Encounter for pre-operative examination Lymphoma (Chronic) Diabetes (Chronic) Diabetes mellitus, type II Dyspnea History of tobacco abuse Hypoxia Tachycardia Anxiety HX OF Cardiac murmur Diabetes mellitus type 1 Dry eye Hyperlipidemia HX OF Hypertension Low oxygen saturation WEARS O2 AT 2L HS (CAUSED BY CHEMO TX) Lymphoma On home oxygen therapy 2L AT HS Osteoarthritis Stroke AT AGE 43 "STRESS RELATED" Surgical History History of bilateral tubal ligation History of section X 3 History of laparoscopy History of tooth extraction History of vascular access device PORT INSERTION (FOR CHEMO) Ovarian cyst REMOVED Family History Mother Family history of diabetes mellitus Social History Preferred Language: Honduran Communication Ability: Effective Beliefs That Will Affect Care: None marital status: Current Living Situation: Alone Feels Safe at Home: Yes Smoking Status: Former smoker Second Hand Exposure: No Hx Alcohol Use: No Hx Substance Use: No Review of Systems See HPI for pertinent positives & negatives. and A total of 10 systems reviewed and were otherwise negative Physical Exam Vital Signs Vital Signs - 24 hr 03/20/19 13:56 03/20/19 14:26 03/20/19 15:08 Temperature 36.9 C Temperature Source Oral Sepsis Recent Fever Within 48 Hours No Sepsis New/Unexplained Change in Mental Status No Sepsis Action Taken by Nursing No Action Required Pulse Rate 101 H Pulse Rate [Left Finger] 89 Respiratory Rate 93 H 24 Respiratory Effort / Characteristics Spontaneous Non-Labored Spontaneous Respiratory Depth Normal Respiratory Pattern Regular Blood Pressure 193/108 H Blood Pressure Mean 136 Blood Pressure Position Sitting Pulse Oximetry 93 92 Oxygen Delivery Method Nasal Cannula Nasal Cannula Nasal Cannula Oxygen Flow Rate 3 3 3 03/20/19 15:10 03/20/19 15:11 03/20/19 16:45 Temperature Temperature Source Sepsis Recent Fever Within 48 Hours Sepsis New/Unexplained Change in Mental Status Sepsis Action Taken by Nursing Pulse Rate Pulse Rate [Left Finger] 83 128 H Respiratory Rate 20 Respiratory Effort / Characteristics Respiratory Depth Respiratory Pattern Blood Pressure Blood Pressure Mean Blood Pressure Position Pulse Oximetry 98 99 93 Oxygen Delivery Method Nasal Cannula Nebulizer Nasal Cannula Oxygen Flow Rate 3 3 Constitutional: Vital signs reviewed. Eyes: Pupils are equal round reactive to light. Conjunctiva are noninjected. ENT: Pharynx is clear without erythema or exudate. Mucous membranes are moist. Neck supple without meningeal signs. Respiratory: Wheezing bilaterally. Breath sounds are equal bilaterally with poor air entry bilaterally. Cardiovascular: Regular rate and rhythm. No rubs or gallops. GI: Soft, nondistended and nontender. Bowel sounds are present. Musculoskeletal: No peripheral edema. No lower extremity tenderness. Integumentary: No cyanosis. Neurological: The patient is awake and alert. No focal deficits. Psychiatric: Normal affect. Course 1448: The patient was evaluated in room A3. A history and physical were performed. 1618: I checked on the patient. She was still tachycardic and wheezing. She was agreeable to admission. 1621: I discussed the patient's case with Dr. Rubio who said that he will see the patient in the hospital. 1629: I discussed the patient's case with Dr. Eber Moncada who will evaluate the patient for further management. Consultations Consultation #1: Dr. Rubio Time: 16:21 Consultation #2: Dr. Eber Moncada Time: 16:29 Administered Medications Discontinued Medications Albuterol (Duoneb) 12 ml INH ONE STA Stop: 03/20/19 14:51 Last Admin: 03/20/19 15:08 Dose: 12 ml Documented by: [id number] Methylprednisolone (Solumedrol) 60 mg IV NOW STA Stop: 03/20/19 14:51 Last Admin: 03/20/19 15:21 Dose: 60 mg Documented by: [id number] Medical Decision Making Differential Diagnosis Differentials include COPD exacerbation, pneumothorax, pneumonia, bronchitis, and aspergillus. Medical Records Attestation: I reviewed the patient's medical records. I did perform a limited focused review of portions of the patient's old chart on the electronic medical record. The patient was admitted on the for a cough and shortness of breath. She was diagnosed with COPD exacerbation. She was seen by pulmonology who thought that her symptoms could be related to aspergillus or ILD. Home Medications Current Medication List: was personally reviewed by me Laboratory Data Attestation: I reviewed the patient's lab results. Result diagrams: 03/20/19 14:20 03/20/19 14:20 Lab Results 03/20/19 03/20/19 03/20/19 Range/Units 14:20 14:20 14:20 WBC 10.44 (4.8-10.8) K/uL RBC 4.72 (4.2-5.4) M/uL Hgb 13.3 (12.0-16.0) g/dL Hct 41.5 (37-47) % MCV 87.9 (80-100) fL MCH 28.2 (25-34) pg MCHC 32.0 (32-36) g/dL RDW Std Deviation 43.7 (36.4-46.3) fL RDW Coeff of Leopoldo 13.6 (11.5-14.5) % Plt Count 184 (130-400) K/uL MPV 9.0 (7.4-10.4) fL Immature Gran % (Auto) 0.9 % Neut % (Auto) 84.0 % Lymph % (Auto) 9.2 % [place] % (Auto) 5.2 % Eos % (Auto) 0.6 % Baso % (Auto) 0.1 % Immature Gran # (Auto) 0.09 H (0.00-0.02) K/uL Neut # (Auto) 8.78 H (1.4-6.5) K/uL Lymph # (Auto) 0.96 L (1.2-3.4) K/uL [place] # (Auto) 0.54 (0.11-0.59) K/uL Eos # (Auto) 0.06 (0-0.5) K/uL Baso # (Auto) 0.01 (0-0.2) K/uL PT 10.9 (9.0-12.0) Seconds INR 1.1 (0.9-1.1) APTT 25.1 (21.0-31.0) Seconds PTT Ratio 0.9 Sodium 141 (136-145) mmol/L Potassium 4.3 (3.5-5.1) mmol/L Chloride 101 (98-107) mmol/L Carbon Dioxide 37 H (21-32) mmol/L Anion Gap 3.0 (3-11) BUN 11 (7-18) mg/dl Creatinine 0.55 L (0.6-1.2) mg/dl Est Cr Clr Drug Dosing 121.0 ml/min Est GFR ( Amer) 129.5 Est GFR (Non-Af Amer) 111.7 BUN/Creatinine Ratio 20.2 H (10-20) Glucose 235 H (70-99) mg/dl Calcium 11.0 H (8.5-10.1) mg/dl Total Bilirubin 0.3 (0.2-1) mg/dl AST 20 (15-37) U/L ALT 21 (12-78) U/L Alkaline Phosphatase 111 (45-117) U/L POC Troponin I (0-0.045) ng/ml Total Protein 7.4 (6.4-8.2) gm/dl Albumin 3.2 L (3.4-5.0) gm/dl Globulin 4.2 H (2.5-4.0) gm/dl Albumin/Globulin Ratio 0.8 L (0.9-2) 03/20/19 Range/Units 15:40 WBC (4.8-10.8) K/uL RBC (4.2-5.4) M/uL Hgb (12.0-16.0) g/dL Hct (37-47) % MCV (80-100) fL MCH (25-34) pg MCHC (32-36) g/dL RDW Std Deviation (36.4-46.3) fL RDW Coeff of Leopoldo (11.5-14.5) % Plt Count (130-400) K/uL MPV (7.4-10.4) fL Immature Gran % (Auto) % Neut % (Auto) % Lymph % (Auto) % [place] % (Auto) % Eos % (Auto) % Baso % (Auto) % Immature Gran # (Auto) (0.00-0.02) K/uL Neut # (Auto) (1.4-6.5) K/uL Lymph # (Auto) (1.2-3.4) K/uL [place] # (Auto) (0.11-0.59) K/uL Eos # (Auto) (0-0.5) K/uL Baso # (Auto) (0-0.2) K/uL PT (9.0-12.0) Seconds INR (0.9-1.1) APTT (21.0-31.0) Seconds PTT Ratio Sodium (136-145) mmol/L Potassium (3.5-5.1) mmol/L Chloride (98-107) mmol/L Carbon Dioxide (21-32) mmol/L Anion Gap (3-11) BUN (7-18) mg/dl Creatinine (0.6-1.2) mg/dl Est Cr Clr Drug Dosing ml/min Est GFR ( Amer) Est GFR (Non-Af Amer) BUN/Creatinine Ratio (10-20) Glucose (70-99) mg/dl Calcium (8.5-10.1) mg/dl Total Bilirubin (0.2-1) mg/dl AST (15-37) U/L ALT (12-78) U/L Alkaline Phosphatase (45-117) U/L POC Troponin I < 0.03 (0-0.045) ng/ml Total Protein (6.4-8.2) gm/dl Albumin (3.4-5.0) gm/dl Globulin (2.5-4.0) gm/dl Albumin/Globulin Ratio (0.9-2) Imaging Data Radiologist's Impression: Radiology results as stated below per my review and the radiologist's interpretation: XR chest 1V portable HISTORY: Dyspnea COMPARISON: Chest 03/14/2019. FINDINGS: The lungs are clear. Cardiac silhouette is normal in size. No pleural effusions. No pneumothorax. Right jugular Port-A-Cath terminates at the SVC. IMPRESSION: No acute process. Electronically signed by: Arcadio Gamboa M.D. 03/20/2019 3:02 PM ECG Data Attestation: I personally reviewed and interpreted this ECG as follows: Indication: SOB/dyspnea Rate (beats per minute): 80 Rhythm: normal sinus Findings: no PVC and no ST elevation Blood Pressure Blood Pressure Findings: Elevated blood pressure Blood Pressure Disposition: Referred to patients primary care provider MDM Narrative I did evaluate the patient as noted above. The patient is presenting with persistent shortness of breath. She states she cannot lie down at home. She is on continue oxygen at home. She has had multiple nebulizers without significant relief. She has diffuse wheezing with poor air entry bilaterally on exam. IV access was established. The patient was placed on a continuous playground monitor. I did treat her with Solu-Medrol 60 mg IV. She was also given an hour-long continuous DuoNeb. I did order and personally review the patient's 12-lead EKG as described above. She has no evidence of acute ischemia. I did order and personally reviewed the images of the patient's chest x-ray as described above. There is no evidence of pneumonia. I did order and review the patient's blood work as noted in the electronic medical record. Her bicarb is 37. Her white count is not significantly elevated. I did reassess the patient. She still has significant wheezing. I did recommend hospitalization. I did discuss the case with Dr. Chisholm of pulmonology who knows the patient. He will see her in the hospital. I did discuss case with the hospitalist and case packer. Impression & Plan COPD exacerbation Discharge Plan Visit Data Chief Complaint: Shortness of Breath/Dyspnea Stated Complaint: SOB ED Provider: Peng Greer Discharge Problem: COPD exacerbation Patient Disposition: Being Evaluated by Hospitalist Forms Stand Alone Forms: My [facility] [employer] Prescriptions Prescriptions: No Action Novolog U-100 Insulin aspart 100 unit/mL Solution 10 units SUBCUT QID RF: 0 Raw Honey 1 tsp PO DAILY RF: 0 clotrimazole 10 mg Dayday 1 peter PO DIRECTED RF: 0 albuterol sulfate 2.5 mg /3 mL (0.083 %) Solution For Nebulization 2.5 mg INHALATION Q6 RF: 0 ipratropium bromide 0.02 % Solution 0.5 mg INHALATION Q6H RF: 0 Restasis 0.05 % Dropperette 1 drp OPHTHALMIC (EYE) Q12H RF: 0 Symbicort 160-4.5 mcg/actuation Hfa Aerosol Inhaler 2 puff INHALATION BID RF: 0 Probiotic 5 billion cell Capsule, Sprinkle 3 cap PO DAILY RF: 0 prednisone 20 mg tablet 40 mg PO DAILY Qty: 28 RF: 0 Novolin N NPH U-100 Insulin 100 unit/mL Suspension 25 unit subcut DAILY Qty: 10 RF: 0 Basaglar KwikPen U-100 Insulin 100 unit/mL (3 mL) Insulin Pen 5 unit SUBCUT HS Qty: 0 RF: 0 Referrals Referrals: Gregory Christy [Primary Care Provider] - The scribe's documentation has been prepared under my direction and personally reviewed by me in its entirety. I confirm that the note above accurately reflects all work, treatment, procedures, and medical decision making performed by me.
[2019-03-20] MEDS ORDERED: MAGNESIUM HYDROXIDE SUSP 30 ML UDC PO PRN (18:36)
[2019-03-20] MEDS ORDERED: ALUMINUM/MAGNESIUM SUSP 30 ML UDC PO PRN (18:36)
[2019-03-20] MEDS ORDERED: ONDANSETRON INJ 2 MG/ML 2 ML VIAL IV PRN (18:36)
[2019-03-20] MEDS ORDERED: POLYETHYLENE (MIRALAX) 17 GM PACK PO PRN (18:36)
[2019-03-20] MEDS ORDERED: GLUCOSE 10 TABS/TUBE PO PRN (19:00)
[2019-03-20] MEDS ORDERED: DEXTROSE 50% 50 ML SYRINGE IV PRN (19:00)
[2019-03-20] MEDS ORDERED: CARBOHYDRATES FOR HYPOGLYCEMIA PO PRN (19:00)
[2019-03-20] MEDS ORDERED: GLUCAGON FOR INJ 1 MG VIAL IM PRN (19:00)
[2019-03-20] MEDS ORDERED: GLUCOSE 40% GEL 15 GM TUBE PO PRN (19:00)
[2019-03-20] MEDS: ALBUT/IPRATROP 3MG/0.5MG NEB 3 ML VIAL INH SCH (19:28)
--- NOTE | 2019-03-20 19:59 | History & Physical Report ---
Date of Service March 20, 2019 Assessment & Plan (1) COPD exacerbation: Concern is whether or not the aspergillus in her sputum may be the culprit. She certainly has had recent immune compromised with her lymphoma and chemo, she is certainly been on steroids and antibiotics recently. The question would be whether or not her sputum culture the last time was colonization or active infection. Antibodies sent are still pending. We will ask infectious disease for an opinion. For now we will hold off on antibiotics. She is short of breath but not in extreme duress. Will utilize steroids and nebulizers. May need pulmonary assistance as well. (2) Aspergillus: See above, question significance but certainly given that she is not getting any better, there is a lot of plausibility that the aspergillus may be a culprit here. Will await infectious disease input (3) COPD (chronic obstructive pulmonary disease): (4) Acute on chronic respiratory failure: Continue inhalers and oxygen (5) Hypertension: Follow, does not appear to be on any home meds for this. (6) Diabetes mellitus, type II: Check an A1c. Continue insulin management with a basal bolus regimen. Follow closely. (7) Tachycardia: Likely relates to her respiratory distress. Because she was at times quite tachycardic in the ER we will initially at least start her care on telemetry to be on to follow rates and rhythms. (8) DVT prophylaxis: Lovenox History of Present Illness Chief Complaint: Shortness of breath Primary Care Provider: Gregory Christy Patient notes she is just really never felt better during any of the prior admissions or now. She came back because she is sick of feeling short of breath. She notes that she just generally feels like she is struggling. There was not any real acute worsening, but she does have an ongoing cough chest pain with the cough shortness of breath and feeling like she is just generally failing. No objective fever which measured but she does feel feverish. No rigors. She has cough with some sputum. Allergies Allergy/AdvReac Type Severity Reaction Status Date / Time cyclobenzaprine Allergy Intermediate HALLUCINATI Verified 03/20/19 14:38 ON lidocaine Allergy Intermediate ITCHING Verified 03/20/19 14:38 AND BURNING ON CONTACT nystatin Allergy Intermediate ITCHING Verified 03/20/19 14:38 AND BURNING cefaclor Allergy Mild SICK TO Verified 03/20/19 14:38 STOMACH morphine Allergy Mild VOMITTING Verified 03/20/19 14:38 Home Medications Home Medications Medication Instructions Recorded Confirmed Type Novolog U-100 Insulin aspart 10 units SUBCUT QID 02/03/19 03/20/19 History Raw Honey 1 tsp PO DAILY 02/03/19 03/20/19 History Probiotic 3 cap PO DAILY 03/14/19 03/20/19 History Restasis 1 drp OPHTHALMIC (EYE) Q12H 03/14/19 03/20/19 History Symbicort 2 puff INHALATION BID 03/14/19 03/20/19 History albuterol sulfate 2.5 mg INHALATION Q6 03/14/19 03/20/19 History clotrimazole 1 peter PO DIRECTED 03/14/19 03/20/19 History ipratropium bromide 0.5 mg INHALATION Q6H 03/14/19 03/20/19 History Basaglar KwikPen U-100 Insulin 5 unit SUBCUT HS #0 ml 03/16/19 03/20/19 Rx insulin NPH isoph U-100 human 25 unit SUBCUT DAILY #10 ml 03/16/19 03/20/19 Rx [Novolin N NPH U-100 Insulin] prednisone 40 mg PO DAILY #28 tab 03/16/19 03/20/19 Rx Past Med/Surg History Medical History Acute on chronic respiratory failure with hypoxia and hypercapnia (Acute) Hypertension Acute respiratory failure with hypoxia and hypercarbia Encounter for pre-operative examination Lymphoma (Chronic) Diabetes (Chronic) Diabetes mellitus, type II Dyspnea History of tobacco abuse Hypoxia Tachycardia Anxiety HX OF Cardiac murmur Diabetes mellitus type 1 Dry eye Hyperlipidemia HX OF Hypertension Low oxygen saturation WEARS O2 AT 2L HS (CAUSED BY CHEMO [place]) Lymphoma On home oxygen therapy 2L AT HS Osteoarthritis Stroke AT AGE 43 "STRESS RELATED" Surgical History History of bilateral tubal ligation History of section X 3 History of laparoscopy History of tooth extraction History of vascular access device PORT INSERTION (FOR CHEMO) Ovarian cyst REMOVED Family History Mother Family history of diabetes mellitus Social History Preferred Language: Omani Communication Ability: Effective Beliefs That Will Affect Care: None marital status: Current Living Situation: Alone Other Information That Helps Us Care for You: No Feels Safe at Home: Yes Safety Concerns: Feels Safe At This Time Smoking Status: Former smoker Second Hand Exposure: No Hx Alcohol Use: No Hx Substance Use: No Review of Systems Review of Systems: All systems reviewed & are unremarkable except as noted in HPI & below No edema. Does have low back pain. Physical Exam Physical Exam: In general she is awake and alert and oriented pleasant but anxious no distress. HEENT normal cephalic atraumatic mucous membranes are moist Cardio is regular without rubs murmurs or gallops Lungs are markedly diminished bilaterally no rales rhonchi or wheezes good effort Abdomen is soft nondistended nontender no masses organomegaly Extremities without cyanosis clubbing or edema no calf tenderness Skin shows no rashes no pallor icterus Neuro shows cranial nerves II through XII be grossly intact gross motor and sensory intact Mental status is anxious but good recent and remote recall normal mood and affect otherwise Muscular skeletal exam shows bilateral lumbar paraspinal hypertonicity. Does not respond very well to direct myofascial Results & Data Vital Signs (Past 12 Hours) Vital Signs Temp Pulse Pulse Resp BP BP Pulse Ox 03/20/19 19:28 107 H 18 92 03/20/19 18:39 36.8 C 99 H 16 153/82 H 90 03/20/19 18:00 104 H 20 92 03/20/19 17:54 112 H 130/84 91 03/20/19 16:45 128 H 20 93 03/20/19 15:11 83 99 03/20/19 15:10 98 03/20/19 15:08 89 24 92 03/20/19 13:56 36.9 C 101 H 93 H 193/108 H 93 (1) Acute on chronic respiratory failure Respiratory failure complication: hypoxia Qualified Code(s): J96.21 - Acute and chronic respiratory failure with hypoxia (2) Hypertension Hypertension type: essential hypertension Qualified Code(s): I10 - Essential (primary) hypertension
[2019-03-20] MEDS ORDERED: IPRATROPIUM BROMIDE NEB SOLN 0.02% 2.5 ML VIAL INH SCH (20:00)
[2019-03-20] MEDS ORDERED: ALBUTEROL 0.083% NEBU SOLN 3 ML VIAL INH SCH (20:00)
[2019-03-20] MEDS: BUDESONIDE/FORMOTEROL FUMARATE 160/4.5 60 PUFFS/INHALER INH SCH (20:03)
[2019-03-20] MEDS: INSULIN GLARGINE SOLOSTAR 100 UNITS/ML 3 ML PEN SC SCH (20:04)
[2019-03-20] MEDS: CLOTRIMAZOLE 10 MG TROCHE BUCCAL SCH (20:04)
[2019-03-20] MEDS: INSULIN ASPART 100 UNITS/ML 3 ML PEN SC SCH (20:05)
[2019-03-20] MEDS: ENOXAPARIN INJ 40 MG/0.4 ML SYR SQ SCH (20:06)
[2019-03-20] MEDS: ACETAMINOPHEN 325 MG TAB PO PRN (20:19)
[2019-03-20] MEDS ORDERED: COUGH DROP (SUGAR FREE) LOZ 24 LOZ/1 BOX BUCCAL ONE (21:47)
[2019-03-20] MEDS: methylPREDNISolone 40 MG in SYRINGE 0 ML IV SCH (22:52)
[2019-03-20] MEDS: guaiFENesin SUGAR FREE 100 MG/5 ML UDC PO PRN (22:56)
[2019-03-21] MEDS: INSULIN ASPART 100 UNITS/ML 3 ML PEN SC SCH ×5 (00:01→20:54)
[2019-03-21] MEDS: ALBUT/IPRATROP 3MG/0.5MG NEB 3 ML VIAL INH SCH ×4 (01:53→17:59)
[2019-03-21] MEDS: ACETAMINOPHEN 325 MG TAB PO PRN ×3 (02:44→17:55)
[2019-03-21] MEDS: guaiFENesin SUGAR FREE 100 MG/5 ML UDC PO PRN ×2 (04:31→17:42)
[2019-03-21] MEDS: RESTASIS EYE DROPS: ORDER AWAITING ACTION SCH ×3 (04:33→17:49)
[2019-03-21] MEDS: CLOTRIMAZOLE 10 MG TROCHE BUCCAL SCH ×4 (06:01→17:48)
[2019-03-21] MEDS: methylPREDNISolone 40 MG in SYRINGE 0 ML IV SCH ×3 (06:01→17:48)
[2019-03-21] MEDS: LACTOBACILLUS ACIDOPHILUS (FLORANEX) TAB PO SCH (08:11)
[2019-03-21] MEDS: INSULIN GLARGINE SOLOSTAR 100 UNITS/ML 3 ML PEN SC SCH (08:11)
[2019-03-21] MEDS: BUDESONIDE/FORMOTEROL FUMARATE 160/4.5 60 PUFFS/INHALER INH SCH ×2 (08:12→20:58)
--- NOTE | 2019-03-21 10:12 | Infectious Disease Consult ---
Date of Consultation March 21, 2019 Assessment & Plan (1) COPD exacerbation: pt with increased cough, would be more concerned about acinetobacter in sputum. Aspergillus grew in rare amount, unclear significance, no infiltrate or nodule noted. may represent oral isidoro. would suggest levaquin 500mg po daily and if symptoms do not improve, may require treatment for fungal infection. will check proclacitonin as well. aspergillus ab pending, this will help guide antifungal therapy as well. Agree with itraconazole, if needed. Certainly she has many factors contributing to her hypoxia, if concern for fungal infection remains high, may benefit from bronch. will follow. History of Present Illness Attending Physician: Kishore Lantigua pt admitted for increased SOB and worsening cough. follows routinely wit pulm, last visit 03/09. chart reviewed, sputum culture ordered, grew moderate Acinetobacter and rare aspergillus. CXR stable, no infiltrate. Was recently admitted and d/c home. was evaluated by pulm in hospital. sputum culture results felt to be colonization, no abx given, plan to follow up with pulm post d/c. Had increased sob and green sputum, previously was clear. denies blood. no h/o bronchs in the past. Is on steroids chronically for COPD, asthma and ? chemo induced hypoxemia, h/o lymphoma. In January she underwent CTA, negative for PE, infiltrate, or nodule. afebrile since admission and during last admit as well. wbc 10.9 (on chronic steroids) aspergillus serologies pending from 03/15. ID asked to eval due to ? need for treatment of aspergillus, plan per pulm at last admission was to potentially start itraconazole if symptoms worsened. No previous micro for review. Pt states cough has increased, become more productive but denies hemoptysis. no cp, + lay. no sob at rest. no f/c at home, no sick contacts. has h/o thrush, no symptoms currently. eating well. no n/v/d, no wt loss. no gu symptoms. Allergies Allergy/AdvReac Type Severity Reaction Status Date / Time cyclobenzaprine Allergy Intermediate HALLUCINATI Verified 03/20/19 14:38 ON lidocaine Allergy Intermediate ITCHING Verified 03/20/19 14:38 AND BURNING ON CONTACT nystatin Allergy Intermediate ITCHING Verified 03/20/19 14:38 AND BURNING cefaclor Allergy Mild SICK TO Verified 03/20/19 14:38 STOMACH morphine Allergy Mild VOMITTING Verified 03/20/19 14:38 Home Medications Home Medications Medication Instructions Recorded Confirmed Type Novolog U-100 Insulin aspart 10 units SUBCUT QID 02/03/19 03/20/19 History Raw Honey 1 tsp PO DAILY 02/03/19 03/20/19 History Probiotic 3 cap PO DAILY 03/14/19 03/20/19 History Restasis 1 drp OPHTHALMIC (EYE) Q12H 03/14/19 03/20/19 History Symbicort 2 puff INHALATION BID 03/14/19 03/20/19 History albuterol sulfate 2.5 mg INHALATION Q6 03/14/19 03/20/19 History clotrimazole 1 peter PO DIRECTED 03/14/19 03/20/19 History ipratropium bromide 0.5 mg INHALATION Q6H 03/14/19 03/20/19 History Basaglar KwikPen U-100 Insulin 5 unit SUBCUT HS #0 ml 03/16/19 03/20/19 Rx insulin NPH isoph U-100 human 25 unit SUBCUT DAILY #10 ml 03/16/19 03/20/19 Rx [Novolin N NPH U-100 Insulin] prednisone 40 mg PO DAILY #28 tab 03/16/19 03/20/19 Rx Patient History Medical History Acute on chronic respiratory failure with hypoxia and hypercapnia (Acute) Hypertension Acute respiratory failure with hypoxia and hypercarbia Encounter for pre-operative examination Lymphoma (Chronic) Diabetes (Chronic) Diabetes mellitus, type II Dyspnea History of tobacco abuse Hypoxia Tachycardia Anxiety HX OF Cardiac murmur Diabetes mellitus type 1 Dry eye Hyperlipidemia HX OF Hypertension Low oxygen saturation WEARS O2 AT 2L HS (CAUSED BY CHEMO TX) Lymphoma On home oxygen therapy 2L AT HS Osteoarthritis Stroke AT AGE 43 "STRESS RELATED" Surgical History History of bilateral tubal ligation History of section X 3 History of laparoscopy History of tooth extraction History of vascular access device PORT INSERTION (FOR CHEMO) Ovarian cyst REMOVED Family History Mother Family history of diabetes mellitus Social History Preferred Language: Danish Communication Ability: Effective Beliefs That Will Affect Care: None marital status: Current Living Situation: Alone Other Information That Helps Us Care for You: No Feels Safe at Home: Yes Safety Concerns: Feels Safe At This Time Smoking Status: Former smoker Second Hand Exposure: No Hx Alcohol Use: No Hx Substance Use: No Review of Systems Review of Systems: All systems reviewed & are unremarkable except as noted in HPI & below Physical Exam Constitutional: WD/WN, vitals as above Eyes: PERRL, conjunctivae normal, anicteric sclerae ENMT: external ear and nose normal, oropharynx normal Neck: trachea midline, no thyromegaly normal visual inspection Respiratory: normal respiratory effort; no labored breathing Auscultation: + diminished lung sounds; no rhonchi and no wheezes Cardiovascular: RRR, no murmur, no edema Gastrointestinal (Abdomen): normal bowel sounds, soft, nontender, no hepatosplenomegaly Musculoskeletal: no cyanosis or clubbing, extremities motor strength 5/5 Skin: no rashes, warm and dry Psychiatric: A+Ox3, euthymic affect Results & Data Vital Signs (Past 12 Hours) Vital Signs Temp Pulse Pulse Resp BP Pulse Ox 03/21/19 07:41 36.6 C 91 H 18 154/82 H 91 03/21/19 07:11 81 18 97 03/21/19 07:08 36.7 C 70 19 160/82 H 97 03/21/19 04:35 36.6 C 80 20 149/82 H 95 03/21/19 01:54 89 18 90 03/21/19 00:00 78 03/20/19 23:44 36.6 C 77 22 156/85 H 96
[2019-03-21] MEDS ORDERED: PHARMACY GLYCEMIC MGMT CONSULT PRN (14:42)
--- NOTE | 2019-03-21 14:55 | Pharmacy Report ---
Pharmacy Glycemic Short Note 2 - Date of Service March 21, 2019 - Glycemic Short BSG Results (Last 24 hours): 03/20/19 03/20/19 03/20/19 14:20 19:07 21:54 Glucose 235 H POC Glucose 282 H 247 H 03/21/19 03/21/19 07:18 11:32 Glucose POC Glucose 229 H 342 H* Date of Consult: 03/21/19 Consulted by: Dr. Lantigua OUTPATIENT ANTIDIABETIC REGIMEN: * Basaglar 5 units SQ HS * NPH 25 units SQ daily * Novolog 10 units SQ QID The patient is currently receiving: * Basal insulin: Lantus 20 units every 12 hours * Correctional Insulin: Novolog Correction per scale ACHS Goal Range: Low 120 mg/dL - High 160 mg/dL Correction Factor: 25 mg/dL/unit * Prandial insulin: Per carb ratio of 1 unit per 9 grams CHO consumed Risk Factors for Insulin Resistance: * Steroids: Solu-medrol 40mg IV Q8H * Diet: Carb Consistent - Type 2 ASSESSMENT: * Patient is admitted with SOB 2/2 acute on chronic respiratory failure with hypoxia. * She was started on Solu-medrol 40mg IV Q8H. BSGs reached 250-280s evening of 03/20. * Fasting BSG this AM is elevated at 229. Likely due to low outpt dose of Basaglar and only 1x dose of 20 units Lantus on board. Post-prandial BSGs trending up, peak of 342 today. * At this point, spoke with Hospitalist and Pharmacy was consulted to follow and adjust glycemic control. * Subsequently, Solu-medrol was decreased from Q8H to Q12H. * Will tighten Novolog beyond weight-based stress of 3 as it appears she needs more bolus coverage. Goal of 60/40 bolus/basal coverage with steroids. Lantus scale for this evening in case 20 units BID too aggressive. PLAN FOR INPATIENT GLYCEMIC CONTROL: * Hold outpatient oral diabetes medications * Basal insulin * Lantus per the following: * BSG < 120 - 0 units * BSG 120-140 - 10 units * BSG >140 - 20 units * Bolus insulin * NovoLog per scale ACHS * Goal Range: Low 120 mg/dL - High 160 mg/dL * Correction Factor: 20 mg/dL/unit * Nutritional / Prandial insulin per carb ratio of 1 unit per 6 grams CHO consumed
[2019-03-21] MEDS: ENOXAPARIN INJ 40 MG/0.4 ML SYR SQ SCH (20:58)
[2019-03-21] MEDS ORDERED: INSULIN GLARGINE SOLOSTAR 100 UNITS/ML 3 ML PEN SC SCH (21:00)
--- NOTE | 2019-03-21 22:11 | Consultation Report ---
DATE OF CONSULTATION: 03/21/2019 PULMONARY MEDICINE CONSULTATION REASON FOR CONSULTATION: Rule out ABPA in a patient with previous history of non-Hodgkin's lymphoma. HISTORY OF PRESENT ILLNESS: This patient is a 49-year-old white female who had to be readmitted to the Emergency Room on 03/20/2019 after previous hospitalization and discharged 4 days prior to the Emergency Room visit. The patient was seen in consultation by Dr. Juani Webster and in fact I have seen the patient in consultation during previous admission in 01/2019. I refer you to that consultative note. The patient has a history of follicular cell non-Hodgkin's lymphoma diagnosed in 05/2017 and has been under the care of Dr. Alex Ayala division of hematology/oncology with the [facility]. She has a history of hypertension, dyslipidemia, diabetes mellitus and previous cerebrovascular accident. She also has a history of chronic obstructive pulmonary disease and longstanding smoking history in the remote past, 20 years of at least a pack of cigarettes a day. Her primary care physician is Dr. Gregory Christy. 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 In 09/2018 was last time she was treated with Rituxan. Previous laboratory studies have shown 4.1% peripheral eosinophilia and as high as 4.5% in the remote past. PET CT scan of 07/21/[address] scan of the chest on 12/21/2018 were reviewed which showed mosaic attenuation suggesting small airways disease with no obvious evidence of pulmonary thromboembolic disease. The patient states she was discharged and then readmitted on 03/20/[address] Webster. He suggested continuing prednisone 40 mg daily with a slow taper. Pulmonary function studies were suggested. The patient states she has never been in a situation where she could tolerate doing that study. Sputum in the recent past has grown out Acinetobacter, which was felt to be colonization and rare Aspergillus fumigatus colonies were seen. Galactomannan levels have been sent for a suggestion of treatment with either itraconazole or Voriconazole be carried out. She states she has been coughing continually for many months without improvement and is frustrated and does not understand why she cannot be treated more aggressively especially for "fungal infection." She is diabetic and she wears oxygen at night at 2 liters. She does have a vascular access route with A-port that is apparently not operational. She denies hemoptysis, but the sputum is purulent on occasion and is able to bring it up spontaneously and with nebulizer treatments. She has not undergone bronchoscopy. She was admitted with a low-grade white count elevation, but has been on chronic steroid therapy. Her gases have suggested an acute on chronic respiratory failure with hypoxia and hypercarbia. Dr. Rachana Ricardo is seeing the patient as well. Bronchoscopy was to be entertained. She has seen Ms. Malika Montes in the office as well. For details of past medical history, medications, family and social history, I refer you to current and past record. PHYSICAL EXAMINATION: CURRENT VITAL SIGNS: Blood pressure 159/87, pulse 102 and regular, respiratory rate 20, temperature 36.6 and O2 sat 93% on 3 liters. SKIN: Without lesion. HEENT: Atraumatic and normocephalic, PERRLA. EOMI. Conjunctivae pale. Sclerae nonicteric. Fundi poorly visualized. NECK: Neck veins are not distended at 45 degrees. No adenopathy in the infraclavicular or supraclavicular areas. LUNGS: Coarse rhonchi and wheezes diffusely. CARDIAC: Regular rate and rhythm. No murmurs or gallops. ABDOMEN: Soft and scaphoid. No evidence for hepatosplenomegaly. EXTREMITIES: No pedal edema, clubbing or cyanosis. NEUROLOGIC: Intact. No lateralizing signs. LABORATORY DATA: Sputum from 03/09/2019 grew out Acinetobacter baumannii/Haemophilus and Aspergillus fumigatus. Chest x-ray during this admission shows no acute process. CTA done on 02/08/2019 shows mosaic attenuation suggesting small airways disease. Left axillary lymphadenopathy. Glucose levels have been elevated. IgE level was low, but she has been on chronic steroids. Hypersensitivity pneumonitis panel suggested positive antibodies to Aspergillus fumigatus. OVERALL ASSESSMENT: This patient is a 49-year-old female with a longstanding smoking history and history of follicular cell non-Hodgkin's lymphoma, last treated with Rituxan in 09/2018 has been really symptomatic now for many months and somewhat refractory to aggressive both in and outpatient therapy, developing oropharyngeal candidiasis as a result of multiple antibiotics and chronic steroid utilization. Although her IgE level is low, this was done with her on chronic steroids. She has had mild peripheral eosinophilia in the past. I suspect a degree of allergic bronchopulmonary aspergillosis or ABPA doubtful that she has invasive Aspergillus infection. In any event, I think at this point, I would recommend bronchoscopy with BAL and starting empirically on treatment with antifungal in addition to vigorous pulmonary toilet. We will discuss further with the patient and see if we can schedule her for tomorrow's procedure.
--- NOTE | 2019-03-21 22:33 | Hospitalist Progress Note ---
Date of Service March 21, 2019 Assessment & Plan (1) COPD exacerbation: Concern is whether or not the aspergillus in her sputum may be the culprit. She certainly has had recent immune compromised with her lymphoma and chemo, she is certainly been on steroids and antibiotics recently. The question would be whether or not her sputum culture the last time was colonization or active infection. Consulted ID. Appreciate recommendations. Also consulted pulmonary. Patient may require a bronchoscopy. Will utilize steroids and nebulizers. will hold off antibiotics for now as patient may get samples from bronch (2) Aspergillus: See above, question significance but certainly given that she is not getting any better, there is a lot of plausibility that the aspergillus may be a culprit here. Will await infectious disease input (3) COPD (chronic obstructive pulmonary disease): (4) Acute on chronic respiratory failure: Continue inhalers and oxygen (5) Hypertension: Follow, does not appear to be on any home meds for this. (6) Diabetes mellitus, type II: Check an A1c. Continue insulin management with a basal bolus regimen. Follow closely. (7) Tachycardia: Likely relates to her respiratory distress. Because she was at times quite tachycardic in the ER we will initially at least start her care on telemetry to be on to follow rates and rhythms. (8) DVT prophylaxis: Noni Spent 35 minutes of management of patistefanie. This included chart review, discussion with patient and dicussion with consultants. Subjective This is a pleasant 49 yo female. She reports that she continues to feel SOB. She is not at her baseline. She continues to be coughing as well. Review of Systems Review of Systems: All systems reviewed & are unremarkable except as noted in HPI & below Physical Exam Physical Exam: She is awake and alert and oriented pleasant. HEENT: normal cephalic atraumatic mucous membranes are moist Cardio: regular without rubs murmurs or gallops Lungs: decreased breath sounds bilaterally, no rales, rhonchi, or wheezes. Good effort Abdomen: soft, nondistended, nontender, no masses, organomegaly Extremities: without cyanosis clubbing or edema no calf tenderness Skin: no rashes no pallor icterus Neuro shows cranial nerves II through XII be grossly intact gross motor and sensory intact Results & Data Vital Signs (Past 12 Hours) Vital Signs Temp Pulse Resp BP Pulse Ox 03/21/19 18:02 95 H 16 93 03/21/19 16:49 36.8 C 80 18 141/89 H 92 03/21/19 15:46 36.5 C 74 18 148/81 H 95 03/21/19 13:37 89 16 95 03/21/19 10:51 36.6 C 102 H 20 159/87 H 93 (1) Acute on chronic respiratory failure Respiratory failure complication: hypoxia Qualified Code(s): J96.21 - Acute and chronic respiratory failure with hypoxia (2) Hypertension Hypertension type: essential hypertension Qualified Code(s): I10 - Essential (primary) hypertension
[2019-03-22] MEDS: ACETAMINOPHEN 325 MG TAB PO PRN ×3 (00:01→21:20)
[2019-03-22] MEDS: ALBUT/IPRATROP 3MG/0.5MG NEB 3 ML VIAL INH SCH ×4 (01:33→19:33)
[2019-03-22] MEDS: CLOTRIMAZOLE 10 MG TROCHE BUCCAL SCH ×4 (01:52→17:45)
[2019-03-22] MEDS: methylPREDNISolone 40 MG in SYRINGE 0 ML IV SCH ×2 (05:44→17:44)
[2019-03-22] MEDS: RESTASIS EYE DROPS: ORDER AWAITING ACTION SCH ×2 (05:44→17:46)
[2019-03-22] MEDS: guaiFENesin SUGAR FREE 100 MG/5 ML UDC PO PRN ×4 (05:48→21:20)
[2019-03-22] MEDS: BUDESONIDE/FORMOTEROL FUMARATE 160/4.5 60 PUFFS/INHALER INH SCH ×2 (08:25→21:13)
[2019-03-22] MEDS: LACTOBACILLUS ACIDOPHILUS (FLORANEX) TAB PO SCH (08:26)
[2019-03-22] MEDS: INSULIN ASPART 100 UNITS/ML 3 ML PEN SC SCH ×4 (08:26→21:12)
[2019-03-22] MEDS: INSULIN GLARGINE SOLOSTAR 100 UNITS/ML 3 ML PEN SC SCH ×2 (08:27→21:11)
--- NOTE | 2019-03-22 08:28 | Pharmacy Report ---
Pharmacy Glycemic Short Note 2 - Date of Service March 22, 2019 - Glycemic Short BSG Results (Last 24 hours): 03/21/19 03/21/19 03/21/19 11:32 16:08 20:22 POC Glucose 342 H* 111 H 276 H 03/22/19 07:58 POC Glucose 304 H* Date of Consult: 03/21/19 Consulted by: Dr. Lantigua OUTPATIENT ANTIDIABETIC REGIMEN: * Basaglar 5 units SQ HS * NPH 25 units SQ daily * Novolog 10 units SQ QID ASSESSMENT: 03-22: * Patient received total of 77 units of insulin yesterday, of which 40 units were basal insulin. * Fasting BSG this morning elevated at 304 mg/dL - will titrate Lantus dosing and provide scale for this evening * CF/CR was tightened yesterday evening, however BSGs continued to trend up from 111 to 276 mg/dL at HS - will further tighten CR this morning with breakfast * Patient reports taking 10 units QID of Novolog outpatient plus a sliding scale. Typically on prednisone 40 mg daily outpatient and uses NPH 25 units daily for prednisone coverage and then also takes Basaglar 5 units HS. Will likely need >70 units/day for coverage with insulin while on steroids. * Lunchtime BSG remains similar to this morning from 304-294 mg/dL - little change suggests CR appropriate but will need more correctional, therefore will tighten further * Solm changed from Q8 to Q12 hrs today - however do not anticipate change in insulin needs or any adjustments to be made just yet -20: * Patient is admitted with SOB 2/2 acute on chronic respiratory failure with hypoxia. * She was started on Solu-medrol 40mg IV Q8H. BSGs reached 250-280s evening of 03/20. * Fasting BSG this AM is elevated at 229. Likely due to low outpt dose of Basaglar and only 1x dose of 20 units Lantus on board. Post-prandial BSGs trending up, peak of 342 today. * At this point, spoke with Hospitalist and Pharmacy was consulted to follow and adjust glycemic control. * Subsequently, Solu-medrol was decreased from Q8H to Q12H. * Will tighten Novolog beyond weight-based stress of 3 as it appears she needs more bolus coverage. Goal of 60/40 bolus/basal coverage with steroids. Lantus scale for this evening in case 20 units BID too aggressive. PLAN FOR INPATIENT GLYCEMIC CONTROL: * Hold outpatient oral diabetes medications * Basal insulin - increase 25 units QAM * Lantus per the following for QHS: * BSG < 140 - 15 units * BSG 140-180 - 20 units * BSG >180 - 25 units * Bolus insulin - tighten * NovoLog per scale ACHS * Goal Range: Low 110 mg/dL - High 140 mg/dL * Correction Factor: 15mg/dL/unit * Nutritional / Prandial insulin per carb ratio of 1 unit per 5 grams CHO consumed
--- NOTE | 2019-03-22 13:57 | Infectious Disease Progress Nt ---
Date of Service March 22, 2019 Assessment & Plan (1) COPD exacerbation: for bronch in am, await findings. allergic aspergillus, ab negative, no clinical signs of invasive disease. await bronch findings/cultures. Subjective pt seen in followup, family at bedside. still with tight breathing, asking for neb treatment, aspergillus ab negative. no abx. continues on steroids. for bronch in am. afebrile overnight. still with mostly dry cough, occansional sputum, no blood. no am labs to review. eating well. no abd pain, no n/v/d. min pleuritic cp with deep inspiration. Review of Systems Review of Systems: All systems reviewed & are unremarkable except as noted in HPI & below Physical Exam Constitutional: WD/WN, vitals as above Eyes: PERRL, conjunctivae normal, anicteric sclerae ENMT: external ear and nose normal, oropharynx normal Neck: trachea midline, no thyromegaly normal visual inspection Respiratory: normal respiratory effort; no labored breathing Auscultation: + diminished lung sounds; no rhonchi and no wheezes Cardiovascular: RRR, no murmur, no edema Gastrointestinal (Abdomen): normal bowel sounds, soft, nontender, no hepatosplenomegaly Musculoskeletal: no cyanosis or clubbing, extremities motor strength 5/5 Skin: no rashes, warm and dry Psychiatric: A+Ox3, euthymic affect Results & Data Vital Signs (Past 12 Hours) Vital Signs Temp Pulse Resp BP Pulse Ox 03/22/19 07:32 67 18 94 03/22/19 07:30 36.5 C 74 18 148/83 H 95
[2019-03-22] MEDS: ENOXAPARIN INJ 40 MG/0.4 ML SYR SQ SCH (14:04)
--- NOTE | 2019-03-22 14:55 | Progress Note ---
DATE: 03/22/2019 PULMONARY MEDICINE PROGRESS NOTE Chart reviewed, patient examined. SUBJECTIVE: The patient continues to be symptomatic with persistent and intractable cough, sometimes productive of phlegm. She has drainage from the left ear canal which is not new. She is dyspneic with exertion. She wished for me to discuss the diagnostic plan with her friend, Lizzette Bynum and she was in attendance and given permission to be there while we discussed her pulmonary situation. The patient has been on steroid dosing fairly frequently over the past several months without significant improvement in her symptoms. She is O2 dependent. She presented with acute on chronic respiratory failure and her diabetes has been poorly controlled, requiring high doses of insulin because of steroid utilization. She has been treated for oropharyngeal candidiasis in the past and a sputum previously grown out Aspergillus fumigatus, rare colonies along with Acinetobacter. We discussed bronchoscopic evaluation yesterday for today, but she wished to carry on further discussion with her friend in attendance and nothing further was discussed. OBJECTIVE: TODAY'S VITAL SIGNS: Blood pressure 148/83, pulse 67 and regular, respiratory rate 18, temperature 36.5, O2 sat 94% on 3 liters. SKIN: Without lesion. HEENT: Atraumatic, normocephalic. PERRLA. LUNGS: Scattered wheezes, especially of the left base. CARDIAC: Regular rate and rhythm. I do not appreciate a gallop. ABDOMEN: Soft, scaphoid. EXTREMITIES: No significant pedal edema, clubbing or cyanosis. NEUROLOGIC: Intact. No lateralizing signs. OVERALL ASSESSMENT: A 49-year-old white female with chronic obstructive pulmonary disease, remote smoking history and a diagnosis of follicular cell non-Hodgkin's lymphoma grade I, stage IV, diagnosed in May of 2017, started on 6 cycles of R-CHOP completing this course on 09/08/2017 with a partial response and followup PET scan showing persistent left axillary, retroperitoneal and mesenteric adenopathy without B symptoms. The patient was placed on q. 2-month Rituxan, but stopped this therapy in September 2018 feeling that she had not responded with treatment for her pulmonary issues and sought a second opinion at [facility] in [place]. Since that time, despite numerous attempts, her respiratory status has not improved. At this point in time, she would agree because of multiple hospitalizations and most recent back to back hospitalizations to undergo bronchoscopic evaluation and further consideration of treatment options pending this study which will be scheduled for tomorrow morning.
--- NOTE | 2019-03-22 22:43 | Hospitalist Progress Note ---
Date of Service March 22, 2019 Assessment & Plan (1) COPD exacerbation: Concern is whether or not the aspergillus in her sputum may be the culprit. She certainly has had recent immune compromised with her lymphoma and chemo, she is certainly been on steroids and antibiotics recently. The question would be whether or not her sputum culture the last time was colonization or active infection. Consulted ID. Appreciate recommendations. Also consulted pulmonary. Patient is scheduled for a bronchoscopy tomorrow. Will utilize steroids and nebulizers. will hold off antibiotics for now as patient may get samples from bronch. (2) Aspergillus: See above, question significance but certainly given that she is not getting any better, there is a lot of plausibility that the aspergillus may be a culprit here. As noted above. (3) COPD (chronic obstructive pulmonary disease): (4) Acute on chronic respiratory failure: Continue inhalers and oxygen (5) Hypertension: Follow, does not appear to be on any home meds for this. (6) Diabetes mellitus, type II: Consider checking an A1c during hospital stay. Continue insulin ma nagement with a basal bolus regimen. Follow closely. (7) Tachycardia: Likely relates to her respiratory distress. Because she was at times quite tachycardic in the ER we will initially at least start her care on telemetry to be on to follow rates and rhythms. (8) DVT prophylaxis: Shonx Spent 35 minutes of management of patient. This included chart review, discussion with patient and discussion with consultants. Subjective This is a pleasant 49 yo female, who today does not feel any improvement from yesterday. She reports that she continues to feel SOB, she continues to cough intermittently. She is not at her baseline. Patient is aware she is going for a bronchoscopy. Review of Systems Review of Systems: All systems reviewed & are unremarkable except as noted in HPI & below Physical Exam Physical Exam: She is awake and alert and oriented pleasant. HEENT: normal cephalic atraumatic mucous membranes are moist Cardio: regular without rubs murmurs or gallops Lungs: decreased breath sounds bilaterally, no rales, rhonchi, or wheezes. Good effort Abdomen: soft, nondistended, nontender, no masses, organomegaly Extremities: without cyanosis clubbing or edema no calf tenderness Skin: no rashes no pallor icterus Neuro shows cranial nerves II through XII be grossly intact gross motor and sensory intact Results & Data Vital Signs (Past 12 Hours) Vital Signs Temp Pulse Resp BP Pulse Ox 03/22/19 19:33 88 16 96 03/22/19 15:25 36.7 C 79 20 138/79 92 03/22/19 14:13 99 H 20 93 (1) Acute on chronic respiratory failure Respiratory failure complication: hypoxia Qualified Code(s): J96.21 - Acute and chronic respiratory failure with hypoxia (2) Hypertension Hypertension type: essential hypertension Qualified Code(s): I10 - Essential (primary) hypertension
[2019-03-23] MEDS: ALBUT/IPRATROP 3MG/0.5MG NEB 3 ML VIAL INH SCH ×5 (02:37→19:28)
[2019-03-23] MEDS: INSULIN ASPART 100 UNITS/ML 3 ML PEN SC SCH ×6 (04:00→20:36)
[2019-03-23 05:54] LABS: Hematocrit (blood only) 42.6 % (37-47); Hemoglobin 13.4 g/dL (12.0-16.0); Mean Corpuscular Hgb Conc 31.5 g/dL (32-36); Mean Corpuscular Volume 89.7 fL (80-100); Mean Platelet Volume 8.4 fL (7.4-10.4); Platelet Count 147 K/uL (130-400); RDW Coefficient of Variation 13.8 % (11.5-14.5); RDW Standard Deviation 44.8 fL (36.4-46.3); Red Blood Count 4.75 M/uL (4.2-5.4); White Blood Count 14.45 K/uL (4.8-10.8)
[2019-03-23] MEDS: CLOTRIMAZOLE 10 MG TROCHE BUCCAL SCH ×4 (06:29→18:28)
[2019-03-23] MEDS: methylPREDNISolone 40 MG in SYRINGE 0 ML IV SCH ×2 (06:29→18:16)
[2019-03-23 06:30] LABS: Creatinine Clr Calc Pharmacy 124.1 ml/min; Est GFR (Non-African American) 113.1
[2019-03-23] MEDS: RESTASIS EYE DROPS: ORDER AWAITING ACTION SCH ×2 (06:30→19:13)
[2019-03-23] MEDS: LACTOBACILLUS ACIDOPHILUS (FLORANEX) TAB PO SCH (07:57)
[2019-03-23] MEDS: INSULIN GLARGINE SOLOSTAR 100 UNITS/ML 3 ML PEN SC SCH ×2 (08:05→18:17)
[2019-03-23] MEDS: BUDESONIDE/FORMOTEROL FUMARATE 160/4.5 60 PUFFS/INHALER INH SCH (08:06)
[2019-03-23] MEDS ORDERED: SODIUM CHLORIDE 0.9% 1000ML 1,000 ML IV SCH (09:00)
[2019-03-23] MEDS ORDERED: INSULIN GLARGINE SOLOSTAR 100 UNITS/ML 3 ML PEN SC SCH (09:15)
--- NOTE | 2019-03-23 09:46 | Infectious Disease Progress Nt ---
Date of Service March 23, 2019 Assessment & Plan (1) COPD exacerbation: for bronch in am, await findings. allergic aspergillus, ab negative, no clinical signs of invasive disease. await bronch findings/cultures. crypto antigen negative. Subjective pt remains hemodynamically stable off of abx. aspergillus serologies negative. wbc mildly elevated today at 14 but she remains on IV steroids. For bronch this am. afebrile overnight. 03/22 serum crypto antigen negative. No micro to date this admission. Results & Data Vital Signs (Past 12 Hours) Vital Signs Temp Pulse Resp BP Pulse Ox 03/23/19 07:43 36.7 C 71 20 143/75 H 99 03/23/19 07:30 69 18 98 03/23/19 02:37 64 20 96 03/22/19 23:24 36.7 C 88 19 164/81 H 95
--- NOTE | 2019-03-23 10:09 | History & Physical Bridge Note ---
Date of Service March 23, 2019 History & Physical Bridge Note I have examined the patient, reviewed the History & Physical and in the interval since the performance of the History & Physical I have noted the following changes of clinical significance: no changes noted
--- NOTE | 2019-03-23 10:10 | Pre Anesthesia Assessment ---
Date of Service March 23, 2019 Pre Sedation Assessment Vital Signs Temp Pulse Resp BP Pulse Ox 03/23/19 07:43 36.7 C 71 20 143/75 H 99 03/23/19 07:30 69 18 98 03/23/19 02:37 64 20 96 03/22/19 23:24 36.7 C 88 19 164/81 H 95 03/22/19 19:33 88 16 96 03/22/19 15:25 36.7 C 79 20 138/79 92 03/22/19 14:13 99 H 20 93 Cardiovascular RRR, no murmur, no edema + peripheral pulses normal Respiratory + prolonged expiratory phase + wheezes Pre-Sedation Airway Assessment Smoking Status: Former smoker Hx Sleep Apnea: No Hx Difficult Intubation: No Short, Thick Neck: No Thyromental Distance: > or= 3.5 Finger Breadths Oral Cavity: + WNL Mallampati Class: II ASA: ASA3 Notes The planned sedation has been discussed with the patient. Informed Consent was obtained. I have identified the patient, determined the appropriateness of sedation and have assessed the patient immediately prior to the procedure. All medicine(s) and interventions are by my order.
--- NOTE | 2019-03-23 10:57 | Post Anesthesia Assessment ---
Date of Service March 23, 2019 Post Sedation Assessment Vital Signs Temp Pulse Pulse Resp BP Pulse Ox 03/23/19 10:48 106 H 24 130/94 96 03/23/19 10:43 106 H 24 157/116 H 97 03/23/19 10:40 113 H 24 145/80 H 97 03/23/19 10:35 94 H 20 160/103 H 98 03/23/19 10:30 87 20 133/95 97 03/23/19 10:25 94 H 20 152/99 H 98 03/23/19 10:20 90 24 138/98 98 03/23/19 07:43 36.7 C 71 20 143/75 H 99 03/23/19 07:30 69 18 98 03/23/19 02:37 64 20 96 03/22/19 23:24 36.7 C 88 19 164/81 H 95 03/22/19 19:33 88 16 96 03/22/19 15:25 36.7 C 79 20 138/79 92 03/22/19 14:13 99 H 20 93 Recovery Score Activity: Moves 4 extremities Respiration: Deep Breath/Cough Circulation: +/-20% PreAnes Value Consciousness: Arouseable (by name) Oxygen Saturation: O2 needed for >90% Post Anesthesia Score: 8 Discharge Sedation Level of Care: Phase I Post Sedation Plan On clinical assessment, the patient appears to have tolerated the sedation without complications. Patient is recovering as anticipated. Patient will continue to be monitored by nursing and may be discharged when sedation discharge criteria are met per below protocol. Upon Completions of procedure and additional 15 minutes continue every 5 minute vital signs and the P.A.R. score; then discharge to a Phase I or Fast Track to Phase II per the following guidelines: * Discharge Patient to appropriate Phase II area if PAR is 8 or greater or return to pre- procedure baseline. The post - procedure orders will be as directed. * If PAR score is less than 8 or not return to pre-procedure baseline then patient will follow Phase I monitoring till PAR is reached for Phase II. The Phase I may be done in procedure room or may call to secure a Phase I area. * If naloxone or flumazenil are used for reversal, hold in Phase I for continued monitoring from when last reversal dose was given for a minimum of 60 minutes or longer pending the nurse and/or physician discretion of patient condition before discharge to Phase II. Please call the Sedation Physician to re-evaluate and complete post-note for discharge to Phase II area. Do NOT discharge from procedure sedation or Phase 1 until post- sedation evaluation note is complete by procedure /sedation MD Sedation Discharge Instructions to be given to the patient at discharge to home.
--- NOTE | 2019-03-23 10:59 | Post Operative Brief Note ---
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 I was immediately available: during the entire case. Back up surgeon: was not required during procedure.
[2019-03-23] MEDS ORDERED: LEVALBUTEROL HCL 1.25 MG/3 ML NEB NEB STA (11:04)
[2019-03-23] MEDS ORDERED: OXYMETAZOLINE 0.05% 30 ML BTL ONE (11:04)
[2019-03-23] MEDS ORDERED: fentaNYL citrate 100 MCG/2 ML VIAL IV ONE (11:04)
[2019-03-23] MEDS ORDERED: MIDAZOLAM HCL 1 MG/ML 2ML VIAL IV STA (11:04)
[2019-03-23] MEDS ORDERED: LIDOCAINE MPF 4% LOCAL INJ 5 ML AMP INJ SCH (11:15)
[2019-03-23 12:24] LABS: Pregnancy Test, Serum Negative (Negative)
[2019-03-23] MEDS: VORICONAZOLE 300 MG in 0.9 % SODIUM CHLORIDE 70 ML IV SCH ×2 (12:37→23:44)
--- NOTE | 2019-03-23 15:28 | Pharmacy Report ---
Pharmacy Glycemic Short Note 2 - Date of Service March 23, 2019 - Glycemic Short BSG Results (Last 24 hours): 03/22/19 03/22/19 03/22/19 16:33 19:57 23:58 POC Glucose 141 H 106 H 209 H 03/23/19 03/23/19 03/23/19 03:55 07:58 12:21 POC Glucose 167 H 100 H 196 H Date of Consult: 03/21/19 Consulted by: Dr. Lantigua OUTPATIENT ANTIDIABETIC REGIMEN: * Basaglar 5 units SQ HS * NPH 25 units SQ daily * Novolog 10 units SQ QID ASSESSMENT: 03/23: * Patient received total of 96 units of insulin yesterday, 40 units of which was basal Lantus and rest was bolus Novolog. * She was ordered to be NPO overnight and this AM for Bronch today. * Fasting BSG = 100, Novolog was not given. Additionally patient also refused to take her Lantus dose since she was afraid of going low. I talked to her and convinced her to take 10 units of Lantus this AM since she is on Solu Medrol 40 mg IV q12h which can elevate her BSGs. She agreed to take 10 units of Lantus. * Diet was resumed with lunch, BSG eliel to 196. Novolog parameters of 15 and 5 covered her well last night. Therefore, these were continued. * Since patient only received 10 units of Lantus this AM, PM Lantus dose was moved up to dinner today with higher doses per BSGs based on a scale. PLAN FOR INPATIENT GLYCEMIC CONTROL: * Basal insulin - 10 units this AM, then increased with dinner based on scale as follows: * BSG < 120 - 20 units * BSG 120-180 - 25 units * BSG >180 - 30 units * Bolus insulin - continued * NovoLog per scale ACHS * Goal Range: Low 110 mg/dL - High 140 mg/dL * Correction Factor: 15mg/dL/unit * Nutritional / Prandial insulin per carb ratio of 1 unit per 5 grams CHO consumed PLAN FOR DISCHARGE: * HbA1c = 7.5% on 02/10/19 indicates not optimally controlled diabetes in this 49 y/o patient. * Recommend increasing home Basaglar dosing to 10 units every evening and titrate per outpatient provider as long as patient is not reporting hypoglycemia at home.
[2019-03-23] MEDS: guaiFENesin SUGAR FREE 100 MG/5 ML UDC PO PRN ×2 (15:47→22:16)
[2019-03-23] MEDS: ACETAMINOPHEN 325 MG TAB PO PRN ×2 (15:57→20:38)
[2019-03-23] MEDS: ARFORMOTEROL TART 15MCG/2ML VIAL INH SCH (19:03)
[2019-03-23] MEDS: SODIUM CHLOR 7% 4 ML NEB INH SCH (19:14)
[2019-03-23] MEDS: ENOXAPARIN INJ 40 MG/0.4 ML SYR SQ SCH ×2 (20:35→20:40)
--- NOTE | 2019-03-23 23:06 | Hospitalist Progress Note ---
Date of Service March 23, 2019 Assessment & Plan (1) COPD exacerbation: Concern is whether or not the aspergillus in her sputum may be the culprit. She certainly has had recent immune compromised with her lymphoma and chemo, she is certainly been on steroids and antibiotics recently. The question would be whether or not her sputum culture the last time was colonization or active infection. Consulted ID. Appreciate recommendations. Also consulted pulmonary. Patient had a bronchoscopy today Will utilize steroids and nebulizers. Started voriconazole. (2) Aspergillus: See above, question significance but certainly given that she is not getting any better, there is a lot of plausibility that the aspergillus may be a culprit here. As noted above. (3) COPD (chronic obstructive pulmonary disease): (4) Acute on chronic respiratory failure: Continue inhalers and oxygen (5) Hypertension: Follow, does not appear to be on any home meds for this. (6) Diabetes mellitus, type II: Consider checking an A1c during hospital stay. Continue insulin management with a basal bolus regimen. Follow closely. (7) Tachycardia: Likely relates to her respiratory distress. Because she was at times quite tachycardic in the ER we will initially at least start her care on telemetry to be on to follow rates and rhythms. (8) DVT prophylaxis: Lovenox Spent 35 minutes of management of patient. This included long discussion with patient regarding mold and aspergillus. Also included discussion with consultants. Subjective 49 yo female reports feeling about the same after the bronchoscopy. She explains that she wished she was feeling better sooner. Patient is happy that she is being treated empirically. She reports that she continues to have violent coughs that are non productive. Patient denies fever, chill,s nausea, vomiting. Review of Systems Review of Systems: All systems reviewed & are unremarkable except as noted in HPI & below Physical Exam Physical Exam: She is awake and alert and oriented pleasant. HEENT: normal cephalic atraumatic mucous membranes are moist Cardio: regular without rubs murmurs or gallops Lungs: decreased breath sounds bilaterally, no rales, rhonchi, or wheezes. Good effort Results & Data Vital Signs (Past 12 Hours) Vital Signs Temp Pulse Resp BP Pulse Ox 03/23/19 22:09 36.8 C 86 20 128/73 95 03/23/19 19:18 103 H 16 96 03/23/19 15:18 36.6 C 96 H 22 110/67 93 03/23/19 13:53 102 H 18 93 (1) Acute on chronic respiratory failure Respiratory failure complication: hypoxia Qualified Code(s): J96.21 - Acute and chronic respiratory failure with hypoxia (2) Hypertension Hypertension type: essential hypertension Qualified Code(s): I10 - Essential (primary) hypertension
[2019-03-24] MEDS: ALBUT/IPRATROP 3MG/0.5MG NEB 3 ML VIAL INH SCH ×4 (01:47→21:35)
[2019-03-24] MEDS ORDERED: INSULIN ASPART 100 UNITS/ML 3 ML PEN SC SCH (02:00)
[2019-03-24] MEDS: ACETAMINOPHEN 325 MG TAB PO PRN ×3 (02:55→22:24)
[2019-03-24] MEDS: guaiFENesin SUGAR FREE 100 MG/5 ML UDC PO PRN ×3 (04:26→22:24)
[2019-03-24] MEDS: RESTASIS EYE DROPS: ORDER AWAITING ACTION SCH ×2 (06:00→18:15)
[2019-03-24] MEDS: CLOTRIMAZOLE 10 MG TROCHE BUCCAL SCH ×4 (06:09→18:15)
[2019-03-24] MEDS: methylPREDNISolone 40 MG in SYRINGE 0 ML IV SCH ×2 (06:09→18:14)
[2019-03-24] MEDS: ARFORMOTEROL TART 15MCG/2ML VIAL INH SCH ×2 (07:04→19:02)
[2019-03-24] MEDS: SODIUM CHLOR 7% 4 ML NEB INH SCH ×2 (07:04→21:35)
--- NOTE | 2019-03-24 08:07 | Operative Report ---
DATE OF OPERATION: 03/23/2019 PROCEDURE: Fiberoptic bronchoscopy with bronchoalveolar lavage. REASON FOR PROCEDURE: COPD/rule out invasive Aspergillus infection versus ABPA versus other etiology with ongoing persistent symptomatology. ANESTHESIA PREOPERATIVELY: None. ANESTHESIA DURING PROCEDURE: IV Versed 5 mg, IV fentanyl 50 mcg, 20 mL 2% Xylocaine spray (without preservative) above and below the cords. DESCRIPTION OF PROCEDURE: Moderate conscious sedation was utilized, begun at 1036 and completed at 1048. Fiberoptic bronchoscope was inserted into the left naris with minimal difficulty and passed to the level of the true vocal cords. The cords appear to approximate normally with phonation without evidence of lesions or paralysis. The area was anesthetized with 2% Xylocaine spray and the scope was introduced in the trachea and right and left tracheobronchial tree. The sugey was sharp. Immediately visible was thick mucoviscous and mucopurulent secretion involving virtually all lobar segments of the right tracheobronchial tree. The right upper lobe at the apical posterior and anterior segments, bronchus intermedius, right middle lobe at the medial and lateral segments, and all basilar segments of right lower lobe were found to be free of endobronchial lesions, but teaming with copious mucoviscous and mucopurulent secretion. At some points, there were whitish plaques visible throughout the right tracheobronchial tree that appeared to be insinuated into the bronchial mucosa that were not able to be lavaged until clear. Endoscopic dynamic airway collapse or EDAC was seen involving the right tracheobronchial tree in a significant fashion. There was severe erosive and inflammatory mucosal change seen throughout the right tracheobronchial tree with no visible endobronchial lesions seen. Each lobar segment was lavaged with normosol and the aspirate sent for appropriate studies. Left tracheobronchial tree showed similar findings with no endobronchial lesions and there was no evidence for EDAC involving the left tracheobronchial tree. Left upper lobe at the lingula subdivision and the subsegmental bronchi as well as the segmental and subsegmental bronchi of the left lower lobe were copiously lavaged with normosol and the aspirate also sent for appropriate analysis. No brushings or biopsies were attempted. No bleeding was encountered. The procedure was terminated. The patient appeared hemodynamically stable, no signs of respiratory compromise, and was transferred back to the medical floor hemodynamically stable. The patient was given a nebulizer treatment with Xopenex 1.25 mg prior to transfer. Will await microbiological and cytologic examination of the bronchial washings. I attest to the content of the Intraoperative Record and any orders documented therein. Any exception s are noted below.
[2019-03-24] MEDS: LACTOBACILLUS ACIDOPHILUS (FLORANEX) TAB PO SCH (08:13)
[2019-03-24] MEDS: INSULIN ASPART 100 UNITS/ML 3 ML PEN SC SCH ×4 (08:48→21:20)
[2019-03-24] MEDS: INSULIN GLARGINE SOLOSTAR 100 UNITS/ML 3 ML PEN SC SCH ×2 (08:49→21:23)
--- NOTE | 2019-03-24 10:38 | Progress Note ---
DATE: 03/24/2019 PULMONARY MEDICINE PROGRESS NOTE Chart reviewed and the patient examined. SUBJECTIVE: The patient feels somewhat better since bronchoscopy with BAL. The cough is looser, and she is able to expectorate. She had problems with a particular neb treatment stating it made her chest tight last evening. This may have been the Brovana solution versus the 7% normal saline b.i.d. to her neb regimen. In any event, she was started on IV voriconazole pending culture results, and we will adjust treatment plan pending the culture results and additional studies ordered. OBJECTIVE: CURRENT VITAL SIGNS: Blood pressure 131/76, pulse 88 and regular, respiratory rate 18, temperature 36.7, O2 sat 93% on current low flow O2. SKIN: Without lesion. HEENT: Atraumatic. LUNGS: Improved aeration at the bases, scattered wheezes. CARDIAC: Unchanged. ABDOMEN: Soft. EXTREMITIES: No pedal edema, clubbing, or cyanosis. NEUROLOGIC: Intact. Cultures are all pending at the time of this dictation. Serologies as well are pending. 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 We will await the rest of the lab data. The patient has been started on IV voriconazole and will convert to oral.
[2019-03-24] MEDS: VORICONAZOLE 300 MG in 0.9 % SODIUM CHLORIDE 70 ML IV SCH (11:20)
--- NOTE | 2019-03-24 12:11 | Hospitalist Progress Note ---
Date of Service March 24, 2019 Assessment & Plan (1) COPD exacerbation: Concern is whether or not the aspergillus in her sputum may be the culprit. She certainly has had recent immune compromised with her lymphoma and chemo, she is certainly been on steroids and antibiotics recently. The question would be whether or not her sputum culture the last time was colonization or active infection. Consulted ID. Appreciate recommendations. Also consulted pulmonary. Patient had a bronchoscopy Will utilize steroids and nebulizers. Started voriconazole on 03/23 Patient concern over bruise in abdomen. It appears this is likely from severe coughing especially since patient has a superficial vein on her abdomen. (2) Aspergillus: See above, question significance but certainly given that she is not getting any better, there is a lot of plausibility that the aspergillus may be a culprit here. As noted above. (3) COPD (chronic obstructive pulmonary disease): (4) Acute on chronic respiratory failure: Continue inhalers and oxygen (5) Hypertension: Follow, does not appear to be on any home meds for this. (6) Diabetes mellitus, type II: Consider checking an A1c during hospital stay. Continue insulin management with a basal bolus regimen. Follow closely. (7) Tachycardia: Likely relates to her respiratory distress. Because she was at times quite tachycardic in the ER we will initially at least start her care on telemetry to be on to follow rates and rhythms. (8) DVT prophylaxis: Shonx Spent 35 minutes of management of patient. This included long discussion with patient regarding her bruise and treatment of her lung condition. Subjective Patient reports that she continues have violent coughs. She noticed a bruise also below belly buttom. Interview was done with nurse, Dr. Washington by my side as well as administration. Dr. Washington explained that it appears she has a violent cough and dilated veins in her abdomen. It is very likely that her coughing caused her vein to perhaps bleed. Explained to patient that coughing can also cause rib fractures. Review of Systems Review of Systems: All systems reviewed & are unremarkable except as noted in HPI & below Physical Exam Physical Exam: She is awake and alert and oriented pleasant. HEENT: normal cephalic atraumatic mucous membranes are moist Cardio: regular without rubs murmurs or gallops Lungs: decreased breath sounds bilaterally, no rales, rhonchi, or wheezes. Good effort Abdomen: soft, nondistended, nontender, no masses, organomegaly, varciose vein noted in lower abdomen with bruising around vein. Appears old) Extremities: without cyanosis clubbing or edema no calf tenderness Skin: no rashes no pallor icterus Neuro shows cranial nerves II through XII be grossly intact gross motor and sensory intact Results & Data Vital Signs (Past 12 Hours) Vital Signs Temp Pulse Resp BP Pulse Ox 03/24/19 07:53 36.7 C 88 18 131/76 93 03/24/19 07:07 73 18 96 03/24/19 04:30 36.7 C 94 H 20 122/76 94 03/24/19 01:47 84 18 92 (1) Acute on chronic respiratory failure Respiratory failure complication: hypoxia Qualified Code(s): J96.21 - Acute and chronic respiratory failure with hypoxia (2) Hypertension Hypertension type: essential hypertension Qualified Code(s): I10 - Essential (primary) hypertension
--- NOTE | 2019-03-24 14:16 | Infectious Disease Progress Nt ---
Date of Service March 24, 2019 Assessment & Plan (1) COPD exacerbation: for bronch in am, await findings. allergic aspergillus, ab negative, no clinical signs of invasive disease. await bronch findings/cultures. crypto antigen negative. now on vori, consider addition of levaquin po pending final sputum culture due to gnr on gram stain and recent culture growing Acinetobacter. will follow. Subjective s/p bronch yesterday, tolerated well. remains afebrile. on voriconazole IV post bronch. routine culture pending, many wbc, many gnr seen on gram stain, light nml isidoro growing so far only. fungal stain negative, culture pending, AFB stain/culture pending. tolerating vori. wbc 14, remains on IV steroids. afebrile. Results & Data Vital Signs (Past 12 Hours) Vital Signs Temp Pulse Resp BP Pulse Ox 03/24/19 13:59 94 H 18 95 03/24/19 07:53 36.7 C 88 18 131/76 93 03/24/19 07:07 73 18 96 03/24/19 04:30 36.7 C 94 H 20 122/76 94 Laboratory Results Microbiology 03/23/19 10:40 Bronch Washings Combined Gram Stain - Final 03/23/19 10:40 Bronch Washings Combined Bronchoalveolar Lavage Culture - Preliminary Light normal isidoro present, final report to follow. 03/23/19 10:40 Bronch Washings Combined Acid Fast Bacilli Smear - Final 03/23/19 10:40 Bronch Washings Combined Fungal Smear - Final 03/22/19 14:05 Blood Cryptococcal Antigen - Final
--- NOTE | 2019-03-24 14:22 | Pharmacy Report ---
Pharmacy Glycemic Short Note 2 - Date of Service March 24, 2019 - Glycemic Short BSG Results (Last 24 hours): 03/23/19 03/23/19 03/24/19 17:37 20:16 02:09 POC Glucose 227 H 103 H 166 H 03/24/19 03/24/19 08:09 12:08 POC Glucose 192 H 302 H* Date of Consult: 03/21/19 Consulted by: Dr. Lantigua OUTPATIENT ANTIDIABETIC REGIMEN: * Basaglar 5 units SQ HS * NPH 25 units SQ daily * Novolog 10 units SQ QID ASSESSMENT: 03/24: * Patient received total 71 units of insulin yesterday which included 40 units of basal Lantus and rest was Novolog bolus. * Fasting BSG = 192 this AM. Overnight a 2 AM check was 166, patient refused coverage for this. * Patient was unhappy with the amount of breakfast that was served this morning and asked for more food which she received. Nurse called me with lunch BSG = 302 today. I suspect she ate more than what is documented under her Novolog order and possibly could have snacked as well since she seemed to be very hungry this morning and requested more food. Hence I did not order any additional insulin other than the current Novolog. * HS Lantus dose is ordered based on a scale again for tonight to total a max of either 40 or 45 units today. 03/23: * Patient received total of 96 units of insulin yesterday, 40 units of which was basal Lantus and rest was bolus Novolog. * She was ordered to be NPO overnight and this AM for Bronch today. * Fasting BSG = 100, Novolog was not given. Additionally patient also refused to take her Lantus dose since she was afraid of going low. I talked to her and convinced her to take 10 units of Lantus this AM since she is on Solu Medrol 40 mg IV q12h which can elevate her BSGs. She agreed to take 10 units of Lantus. * Diet was resumed with lunch, BSG eliel to 196. Novolog parameters of 15 and 5 covered her well last night. Therefore, these were continued. * Since patient only received 10 units of Lantus this AM, PM Lantus dose was moved up to dinner today with higher doses per BSGs based on a scale. PLAN FOR INPATIENT GLYCEMIC CONTROL: * Basal insulin - 25 units this AM, then with dinner based on scale as follows: * BSG < 160 - 15 units * BSG 160 or greater - 20 units * Bolus insulin - continued * NovoLog per scale ACHS * Goal Range: Low 110 mg/dL - High 140 mg/dL * Correction Factor: 15mg/dL/unit * Nutritional / Prandial insulin per carb ratio of 1 unit per 5 grams CHO consumed PLAN FOR DISCHARGE: * HbA1c = 7.5% on 02/10/19 indicates not optimally controlled diabetes in this 49 y/o patient. * Recommend increasing home Basaglar dosing to 10 units every evening and titrate per outpatient provider as long as patient is not reporting hypoglycemia at home.
--- NOTE | 2019-03-24 14:35 | Progress Note ---
DATE: 03/24/2019 PULMONARY MEDICINE PROGRESS NOTE TIME: At 1201. I met with the patient at the request of Dr. Kishore Lantigua. The patient earlier that morning during my morning rounds had mentioned that she felt bruised in the lower abdominal pelvic area and wanted to know if a device had been placed there or in moving the patient from the gurney to the x-ray table, whether pressure had been put in that region to cause "bruising." I checked with nursing, subQ Lovenox had not been administered. I did not examine the patient at that time, but then did come back into the room while Laura Contreras from [facility] was in attendance. The patient had questions about how the bruising could have occurred during or after the bronchoscopy. In addition to myself, Dr. Lantigua and Rachel Gann and Laura Contreras, we addressed the concern and examined her with all those in attendance. The patient had previous surgery for in the lower abdominal and upper pelvic area and the scar from that surgery was visible. There was some mild ecchymosis in that region of undetermined etiology. She was not tender and there were no other signs and symptoms to suggest any significant trauma, etc. I had not examined that area this morning and even during my initial consultation. She states she thought the bruising was new. We went over the process that she was brought down from her medical bed to the x-ray suite where bronchoscopy has been carried out. She was transferred gently from the bed to the x-ray table. The procedure was carried out uneventfully, although the patient did exhibit significant and somewhat violent paroxysms of coughing, no doubt from her underlying intercurrent respiratory infection. Following completion of the procedure, she was hemodynamically stable with no signs of respiratory compromise. She was transferred to the [facility] utilizing the draw sheet and gently placed on the gurney. I do not recall any trauma to that area and also in attendance was respiratory therapy and 2 RNs who assisted me with conscious sedation in the procedure. Pictures will be taken of that area both by the patient and at my request to Laura Contreras and we may have a child support specialist examine her as well. It is certainly possible that with these violent paroxysms of coughing, she may have developed an ecchymosis in that area, but otherwise it is not clear to me as to why the ecchymoses are present. Percussion and postural drainage has been ordered but to my knowledge, she has only received a flutter valve and not the vibration vest at this point in time nor would the vest be utilized in that region.
[2019-03-24] MEDS: ENOXAPARIN INJ 40 MG/0.4 ML SYR SQ SCH (21:24)
[2019-03-24] MEDS: VORICONAZOLE 200 MG TABLET PO SCH (21:49)
[2019-03-25] MEDS: ALBUT/IPRATROP 3MG/0.5MG NEB 3 ML VIAL INH SCH ×3 (01:41→14:27)
[2019-03-25] MEDS: guaiFENesin SUGAR FREE 100 MG/5 ML UDC PO PRN ×2 (04:32→10:20)
[2019-03-25] MEDS: methylPREDNISolone 40 MG in SYRINGE 0 ML IV SCH (05:58)
[2019-03-25] MEDS: RESTASIS EYE DROPS: ORDER AWAITING ACTION SCH (06:00)
[2019-03-25] MEDS: CLOTRIMAZOLE 10 MG TROCHE BUCCAL SCH ×3 (06:01→14:33)
[2019-03-25] MEDS: SODIUM CHLOR 7% 4 ML NEB INH SCH (07:22)
[2019-03-25] MEDS: ARFORMOTEROL TART 15MCG/2ML VIAL INH SCH (07:22)
[2019-03-25] MEDS: VORICONAZOLE 200 MG TABLET PO SCH (08:23)
[2019-03-25] MEDS: INSULIN ASPART 100 UNITS/ML 3 ML PEN SC SCH ×2 (08:23→12:49)
[2019-03-25] MEDS: LACTOBACILLUS ACIDOPHILUS (FLORANEX) TAB PO SCH (08:23)
[2019-03-25] MEDS: INSULIN GLARGINE SOLOSTAR 100 UNITS/ML 3 ML PEN SC SCH (08:24)
[2019-03-25] MEDS: ACETAMINOPHEN 325 MG TAB PO PRN ×2 (09:36→15:16)
--- NOTE | 2019-03-25 10:41 | Infectious Disease Progress Nt ---
Date of Service March 25, 2019 Assessment & Plan (1) COPD exacerbation: continue vori pending culture results. continue pulm toilet, nebs etc as scheduled. Subjective s/p bronch, cultures so far with normal isidoro only. fungal and AFB pending. on po vori, tolerating well. afebrile. no new am labs. remains on steroids. Results & Data Vital Signs (Past 12 Hours) Vital Signs Temp Pulse Resp BP Pulse Ox 03/25/19 07:22 87 18 92 03/25/19 07:00 36.6 C 68 20 164/95 H 97 03/25/19 01:42 84 20 96 Laboratory Results Microbiology 03/23/19 10:40 Bronch Washings Combined Gram Stain - Final 03/23/19 10:40 Bronch Washings Combined Bronchoalveolar Lavage Culture - Preliminary Light normal isidoro present, final report to follow. 03/23/19 10:40 Bronch Washings Combined Acid Fast Bacilli Smear - Final 03/23/19 10:40 Bronch Washings Combined Fungal Smear - Final 03/22/19 14:05 Blood Cryptococcal Antigen - Final
--- NOTE | 2019-03-25 13:43 | Pharmacy Report ---
Pharmacy Glycemic Short Note 2 - Date of Service March 25, 2019 - Glycemic Short BSG Results (Last 24 hours): 03/24/19 03/24/19 03/25/19 17:25 20:51 08:02 POC Glucose 86 130 H 152 H 03/25/19 12:11 POC Glucose 265 H Date of Consult: 03/21/19 Consulted by: Dr. Lantigua OUTPATIENT ANTIDIABETIC REGIMEN: * Basaglar 5 units SQ HS * NPH 25 units SQ daily * Novolog 10 units SQ QID ASSESSMENT: 03/25: * Patient received total 90 units of insulin yesterday, 40 units of which was basal Lantus and 50 units from Novolog (correction + prandial). She continues to get Solu medrol 40 mg IV q12h which can contribute to post-prandial steroid induced hyperglycemia. * Fasting BSG today = 152 which is close to being within goal range. Lunch BSG continue to be high and I suspect that she snacks between her breakfast and lunch since she complained yesterday of not getting enough food at breakfast. Dinner and bedtime BSGs were either below goal or at goal yesterday. Will therefore continue current Lantus and Novolog parameters. PLAN FOR INPATIENT GLYCEMIC CONTROL: * Basal insulin - continue 25 units QAM, 15 units QPM * Bolus insulin - continued * NovoLog per scale ACHS * Goal Range: Low 110 mg/dL - High 140 mg/dL * Correction Factor: 15mg/dL/unit * Nutritional / Prandial insulin per carb ratio of 1 unit per 5 grams CHO consumed PLAN FOR DISCHARGE: * HbA1c = 7.5% on 02/10/19 indicates not optimally controlled diabetes in this 49 y/o patient. * Recommend increasing home Basaglar dosing to 10 units every evening and titrate per outpatient provider as long as patient is not reporting hypoglycemia at home.
--- NOTE | 2019-03-25 17:01 | Progress Note ---
DATE: 03/25/2019 PULMONARY MEDICINE PROGRESS NOTE Chart reviewed and the patient examined. SUBJECTIVE: The patient was evaluated with 2 nurses in attendance with me Rachel Gann and a male nurse/Jens. The patient stated that she wanted to go home. She felt although her cough can be problematic that she was bringing up additional material with the use of the vibration vest and flutter valve along with the vigorous pulmonary toilet and treatment that we have outlined. She feels she can recover at home and wishes to be with her family. OBJECTIVE: CURRENT VITAL SIGNS: Blood pressure 164/95, pulse 87 and regular, respiratory rate 18, temperature 36.6, O2 sat 92% on 3 liters. SKIN: Without lesion. Abdominal pannus was not examined this morning. HEENT: Atraumatic, normocephalic. PERRLA. LUNGS: Scattered rhonchi, but distant P and A, but much clearer than previous examination. She is able to make a full inspiratory effort without triggering severe paroxysms of coughing. CARDIAC: Regular rate and rhythm. I do not appreciate a gallop. ABDOMEN: Soft. EXTREMITIES: Not examined. NEUROLOGICAL: Cranial nerves II-XII grossly intact. No lateralizing signs. Cultures are still pending from the bronchial washings. The patient was started on IV voriconazole switch to p.o. voriconazole. The last white count was 14,000. H and H was stable. Glucose levels have come down into the 130-152 range. Serologic data is still pending. OVERALL ASSESSMENT: A 49-year-old white female with remote smoking history and chronic obstructive pulmonary disease as well as a remote history of non-Hodgkin's lymphoma, admitted with worsening respiratory status and previous infection secondary to Acinetobacter as well as the presence of rare Aspergillus fumigatus colonies. This was from a sputum C and S. At this point in time, I believe continued empiric treatment with voriconazole 200 mg p.o. b.i.d. for at least 3-6 weeks be carried out while we await final culture results and studies. I believe the patient should be placed on a 16-day prednisone taper at 40 mg daily for 2 days, 35 mg daily for 2 days and so forth till off. She should be continued on her oxygen at 3 liters continually as before. I would have her use a nebulizer with albuterol or Xopenex solution every 4 hours as needed and would hold on her Symbicort inhaler or Trelegy unit. I think the use of 7% normal saline b.i.d. with support of pulmonary toilet has been helpful, if she can tolerate the use of Brovana solution 15 mg per 2 mL on a daily basis, this I believe also would be helpful. She has been outfitted with a flutter valve and I think we might be able to order a vibration vest for her use as an outpatient. I will run that through my office to see if we can start treatment for this. 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 We will ask Malika Montes in our clinic to see patient in 2 weeks' time for followup. KRISTAL
[2019-03-25] MEDS ORDERED: INSULIN GLARGINE SOLOSTAR 100 UNITS/ML 3 ML PEN SC SCH (21:00)
[2019-03-26 11:56] LABS: HSV Type 1 DNA Not Detected (Not Detected); HSV Type 2 DNA Not Detected (Not Detected)
[2019-03-26 18:53] LABS: Fungitell (1-3)-B-D-Glucan <31 pg/mL
[2019-03-27 21:28] LABS: Aspergillus Ag Index 0.18 (<0.50); Aspergillus Antigen, Serum Not Detected (Not Detected); Aspergillus Flavus Negative (Negative); Aspergillus Niger Negative (Negative)
[2019-03-27 22:33] LABS: Aureobasidium pullulans IgG 4.7 mcg/mL (< 13.6); Saccharopolyspora rectivir Ab Not detected (Not detected); Thermoactinomyces candidus Ab Not detected (Not detected); Thermoactinomyces sacchari Ab Not detected (Not detected)
--- NOTE | 2019-03-29 10:49 | Discharge Summary ---
Date of Service March 25, 2019 Admission HPI Per Admitting Provider Patient notes she is just really never felt better during any of the prior admissions or now. She came back because she is sick of feeling short of breath. She notes that she just generally feels like she is struggling. There was not any real acute worsening, but she does have an ongoing cough chest pain with the cough shortness of breath and feeling like she is just generally failing. No objective fever which measured but she does feel feverish. No rigors. She has cough with some sputum. Principal Diagnosis COPD exacerbation Discharge Exam She is awake and alert and oriented pleasant. HEENT: normal cephalic atraumatic mucous membranes are moist Cardio: regular without rubs murmurs or gallops Lungs: decreased breath sounds bilaterally, no rales, rhonchi, or wheezes. Good effort Abdomen: soft, nondistended, nontender, no masses, organomegaly, varciose vein noted in lower abdomen with small area of bruising around vein. Appears old) Extremities: without cyanosis clubbing or edema no calf tenderness Skin: no rashes no pallor icterus Neuro shows cranial nerves II through XII be grossly intact gross motor and sensory intact Discharge Data Allergies Allergy/AdvReac Type Severity Reaction Status Date / Time cyclobenzaprine Allergy Intermediate HALLUCINATI Verified 03/20/19 14:38 ON lidocaine Allergy Intermediate ITCHING Verified 03/20/19 14:38 AND BURNING ON CONTACT nystatin Allergy Intermediate ITCHING Verified 03/20/19 14:38 AND BURNING cefaclor Allergy Mild SICK TO Verified 03/20/19 14:38 STOMACH morphine Allergy Mild VOMITTING Verified 03/20/19 14:38 Consultations 03/20/19 16:30 ED Decision to Admit Stat 03/20/19 18:36 Consult Infectious Diseases Stat 03/21/19 08:20 Consult Pulmonology Routine Procedures Performed Operation Date: 03/23/19 10:00 Actual Procedures p Bronchoscopy (Bilateral) - Alvin Washington MD Hospital Course (1) COPD exacerbation: Concern is whether or not the aspergillus in her sputum may be the faith rit. She certainly has had recent immune compromised with her lymphoma and chemo, she is certainly been on steroids and antibiotics recently. The question would be whether or not her sputum culture the last time was colonization or active infection. Consulted ID. Appreciate recommendations. Also consulted pulmonary. Patient had a bronchoscopy Will utilize steroids and nebulizers. Started voriconazole on 03/23 Appreciate input from pulmonary A 49-year-old white female with remote smoking history and chronic obstructive pulmonary disease as well as a remote history of non-Hodgkin's lymphoma, admitted with worsening respiratory status and previous infection secondary to Acinetobacter as well as the presence of rare Aspergillus fumigatus colonies. This was from a sputum C and S. At this point in time, I believe continued empiric treatment with voriconazole 200 mg p.o. b.i.d. for at least 3-6 weeks be carried out while we await final culture results and studies. She should be continued on her oxygen at 3 liters continually as before. I would have her use a nebulizer with albuterol or Xopenex solution every 4 hours as needed and would hold on her Symbicort inhaler or Trelegy unit. I think the use of 7% normal saline b.i.d. with support of pulmonary toilet has been helpful, if she can tolerate the use of Brovana solution 15 mg per 2 mL on a daily basis, this I believe also would be helpful. She has been outfitted with a flutter valve and I think we might be able to order a vibration vest for her use as an outpatient. I will run that through my office to see if we can start treatment for this. 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 We will ask Malika Montes in our clinic to see patient in 2 weeks' time for followup. (2) Aspergillus: See above, question significance but certainly given that she is not getting any better, there is a lot of plausibility that the aspergillus may be a culprit here. As noted above. (3) COPD (chronic obstructive pulmonary disease): (4) Acute on chronic respiratory failure: Continue inhalers and oxygen (5) Hypertension: Follow, does not appear to be on any home meds for this. (6) Diabetes mellitus, type II: Consider checking an A1c during hospital stay. Continue insulin management with a basal bolus regimen. Follow closely. (7) Tachycardia: Likely relates to her respiratory distress. Because she was at times quite tachycardic in the ER we will initially at least start her care on telemetry to be on to follow rates and rhythms. (8) DVT prophylaxis: Lovenox Total Time Total Time Spent Total Time Spent (In Minutes): 35 Total Time Includes: Examination of the Patient, Discharge Planning and Medication Reconciliation Discharge Plan Discharge Items Patient Disposition: Home - Home Health Services Reason For Visit: SOB Discharge Diagnosis: SOB Discharge Goals: Decrease discomfort Activity: Resume your previous activity Non-emergency contact: Primary Care Provider Call non-emergency contact if: you have any medication questions Follow-up/Referrals: Gregory Christy [Primary Care Provider] - Diet: Carb Consistent or DM2 and Heart Healthy Addtl Provider Instructions: Dont take symbicort as your will be taking brovana neb at home. Will schedule a followup with Dr. Washington and PCP in 1-2 weeks. Prescriptions: New voriconazole [Vfend] 200 mg Tablet 200 mg PO BID Qty: 37 RF: 0 prednisone 10 mg tablet 10 mg PO DAILY Qty: 32 RF: 0 Brovana 15 mcg/2 mL Solution For Nebulization 15 mcg inhalation BIDR Qty: 0 RF: 0 Continued Novolog U-100 Insulin aspart 100 unit/mL Solution 10 units SUBCUT QID RF: 0 Raw Honey 1 tsp PO DAILY RF: 0 clotrimazole 10 mg Dayday 1 peter PO DIRECTED RF: 0 albuterol sulfate 2.5 mg /3 mL (0.083 %) Solution For Nebulization 2.5 mg INHALATION Q6 RF: 0 ipratropium bromide 0.02 % Solution 0.5 mg INHALATION Q6H RF: 0 Restasis 0.05 % Dropperette 1 drp OPHTHALMIC (EYE) Q12H RF: 0 Symbicort 160-4.5 mcg/actuation Hfa Aerosol Inhaler 2 puff INHALATION BID RF: 0 Probiotic 5 billion cell Capsule, Sprinkle 3 cap PO DAILY RF: 0 Novolin N NPH U-100 Insulin 100 unit/mL Suspension 25 unit subcut DAILY Qty: 10 RF: 0 Basaglar KwikPen U-100 Insulin 100 unit/mL (3 mL) Insulin Pen 5 unit SUBCUT HS Qty: 0 RF: 0 Discontinued prednisone 20 mg tablet 40 mg PO DAILY Qty: 28 RF: 0 Stand-Alone Forms: [facility] Discharge Orders: Discharge Order (Routine); Ordered 03/25/19 Ordered By: Kishore Lantigua Admission Data Admit Date/Time: 03/22/19 16:43 Attending Provider: Kishore Lantigua Admit Provider: Basil Thomson Primary Care Provider: Gregory Christy Other Providers: Luis Alberto Khoury ; Geovanny Saldana ; Alvin Washington Service: Medical Other Interventions: Discharge Summary Assessment (RN) Last Done: 03/25/19 15:02 DC Date/Time DO NOT enter until pt leaves facility: 03/25/19 16:26
== END 2019-03-25 16:26 | disposition home health service (06) | DRG 166 ==
LOC: ED 13:54 → 2S 13:54 → SUATTDRO 17:20 → 2S 18:00 → 4W 03-21 16:44

== ENCOUNTER 2024-11-05 11:12 | Inpatient (IN) ==
--- NOTE | 2024-11-05 11:24 | Emergency Department Note ---
Impression & Plan Acute on chronic respiratory failure, Influenza A ED Provider Note CHIEF COMPLAINT: Cough, congestion HISTORY OF PRESENTING ILLNESS: This 54-year-old female patient presents to the emergency department with a real estate legal secretary for evaluation of a runny nose, nasal congestion, cough, and fever. Symptoms started 2 days ago, but getting progressively worse. The patient has a history of severe asthma/COPD and is concerned for an exacerbation. She also has a history of cardiac bypass surgery. She is on 1 L of O2 all the time at home. The patient states that she has been around a lot of sick family members recently. She started with vomiting this morning. She denies any abdominal pain. She denies any chest pain, just the shortness of breath. She denies any urinary symptoms or problems with her bowel movements. The patient was prescribed Levaquin and prednisone by her hardware supplies sales representative who just called in the script per patient. The patient took 2 doses of Levaquin, but did not take her Levaquin today because of nausea and vomiting. She has not started the prednisone yet. She has felt like she had a fever at home, but no thermometer at home. She has been using her inhalers and nebulizer treatments as prescribed. She has also been using her percussion vest to help with her breathing. However, the patient feels like her symptoms are getting progressively worse. The patient is living in [facility] at this time and is in town for a . REVIEW OF SYSTEMS: See HPI for pertinent positives and pertinent negatives. ALLERGIES: Cyclobenzaprine, lidocaine, nystatin, cefaclor, morphine MEDICATIONS: See below PAST MEDICAL HISTORY: See below PHYSICAL EXAM: Vital Signs: Vitals are noted on the nurse's note and reviewed by myself. GENERAL: Non toxic in appearance and in no acute distress. SKIN: Capillary reflex less than 2 seconds. HEAD: Normocephalic, atraumatic. EARS: Bilateral external auditory canals clear without tragus tenderness. Bilateral tympanic membranes pearly kimbrough without erythema or effusion. No mastoid tenderness bilaterally. EYES: Pupils equal round and reactive to light and accommodation. Conjunctivae without injection, sclerae without icterus. Extraocular movements intact. NOSE: Patent, turbinates inflamed with no discharge. No sinus tenderness. MOUTH: Mucous membranes moist. Airway patent, uvula midline. Pharynx is not erythematous and not edematous without exudate. Pharynx without postnasal drip. No evidence for peritonsillar abscess. NECK: Supple without nuchal rigidity. No lymphadenopathy. HEART: Tachycardic without murmurs gallops or rubs. LUNGS: Clear to auscultation bilaterally with a few scattered wheezes without rales or rhonchi. No accessory muscle use or retractions. ABDOMEN: Positive bowel sounds x 4. Normal tympanic percussion. Soft, nontender to palpation. No masses or hepatosplenomegaly. No guarding, rigidity, or rebound tenderness. No CVA tenderness. No focal RLQ or LLQ tenderness. NEURO: Patient was alert and oriented. DIFFERENTIAL DIAGNOSIS: Differential diagnosis includes URI, bronchitis, pneumonia, pneumothorax, hemothorax, PE, TX, pericarditis, myocarditis, airway obstruction, aspiration, pulmonary edema, asthma, COPD, CHF, pleurisy, metabolic acidosis, anemia, neoplasm, viral syndrome, RSV, Influenza, COVID, strep throat, pharyngitis/tonsillitis, mononucleosis, retropharyngeal abscess, peritonsillar abscess, otitis media, otitis externa, sinusitis, bronchitis, pneumonia, as well as other pathologies. ED COURSE AND MEDICAL DECISION MAKING: MEDICATIONS GIVEN: DuoNeb treatment. A total of 1 L normal saline solution bolus. Tylenol 1000 mg IV. Magnesium 1 g IV. Levaquin 750 mg IV. Solu-Medrol 40 mg IV. MONITOR: Continuous satellite project site monitor: Order was placed for continuous satellite project site monitor. Patient was placed on the satellite project site monitor and continuous pulse ox. Patient was noted to be in sinus tachycardia at an initial rate of 110 bpm per my interpretation. EKG: EKG was interpreted by myself as sinus tachycardia at 113 bpm, but no acute ST or T wave changes. INTERPRETATION OF LABS: I interpreted the labs with full lab results as below in the lab section of this note. Pertinent lab results discussed in the MDM section below. INTERPRETATION OF IMAGING: Imaging studies were interpreted by myself and read by radiology as per the imaging section of this note. Chest x-ray showed pulmonary vascular congestion without overt pulmonary edema. Bilateral hilar enlargement which may be related to pulmonary vessels. Lymphadenopathy could appear similar. Nonemergent chest CT with contrast is recommended. CHRONIC MEDICAL/SOCIAL CONDITIONS AFFECTING CARE: The patient has severe asthma and COPD on 1 L of oxygen at home. She also has a significant cardiac history including cardiac bypass surgery. CONSULTATIONS: On-call hospitalist [facility] SUMMARY: I examined the patient. The patient started with URI symptoms and a cough 2 days ago. However, the symptoms are getting progressively worse. The patient had a prescription for Levaquin and prednisone called in by her hardware supplies sales representative, but she did not start the prednisone yet. She has had 2 doses of Levaquin, but did not take her Levaquin today because she started vomiting this morning. She is normally on 1 L of oxygen at all times at home due to her severe asthma/COPD. However, the patient is still short of breath despite using this oxygen. The patient has been taking her inhalers and nebulizers as prescribed and has been using her percussion vest to help with her breathing as well. The patient denies any chest pain, only shortness of breath. She denies any abdominal pain, only the nausea and vomiting. The patient is from [facility], but is in town for a . An IV lock was placed and labs were drawn. The patient's oxygen levels were initially in the high 80s even on 1 L of oxygen by nasal cannula. Therefore, nursing initially placed her on 3 L of oxygen and was able to titrate her down to 2 L of oxygen after the DuoNeb treatment which gave the patient some improvement of her symptoms. The patient's pulse ox remained stable on 2 L of oxygen by nasal cannula, however, when the patient would turn over in bed or exert herself to move around, her oxygen would drop again to the low 90s or high 80s. The patient was initially febrile and tachycardic, but this resolved after the patient's IV Tylenol and 1 L normal saline solution bolus. Lactate and procalcitonin were normal. White blood cell count normal at 6.91. I do not suspect sepsis at this time. Hemoglobin normal at 13. Platelet count low at 115. Coags were normal. VBG was normal. Sodium slightly low at 134. Glucose 221. CMP otherwise without significant abnormalities. Magnesium low at 1.6 and she was given 1 g of magnesium IV. High-sensitivity troponin x 2 were normal. Urinalysis with 1+ ketones, 1+ glucose, 1+ protein, but no blood or infection. Respiratory BioFire was positive for influenza A. Blood cultures are pending. Chest x-ray showed pulmonary vascular congestion without overt pulmonary edema. Bilateral hilar enlargement which may be related to pulmonary vessels. Lymphadenopathy could appear similar. Nonemergent chest CT with contrast is recommended. I initially had the discussion with the patient in regards to outpatient treatment with Tamiflu and increasing her oxygen level versus inpatient treatment due to her severe pulmonary and cardiac history. The patient states that she feels a little bit better after the DuoNeb treatment, but still feels very weak and short of breath and is worried about going home. I had a meaningful discussion about this patient with Dr. Shepherd who agrees with my assessment and the treatment plan. Due to her symptoms and significant history, we feel the patient would benefit from admission and the patient is in agreement. The patient was given a dose of IV Levaquin as well as IV steroids. I spoke with the on-call hospitalist who agreed to admit the patient for further evaluation and treatment. Please refer to their dictation for further details. Tamiflu administration was deferred to the inpatient team. The patient's care was transferred in stable condition. DIAGNOSIS: Shortness of breath with acute on chronic respiratory failure secondary to influenza A Past Med/Surg History Problem List (Updated 11/05/24 @ 20:49 by Lulu Saravia PA-C) Influenza A (Acute) Aspergillus COPD exacerbation (Acute) DVT prophylaxis COPD (chronic obstructive pulmonary disease) Acute on chronic respiratory failure (Acute) Acute on chronic respiratory failure with hypoxia and hypercapnia (Acute) Hypertension Acute respiratory failure with hypoxia and hypercarbia Encounter for pre-operative examination Lymphoma (Chronic) Diabetes (Chronic) Diabetes mellitus, type II Dyspnea History of tobacco abuse Hypoxia Tachycardia Medical History (Updated 11/05/24 @ 20:49 by Lulu Saravia PA-C) Osteoarthritis Diabetes mellitus type 1 Lymphoma Dry eye Anxiety HX OF Stroke AT AGE 43 "STRESS RELATED" Cardiac murmur Hypertension Hyperlipidemia HX OF On home oxygen therapy 2L AT HS Low oxygen saturation WEARS O2 AT 2L HS (CAUSED BY CHEMO TX) Surgical History History of laparoscopy History of section X 3 History of bilateral tubal ligation Ovarian cyst REMOVED History of vascular access device PORT INSERTION (FOR CHEMO) History of tooth extraction Family History Mother Family history of diabetes mellitus Social History Smoking Status: Former smoker Second Hand Exposure: No; Do You Dip or Chew Tobacco: No; Hx Alcohol Use: No Hx Substance Use: No Preferred Language: Ukrainian Communication Ability: Effective Faceter Required: No Beliefs That Will Affect Care: None marital status: Current Living Situation: Alone Feels Safe at Home: Yes Assistive Devices: Oxygen - Continuous Allergies Allergies Allergy/AdvReac Type Severity Reaction Status Date / Time cyclobenzaprine Allergy Intermediate HALLUCINATI Verified 03/20/19 14:38 ON lidocaine Allergy Intermediate ITCHING Verified 03/20/19 14:38 AND BURNING ON CONTACT nystatin Allergy Intermediate ITCHING Verified 03/20/19 14:38 AND BURNING cefaclor Allergy Mild SICK TO Verified 03/20/19 14:38 STOMACH morphine Allergy Mild VOMITTING Verified 03/20/19 14:38 Home Meds Home Medications Medication Instructions Recorded Confirmed Raw Honey 1 tsp PO DAILY 02/03/19 11/05/24 Lactobacil.acidophilus-Bifido.animalis 3 cap PO DAILY 03/14/19 11/05/24 5 billion cell sprinkle capsule (Probiotic) albuterol sulfate 2.5 mg/3 mL 2.5 mg inhalation Q6 03/14/19 11/05/24 (0.083 %) solution for nebulization Eye Drops Relief 1 drp ophthalmic (eye) DIRECTED 11/05/24 11/05/24 Mucomyst 1 vial inhalation DIRECTED 11/05/24 11/05/24 Nexium 1 cap PO DIRECTED 11/05/24 11/05/24 Novolin R FlexPen 22 units subcut DIRECTED 11/05/24 11/05/24 Trelegy Ellipta 1 puff inhalation DAILY 11/05/24 11/05/24 aspirin 81 mg tablet,delayed 81 mg PO .Q OTHER DAY 11/05/24 11/05/24 release ipratropium bromide 0.02 % 0.5 mg inhalation Q6H PRN Other 11/05/24 11/05/24 solution for inhalation losartan 25 mg tablet 25 mg PO DAILY 11/05/24 11/05/24 melatonin 1 tab PO DAILY 11/05/24 11/05/24 methylprednisolone 4 mg tablets in 4 mg PO DIRECTED 11/05/24 11/05/24 a dose pack montelukast 10 mg tablet 10 mg PO DAILY 11/05/24 11/05/24 Previous Rx's Medication Instructions Recorded insulin NPH isoph U-100 human 100 25 unit (0.25 mL) subcut DAILY #10 03/16/19 unit/mL subcutaneous suspension mL (Novolin N NPH U-100 Insulin isophane) prednisone 10 mg tablet 10 mg PO DAILY #32 tabs 03/25/19 Results & Data (ED) Vital Signs Vital Signs - 24 hr 11/05/24 11:15 11/05/24 11:26 11/05/24 11:30 Temperature 37.7 C H Temperature Source Temporal Artery Scan Pulse Rate 125 H Pulse Rate [Apical] Pulse Rate from SpO2 Sensor Respiratory Rate 20 Respiratory Effort / Characteristics Non-Labored Respiratory Depth Normal Blood Pressure 109/64 133/82 113/77 Blood Pressure [Left Arm] Blood Pressure Mean 79 109 100 Blood Pressure Mean [Left Arm] Blood Pressure Position Sitting Blood Pressure Position [Left Arm] Pulse Oximetry 93 Oxygen Delivery Method Nasal Cannula Oxygen Flow Rate 1 Sepsis Recent Fever Within 48 Hours Yes Sepsis New/Unexplained Change in Mental Status N/A Sepsis Action Taken by Nursing No Action Required 11/05/24 11:30 11/05/24 11:34 11/05/24 11:51 Temperature Temperature Source Pulse Rate 117 H 117 H Pulse Rate [Apical] Pulse Rate from SpO2 Sensor Respiratory Rate 15 23 Respiratory Effort / Characteristics Respiratory Depth Blood Pressure Blood Pressure [Left Arm] Blood Pressure Mean Blood Pressure Mean [Left Arm] Blood Pressure Position Blood Pressure Position [Left Arm] Pulse Oximetry 95 95 94 Oxygen Delivery Method Nasal Cannula Oxygen Flow Rate 3 Sepsis Recent Fever Within 48 Hours Sepsis New/Unexplained Change in Mental Status Sepsis Action Taken by Nursing 11/05/24 11:54 11/05/24 12:00 11/05/24 12:18 Temperature Temperature Source Pulse Rate 115 H 117 H Pulse Rate [Apical] Pulse Rate from SpO2 Sensor Respiratory Rate 18 24 Respiratory Effort / Characteristics Respiratory Depth Blood Pressure 113/76 Blood Pressure [Left Arm] Blood Pressure Mean 95 Blood Pressure Mean [Left Arm] Blood Pressure Position Blood Pressure Position [Left Arm] Pulse Oximetry 99 94 Oxygen Delivery Method Oxygen Flow Rate Sepsis Recent Fever Within 48 Hours Sepsis New/Unexplained Change in Mental Status Sepsis Action Taken by Nursing 11/05/24 12:21 11/05/24 12:30 11/05/24 12:30 Temperature Temperature Source Pulse Rate 113 H Pulse Rate [Apical] Pulse Rate from SpO2 Sensor Respiratory Rate 25 H Respiratory Effort / Characteristics Respiratory Depth Blood Pressure 124/75 124/75 Blood Pressure [Left Arm] Blood Pressure Mean 96 96 Blood Pressure Mean [Left Arm] Blood Pressure Position Blood Pressure Position [Left Arm] Pulse Oximetry 95 Oxygen Delivery Method Oxygen Flow Rate Sepsis Recent Fever Within 48 Hours Sepsis New/Unexplained Change in Mental Status Sepsis Action Taken by Nursing 11/05/24 12:39 11/05/24 13:00 11/05/24 13:00 Temperature Temperature Source Pulse Rate 107 H Pulse Rate [Apical] Pulse Rate from SpO2 Sensor Respiratory Rate 25 H Respiratory Effort / Characteristics Respiratory Depth Blood Pressure 129/71 129/71 Blood Pressure [Left Arm] Blood Pressure Mean 89 89 Blood Pressure Mean [Left Arm] Blood Pressure Position Blood Pressure Position [Left Arm] Pulse Oximetry 94 Oxygen Delivery Method Oxygen Flow Rate Sepsis Recent Fever Within 48 Hours Sepsis New/Unexplained Change in Mental Status Sepsis Action Taken by Nursing 11/05/24 13:00 11/05/24 13:03 11/05/24 13:15 Temperature Temperature Source Pulse Rate 106 H Pulse Rate [Apical] 98 H Pulse Rate from SpO2 Sensor Respiratory Rate 30 H 18 Respiratory Effort / Characteristics Respiratory Depth Blood Pressure 129/71 Blood Pressure [Left Arm] 99/70 L Blood Pressure Mean 89 Blood Pressure Mean [Left Arm] 79 Blood Pressure Position Blood Pressure Position [Left Arm] Lying Pulse Oximetry 95 96 Oxygen Delivery Method Nasal Cannula Oxygen Flow Rate 2 Sepsis Recent Fever Within 48 Hours Sepsis New/Unexplained Change in Mental Status Sepsis Action Taken by Nursing 11/05/24 13:24 11/05/24 13:27 11/05/24 13:30 Temperature Temperature Source Pulse Rate 105 H 113 H Pulse Rate [Apical] Pulse Rate from SpO2 Sensor Respiratory Rate 24 24 Respiratory Effort / Characteristics Respiratory Depth Blood Pressure 130/65 Blood Pressure [Left Arm] Blood Pressure Mean 81 Blood Pressure Mean [Left Arm] Blood Pressure Position Blood Pressure Position [Left Arm] Pulse Oximetry 96 93 Oxygen Delivery Method Oxygen Flow Rate Sepsis Recent Fever Within 48 Hours Sepsis New/Unexplained Change in Mental Status Sepsis Action Taken by Nursing 11/05/24 13:42 11/05/24 13:54 11/05/24 14:05 Temperature 37.8 C H Temperature Source Oral Pulse Rate 113 H 101 H Pulse Rate [Apical] Pulse Rate from SpO2 Sensor 100 H Respiratory Rate 19 19 Respiratory Effort / Characteristics Respiratory Depth Blood Pressure Blood Pressure [Left Arm] Blood Pressure Mean Blood Pressure Mean [Left Arm] Blood Pressure Position Blood Pressure Position [Left Arm] Pulse Oximetry 96 93 Oxygen Delivery Method Oxygen Flow Rate Sepsis Recent Fever Within 48 Hours Sepsis New/Unexplained Change in Mental Status Sepsis Action Taken by Nursing 11/05/24 14:06 11/05/24 14:12 11/05/24 14:21 Temperature Temperature Source Pulse Rate 102 H 101 H 101 H Pulse Rate [Apical] Pulse Rate from SpO2 Sensor 102 H 100 H Respiratory Rate 24 Respiratory Effort / Characteristics Respiratory Depth Blood Pressure Blood Pressure [Left Arm] Blood Pressure Mean Blood Pressure Mean [Left Arm] Blood Pressure Position Blood Pressure Position [Left Arm] Pulse Oximetry 95 95 95 Oxygen Delivery Method Oxygen Flow Rate Sepsis Recent Fever Within 48 Hours Sepsis New/Unexplained Change in Mental Status Sepsis Action Taken by Nursing 11/05/24 14:35 11/05/24 14:39 11/05/24 15:00 Temperature Temperature Source Pulse Rate 106 H Pulse Rate [Apical] 94 H Pulse Rate from SpO2 Sensor 107 H Respiratory Rate 21 16 Respiratory Effort / Characteristics Non-Labored Spontaneous Respiratory Depth Blood Pressure 117/67 Blood Pressure [Left Arm] 114/64 Blood Pressure Mean 88 Blood Pressure Mean [Left Arm] 80 Blood Pressure Position Blood Pressure Position [Left Arm] Lying Pulse Oximetry 94 97 Oxygen Delivery Method Nasal Cannula Oxygen Flow Rate 2 Sepsis Recent Fever Within 48 Hours Sepsis New/Unexplained Change in Mental Status Sepsis Action Taken by Nursing 11/05/24 15:21 Temperature 37.4 C Temperature Source Oral Pulse Rate Pulse Rate [Apical] Pulse Rate from SpO2 Sensor Respiratory Rate Respiratory Effort / Characteristics Respiratory Depth Blood Pressure Blood Pressure [Left Arm] Blood Pressure Mean Blood Pressure Mean [Left Arm] Blood Pressure Position Blood Pressure Position [Left Arm] Pulse Oximetry Oxygen Delivery Method Oxygen Flow Rate Sepsis Recent Fever Within 48 Hours Sepsis New/Unexplained Change in Mental Status Sepsis Action Taken by Nursing Laboratory Data 11/05/24 11:45 11/05/24 11:45 Lab Results 11/05/24 11/05/24 11/05/24 Range/Units 11:20 11:45 14:37 WBC 6.91 (4.8-10.8) K/ul RBC 4.62 (4.20-5.40) M/uL Hgb 13.0 (12.0-16.0) g/dl Hct 39.3 (37.0-47.0) % MCV 85.1 (80.0-100.0) fL MCH 28.1 (25.0-34.0) pg MCHC 33.1 (32.0-36.0) g/dL RDW Std Deviation 39.6 (36.4-46.3) fL RDW Coeff of Leopoldo 12.9 (11.5-14.5) % Plt Count 115 L (130-400) K/uL MPV 9.1 L (9.4-12.4) fL Immature Gran % (Auto) 0.3 % Neut % (Auto) 77.8 % Lymph % (Auto) 9.4 % Waller % (Auto) 11.4 % Eos % (Auto) 0.7 % Baso % (Auto) 0.4 % Neut # (Auto) 5.37 (1.40-6.50) K/uL Lymph # (Auto) 0.65 L (1.20-3.40) K/uL Waller # (Auto) 0.79 H (0.11-0.59) K/uL Eos # (Auto) 0.05 (0.00-0.50) K/uL Baso # (Auto) 0.03 (0.00-0.20) K/uL Immature Gran # (Auto) 0.02 (0.01-0.20) K/uL PT 11.8 (9.0-12.0) Seconds INR 1.1 (0.9-1.1) APTT 29 (21-31) Seconds PTT Ratio 1.1 VBG pH 7.41 (7.36-7.41) VBG pCO2 47 (38-50) mmHg VBG pO2 41 mmHg VBG HCO3 30 mmol/L VBG O2 Saturation 76.3 % VBG Base Excess 4.3 mEq/L Sodium 134 L (136-145) mmol/L Potassium 4.1 (3.5-5.1) mmol/L Chloride 97 L (98-107) mmol/L Carbon Dioxide 30 (21-32) mmol/L Anion Gap 7 (3-11) BUN 12 (6-23) mg/dl Creatinine 0.53 L (0.6-1.2) mg/dl Est Cr Clr Drug Dosing 132.8 ml/min eGFR 111.21 BUN/Creatinine Ratio 22.6 H (10-20) Glucose 221 H (70-99(Fasting)) mg/dl Lactate 1.4 (0.4-2.0) mmol/L Calcium 10.8 H (8.6-10.3) mg/dl Magnesium 1.6 L (1.7-2.4) mg/dl Total Bilirubin 0.4 (0.2-1.0) mg/dl AST 33 (13-39) U/L ALT 20 (7-52) U/L Alkaline Phosphatase 75 (34-104) U/L Troponin I High Sens 3.4 (0-14) pg/ml Total Protein 7.3 (6.0-8.3) gm/dl Albumin 4.0 (3.4-5.0) gm/dl Globulin 3.3 (2.5-4.0) gm/dl Albumin/Globulin Ratio 1.2 (0.9-2) Lipase 10 L (11-82) U/L Procalcitonin 0.20 (0-0.5) ng/ml Urine Color Yellow Urine Appearance Clear (Clear) Urine pH 5.5 (4.5-7.5) Ur Specific Ralston 1.031 H (1.000-1.030) Urine Protein 1+ H (Negative) Urine Glucose (UA) 1+ H (Negative) Urine Ketones 1+ H (Negative) Urine Blood Negative (Negative) Urine Nitrite Negative (Negative) Urine Bilirubin Negative (Negative) Urine Urobilinogen Negative (Negative) Ur Leukocyte Esterase Negative (Negative) Urine WBC (Auto) 0-5 (0-5) /hpf Urine RBC (Auto) 0-2 (0-2) /hpf U Hyaline Cast (Auto) 0-2 (0-2) /lpf U Epithel Cells (Auto) 0-2 (0-2) /hpf Urine Bacteria (Auto) None Seen (None Seen) Adenovirus (PCR) Not Detected (NotDetected) B. pertussis DNA (PCR) Not Detected (NotDetected) B.parapertussis DNA PCR Not Detected (NotDetected) C. pneumoniae DNA (PCR) Not Detected (NotDetected) Coronavirus OC43 (PCR) Not Detected (NotDetected) Coronavirus HKU1 (PCR) Not Detected (NotDetected) Coronavirus 229E (PCR) Not Detected (NotDetected) SARS-CoV-2 (PCR) Not Detected (NotDetected) Coronavirus NL63 (PCR) Not Detected (NotDetected) Human Metapneumovir PCR Not Detected (NotDetected) Influenza A (H3) PCR DETECTED A (NotDetected) Influenza Type B (PCR) Not Detected (NotDetected) M. pneumoniae (PCR) Not Detected (NotDetected) Parainfluenza 1 (PCR) Not Detected (NotDetected) Parainfluenza 2 (PCR) Not Detected (NotDetected) Parainfluenza 3 (PCR) Not Detected (NotDetected) Parainfluenza 4 (PCR) Not Detected (NotDetected) RSV (PCR) Not Detected (NotDetected) Entero/Rhino (PCR) Not Detected (NotDetected) Administered Medications Acetaminophen (Acetaminophen 325 Mg Tab) 650 mg PO Q4H PRN PRN Reason: Pain or Fever Stop: 12/05/24 16:10 Last Admin: 11/05/24 18:56 Dose: 650 mg Documented By: TERA Acetylcysteine (Acetylcysteine 20% Inhal Soln 4ml Dispensed By Resp.) 4 ml INH QIDR TOVA Stop: 12/05/24 19:29 Last Admin: 11/05/24 20:32 Dose: 4 ml Documented By: [id number] Albuterol (Albut/Ipratrop 3mg/0.5mg Neb 3 Ml Vial) 3 ml NEB Q6R TOVA; Protocol Stop: 12/05/24 18:59 Last Admin: 11/05/24 18:39 Dose: 3 ml Documented By: TERA Albuterol (Albuterol 0.083% Nebu Soln 3 Ml Vial) 2.5 mg NEB Q6H PRN; Protocol PRN Reason: Shortness Of Breath Or Wheezing Stop: 12/05/24 16:26 Last Admin: 11/05/24 20:29 Dose: 2.5 mg Documented By: [id number] Benzonatate (Benzonatate 100 Mg Capsule) 100 mg PO TID PRN PRN Reason: Cough Stop: 12/05/24 16:09 Last Admin: 11/05/24 18:12 Dose: 100 mg Documented By: TERA Insulin Aspart (Insulin Aspart Per Unit Charge) 0 units SC ACHS TOVA Stop: 12/05/24 16:29 Last Admin: 11/05/24 18:35 Dose: 4 units Documented By: TERA Co-signed By: OUMAR Oseltamivir Phosphate (Oseltamivir Phosphate Susp 75 Mg/12.5 Ml Udp) 75 mg PO BID TOVA; Protocol Stop: 11/10/24 17:29 Last Admin: 11/05/24 18:11 Dose: 75 mg Documented By: TERA Discontinued Medications Albuterol (Albut/Ipratrop 3mg/0.5mg Neb 3 Ml Vial) 3 ml NEB NOW STA; Protocol Stop: 11/05/24 11:33 Last Admin: 11/05/24 11:46 Dose: 3 ml Documented By: OUMAR Sodium Chloride (Nss) 500 mls @ 999 mls/hr IV .Q31M ONE Stop: 11/05/24 12:02 Last Infusion: 11/05/24 12:33 Dose: Infused Documented By: Admin: 11/05/24 11:47 Dose: 999 mls/hr Documented By: OUMAR Acetaminophen (Ofirmev) 1,000 mg in 100 mls @ 400 mls/hr IV NOW STA Stop: 11/05/24 11:49 Last Infusion: 11/05/24 12:11 Dose: Infused Documented By: Admin: 11/05/24 11:46 Dose: 400 mls/hr Documented By: OUMAR Magnesium Sulfate/Dextrose (Magnesium Sulfate / D5w) 1 gm in 100 mls @ 100 mls/hr IV NOW STA Stop: 11/05/24 13:56 Last Infusion: 11/05/24 14:24 Dose: Infused Documented By: Admin: 11/05/24 13:24 Dose: 100 mls/hr Documented By: TERA Sodium Chloride (Nss) 500 mls @ 999 mls/hr IV .Q31M ONE Stop: 11/05/24 15:54 Last Infusion: 11/05/24 18:04 Dose: Infused Documented By: Admin: 11/05/24 16:00 Dose: 999 mls/hr Documented By: TERA Levofloxacin/Dextrose (Levaquin/D5w) 750 mg in 150 mls @ 100 mls/hr IV NOW STA Stop: 11/05/24 16:56 Last Infusion: 11/05/24 18:04 Dose: Infused Documented By: Admin: 11/05/24 16:01 Dose: 100 mls/hr Documented By: TERA Methylprednisolone (Methylprednisolone 125 Mg/2 Ml Vial) 40 mg IV NOW STA Stop: 11/05/24 15:28 Last Admin: 11/05/24 16:00 Dose: 40 mg Documented By: TERA Oseltamivir Phosphate (Oseltamivir Phosphate 75 Mg Cap) 75 mg PO BID TOVA; Protocol Stop: 11/10/24 16:09 Last Admin: 11/05/24 16:43 Dose: Not Given Documented By: TERA Imaging Data Radiologist's Impression: Chest X-Ray 11/05/24 11:32 XR chest 1V portable CLINICAL HISTORY: Shortness of breath. Cough. COMPARISON STUDY: Chest CT February 18, 2019. Chest radiograph April 20, 2019. FINDINGS: There are median sternotomy wires and mediastinal surgical clips. Cardiac size is normal. There is mild bilateral hilar enlargement. Pulmonary vascular congestion is noted. There is no consolidation to suggest pneumonia. No pneumothorax or pleural effusion is present. IMPRESSION: 1. Pulmonary vascular congestion without overt pulmonary edema. 2. Bilateral hilar enlargement which may be related to pulmonary vessels. Lymphadenopathy could appear similar. Nonemergent chest CT with contrast is recommended. ACT 112: Negative or not required by law. Electronically signed by: Douglas Lerner M.D. 11/05/2024 1:02 PM Discharge Plan Visit Data Chief Complaint: Flu Like Symptoms Stated Complaint: COUGH, ASTHMA/COPD, CONGESTION, FEVER, VOMITING ED Provider: Basil Shepherd ED Midlevel Provider: Lulu Saravia Discharge Problem: Acute on chronic respiratory failure, Influenza A Patient Disposition: Admitted As Inpatient Condition: Good Discharge Instructions Interventions: ED Discharge Assessment Last Done: 11/05/24 16:58 Discharge Problem: Acute on chronic respiratory failure Qualifiers: Respiratory failure complication: hypoxia Qualified Code(s): J96.21 - Acute and chronic respiratory failure with hypoxia
[2024-11-05] MEDS: ACETAMINOPHEN 1,000 MG/100 ML VIAL IV STA (11:46)
[2024-11-05] MEDS: ALBUT/IPRATROP 3MG/0.5MG NEB 3 ML VIAL NEB STA (11:46)
[2024-11-05] MEDS: SODIUM CHLORIDE 0.9% 500 ML IV ONE ×3 (11:47→21:48)
[2024-11-05 12:03] LABS: Base Excess VBG 4.3 mEq/L; HCO3 VBG 30 mmol/L; Oxygen Saturation VBG 76.3 %; PCO2 VBG 47 mmHg (38-50); PO2 VBG 41 mmHg; pH VBG 7.41 (7.36-7.41)
[2024-11-05 12:09] LABS: Basophils # (auto) 0.03 K/uL (0.00-0.20); Basophils % (auto) 0.4 %; Eosinophils # (auto) 0.05 K/uL (0.00-0.50); Eosinophils % (auto) 0.7 %; Hematocrit (blood only) 39.3 % (37.0-47.0); Immature Granulocytes # (auto) 0.02 K/uL (0.01-0.20); Immature Granulocytes % (auto) 0.3 %; Lymphocytes # (auto) 0.65 K/uL (1.20-3.40); Lymphocytes % (auto) 9.4 %; Mean Corpuscular Hemoglobin 28.1 pg (25.0-34.0); Mean Corpuscular Hgb Conc 33.1 g/dL (32.0-36.0); Mean Corpuscular Volume 85.1 fL (80.0-100.0); Mean Platelet Volume 9.1 fL (9.4-12.4); Monocytes # (auto) 0.79 K/uL (0.11-0.59); Monocytes % (auto) 11.4 %; Neutrophils # (auto) 5.37 K/uL (1.40-6.50); Neutrophils % (auto) 77.8 %; Platelet Count 115 K/uL (130-400); RDW Coefficient of Variation 12.9 % (11.5-14.5); RDW Standard Deviation 39.6 fL (36.4-46.3); Red Blood Count 4.62 M/uL (4.20-5.40); White Blood Count 6.91 K/ul (4.8-10.8)
[2024-11-05 12:23] LABS: Adenovirus PCR Not Detected (NotDetected); Bordetella parapertussis PCR Not Detected (NotDetected); Bordetella pertussis PCR Not Detected (NotDetected); Chlamydia pneumoniae PCR Not Detected (NotDetected); Coronavirus 229E PCR Not Detected (NotDetected); Coronavirus CoV-2 (COVID19)PCR Not Detected (NotDetected); Coronavirus HKU1 PCR Not Detected (NotDetected); Coronavirus NL63 PCR Not Detected (NotDetected); Coronavirus OC43PCR Not Detected (NotDetected); Human Metapneumovirus PCR Not Detected (NotDetected); Influenza A (H3) PCR DETECTED (NotDetected); Influenza B PCR Not Detected (NotDetected); Mycoplasma pneumoniae PCR Not Detected (NotDetected); Parainfluenza Virus 1 PCR Not Detected (NotDetected); Parainfluenza Virus 2 PCR Not Detected (NotDetected); Parainfluenza Virus 3 PCR Not Detected (NotDetected); Parainfluenza Virus 4 PCR Not Detected (NotDetected); Respiratory Syncytial VirusPCR Not Detected (NotDetected); Rhinovirus/Enterovirus PCR Not Detected (NotDetected)
[2024-11-05 12:29] LABS: Albumin Globulin Ratio 1.2 (0.9-2); BUN Creatinine Ratio 22.6 (10-20); Bilirubin,Total 0.4 mg/dl (0.2-1.0); Calcium 10.8 mg/dl (8.6-10.3); Creatinine Clr Calc Pharmacy 132.8 ml/min; Globulin 3.3 gm/dl (2.5-4.0); Magnesium 1.6 mg/dl (1.7-2.4); Potassium 4.1 mmol/L (3.5-5.1); Total Protein 7.3 gm/dl (6.0-8.3)
[2024-11-05 12:35] LABS: INR 1.1 (0.9-1.1); Partial Thromboplastin Ratio 1.1; Partial Thromboplastin Time 29 Seconds (21-31); Prothrombin Time 11.8 Seconds (9.0-12.0)
[2024-11-05 12:36] LABS: Troponin I High Sensitivity 3.4 pg/ml (0-14)
--- NOTE | 2024-11-05 13:03 | XRay Report ---
XR chest 1V portable CLINICAL HISTORY: Shortness of breath. Cough. COMPARISON STUDY: Chest CT February 18, 2019. Chest radiograph April 20, 2019. FINDINGS: There are median sternotomy wires and mediastinal surgical clips. Cardiac size is normal. T here is mild bilateral hilar enlargement. Pulmonary vascular congestion is noted. There is no consoli dation to suggest pneumonia. No pneumothorax or pleural effusion is present. IMPRESSION: 1. Pulmonary vascular congestion without overt pulmonary edema. 2. Bilateral hilar enlargement which may be related to pulmonary vessels. Lymphadenopathy could appea r similar. Nonemergent chest CT with contrast is recommended. ACT 112: Negative or not required by law. Electronically signed by: Douglas Lerner M.D. 11/05/2024 1:02 PM
[2024-11-05] MEDS: MAGNESIUM SULFATE / D5W 1 GM/100 ML BAG IV STA (13:24)
[2024-11-05 15:22] LABS: Appearance Urine Clear (Clear); Bacteria Urine Automated None Seen (None Seen); Bilirubin Urine Negative (Negative); Blood Urine Negative (Negative); Cast Urine Automated 0-2 /lpf (0-2); Color Urine Yellow; Epithelial Cell Urine Auto 0-2 /hpf (0-2); Glucose Urine UA 1+ (Negative); Ketones Urine 1+ (Negative); Leukocyte Esterase Urine Negative (Negative); Nitrite Urine Negative (Negative); Protein Urine 1+ (Negative); RBC Urine Automated 0-2 /hpf (0-2); Specific Gravity Urine 1.031 (1.000-1.030); Urobilinogen Urine Negative (Negative); WBC Urine Automated 0-5 /hpf (0-5); pH Urine 5.5 (4.5-7.5)
[2024-11-05] MEDS: methylPREDNISolone 125 MG/2 ML VIAL IV STA (16:00)
[2024-11-05] MEDS: levoFLOXacin/D5W 750 MG/150 ML BAG IV STA (16:01)
[2024-11-05] MEDS ORDERED: DEXTROSE 50% 50 ML SYRINGE IV PRN (16:14)
[2024-11-05] MEDS ORDERED: CARBOHYDRATES FOR HYPOGLYCEMIA PO PRN (16:14)
[2024-11-05] MEDS ORDERED: PHARMACY GLYCEMIC MGMT CONSULT PRN (16:14)
[2024-11-05] MEDS ORDERED: GLUCOSE 10 TAB/TUBE PO PRN (16:14)
[2024-11-05] MEDS ORDERED: GLUCOSE 40% GEL 15 GM TUBE PO PRN (16:14)
[2024-11-05] MEDS ORDERED: GLUCAGON FOR INJ 1 MG VIAL SQ PRN (16:14)
--- NOTE | 2024-11-05 16:34 | History & Physical Report ---
Date of Service November 05, 2024 Assessment & Plan (1) Acute on chronic respiratory failure: Plan: Assessment: 1. Acute on chronic hypoxemic respiratory failure secondary to #2. Aggressive pulmonary toilet as described below. 2. Acute influenza A infection. P.o. Tamiflu. Nebulizer treatments. IV corticosteroids Solu-Medrol 40 mg IV twice daily. 3. Acute exacerbation of COPD secondary to #2. The patient's marker machine attendant recommended a course of Levaquin. She has had her third dose here in the ER. Will complete a 5-day course however I do not feel this represents an acute pneumonia or acute bronchitis I think this is all mostly secondary to acute influenza A. 4. Diabetes mellitus type 2. Insulin requiring. We have ordered basal bolus insulin therapy. We do suspect she will have hyperglycemia she is already 221 mg/dL and she is on steroids now will titrate insulins aggressively via pharmacy protocol. 5. Documented history of hypertension. She is normotensive here. It does not appear she is currently treated for hypertension. Will monitor. Plan: As discussed above. Please refer to orders for further planning. History of Present Illness Chief Complaint: Shortness of breath cough. Primary Care Provider: Gregory Christy MD This is a 54-year-old female with a very significant history of underlying advanced age COPD/asthma he is oxygen dependent at home. She is from the state of [place]. She is in town for a . Over the last several days she has had increased shortness of breath and cough. Her [id number] marker machine attendant phoned her and Levaquin and prednisone 3 days ago. She took the first 2 days of Levaquin. She did not start the prednisone. Today she had some nausea and vomiting and came to the ER here locally for further evaluation and treatment. In the ER she tested positive for influenza A. Chest x-ray was negative for acute infiltrate. She was requiring as high as 4 L of oxygen nasal cannula. She typically wears 1 L of oxygen nasal cannula continuously at home. She received a nebulizer treatments. She received a IV dose of Levaquin. We are called admit the patient for further evaluation and treatment. Recommend to the patient on Tamiflu. Treat her with nebulizers and IV Solu- Medrol. Admit for exacerbation of COPD secondary to acute influenza A infection. With acute on chronic hypoxemic respiratory failure. Allergies Allergy/AdvReac Type Severity Reaction Status Date / Time cyclobenzaprine Allergy Intermediate HALLUCINATI Verified 03/20/19 14:38 ON lidocaine Allergy Intermediate ITCHING Verified 03/20/19 14:38 AND BURNING ON CONTACT nystatin Allergy Intermediate ITCHING Verified 03/20/19 14:38 AND BURNING cefaclor Allergy Mild SICK TO Verified 03/20/19 14:38 STOMACH morphine Allergy Mild VOMITTING Verified 03/20/19 14:38 Home Medications Medication Instructions Recorded Confirmed Type Raw Honey 1 tsp PO DAILY 02/03/19 03/20/19 History insulin aspart U-100 100 unit/mL 10 units subcut QID 02/03/19 03/20/19 History subcutaneous solution (Novolog U-100 Insulin aspart) Lactobacil.acidophilus-Bifido.animalis 3 cap PO DAILY 03/14/19 03/20/19 History 5 billion cell sprinkle capsule (Probiotic) albuterol sulfate 2.5 mg/3 mL 2.5 mg inhalation Q6 03/14/19 03/20/19 History (0.083 %) solution for nebulization budesonide-formoterol HFA 160 2 puff inhalation BID 03/14/19 03/20/19 History mcg-4.5 mcg/actuation aerosol inhaler (Symbicort) clotrimazole 10 mg radha 1 peter PO DIRECTED 03/14/19 03/20/19 History cyclosporine 0.05 % eye drops in a 1 drp ophthalmic (eye) Q12H 03/14/19 03/20/19 History dropperette (Restasis) insulin NPH isoph U-100 human 100 25 unit (0.25 mL) subcut DAILY #10 03/16/19 03/20/19 Rx unit/mL subcutaneous suspension mL (Novolin N NPH U-100 Insulin isophane) insulin glargine 100 unit/mL (3 5 unit (0.05 mL) subcut HS #0 mL 03/16/19 03/20/19 Rx mL) subcutaneous pen (Basaglar KwikPen U-100 Insulin) arformoterol 15 mcg/2 mL solution 15 mcg (2 mL) inhalation BIDR #0 mL 03/25/19 Rx for nebulization (Brovana) prednisone 10 mg tablet 10 mg PO DAILY #32 tabs 03/25/19 Rx voriconazole 200 mg tablet (Vfend) 200 mg PO BID #37 tabs 03/25/19 Rx albuterol sulfate 90 mcg/actuation 2 puffs inhalation Q4H #1 g 06/07/19 History aerosol inhaler ipratropium bromide 0.02 % 0.5 mg (2.5 mL) inhalation Q6H 06/07/19 Rx solution for inhalation #150 mL Past Med/Surg History Problem List (Updated 07/02/20 @ 13:59 by [email or web address]) Aspergillus COPD exacerbation (Acute) DVT prophylaxis COPD (chronic obstructive pulmonary disease) Acute on chronic respiratory failure (Acute) Acute on chronic respiratory failure with hypoxia and hypercapnia (Acute) Hypertension Acute respiratory failure with hypoxia and hypercarbia Encounter for pre-operative examination Lymphoma (Chronic) Diabetes (Chronic) Diabetes mellitus, type II Dyspnea History of tobacco abuse Hypoxia Tachycardia Medical History (Updated 07/02/20 @ 13:59 by Mingxieku) Osteoarthritis Diabetes mellitus type 1 Lymphoma Dry eye Anxiety HX OF Stroke AT AGE 43 "STRESS RELATED" Cardiac murmur Hypertension Hyperlipidemia HX OF On home oxygen therapy 2L AT HS Low oxygen saturation WEARS O2 AT 2L HS (CAUSED BY CHEMO [place]) Surgical History History of laparoscopy History of section X 3 History of bilateral tubal ligation Ovarian cyst REMOVED History of vascular access device PORT INSERTION (FOR CHEMO) History of tooth extraction Family History Mother Family history of diabetes mellitus Social History Smoking Status: Former smoker Second Hand Exposure: No; Do You Dip or Chew Tobacco: No; Hx Alcohol Use: No Hx Substance Use: No Preferred Language: Chinese Communication Ability: Effective Wire Products Inspector Required: No Beliefs That Will Affect Care: None marital status: Current Living Situation: Alone Feels Safe at Home: Yes Assistive Devices: Oxygen - Continuous Review of Systems Review of Systems: A 10 point review of system was obtained and unless otherwise stated here or in history of present illness are negative and noncontributory to chief complaint. Physical Exam Physical Exam: In General: In general 54-year-old female. She is alert and oriented x 3. She is accompanied by her boyfriend her daughter multiple grandchildren -all of whom she granted permission to be present during my interview and exam. She has no complaints except cough and shortness of breath and fatigue. She is requesting Tessalon Perles. HEENT: Normocephalic atraumatic pupils are equal round and reactive to light bilaterally. No scleral icterus no conjunctival injection external auditory canals are patent septum is in the midline nose is without discharge oral mucosa is pink and moist without lesion. NECK: Supple no rigidity no lymphadenopathy no thyromegaly no carotid bruits no JVD no masses. HEART: Regular rate and rhythm I do not appreciate any ectopy or rub. No murmur. LUNGS: Coarse bilaterally with expiratory wheezes. No rhonchi ABDOMEN: Soft nontender, no rebound, no peritoneal signs, positive bowel sounds, no appreciable organomegaly. EXTREMITIES: Intact, no peripheral cyanosis, clubbing or edema. Strength is 5 out of 5 in extremities x4. NEUROLOGICAL: Cranial nerves II through XII are grossly intact with no focal deficit elicited upon examination. Results & Data Results & Data Vital Signs (Past 12 Hours) Vital Signs Temp Pulse Pulse Resp BP BP Pulse Ox 11/05/24 15:21 37.4 C 11/05/24 15:00 94 H 16 114/64 97 11/05/24 14:39 106 H 21 94 11/05/24 14:35 117/67 11/05/24 14:21 101 H 95 11/05/24 14:12 101 H 95 11/05/24 14:06 102 H 24 95 11/05/24 14:05 37.8 C H 11/05/24 13:54 101 H 19 93 11/05/24 13:42 113 H 19 96 11/05/24 13:30 130/65 11/05/24 13:27 113 H 24 93 11/05/24 13:24 105 H 24 96 11/05/24 13:15 98 H 18 99/70 L 96 11/05/24 13:03 106 H 30 H 95 11/05/24 13:00 129/71 11/05/24 13:00 129/71 11/05/24 13:00 129/71 11/05/24 12:39 107 H 25 H 94 11/05/24 12:30 124/75 11/05/24 12:30 124/75 11/05/24 12:21 113 H 25 H 95 11/05/24 12:18 117 H 24 94 11/05/24 12:00 113/76 11/05/24 11:54 115 H 18 99 11/05/24 11:51 117 H 23 94 11/05/24 11:34 95 11/05/24 11:30 117 H 15 95 11/05/24 11:30 113/77 11/05/24 11:26 133/82 11/05/24 11:15 37.7 C H 125 H 20 109/64 93 O2 Del Method O2 Flow Rate 11/05/24 15:21 11/05/24 15:00 Nasal Cannula 2 11/05/24 14:39 11/05/24 14:35 11/05/24 14:21 11/05/24 14:12 11/05/24 14:06 11/05/24 14:05 11/05/24 13:54 11/05/24 13:42 11/05/24 13:30 11/05/24 13:27 11/05/24 13:24 11/05/24 13:15 Nasal Cannula 2 11/05/24 13:03 11/05/24 13:00 11/05/24 13:00 11/05/24 13:00 11/05/24 12:39 11/05/24 12:30 11/05/24 12:30 11/05/24 12:21 11/05/24 12:18 11/05/24 12:00 11/05/24 11:54 11/05/24 11:51 11/05/24 11:34 Nasal Cannula 3 11/05/24 11:30 11/05/24 11:30 11/05/24 11:26 11/05/24 11:15 Nasal Cannula 1 Code Status & VTE Plan Code Status Full code. I personally discussed with patient at the bedside VTE Prophylaxis Plan VTE Prophylaxis will be ordered: Yes PG Care Time/CCT Total # of Minutes Spent Total Time Spent with Patient: Total time spent is greater than 50% in coordination of care (as documented) at patient's floor/unit and/or counseling patient: Coding Level of Care Code 83618 INT INP/OBS CARE 375MIN Diagnoses Acute on chronic respiratory failure J96.21 Respiratory failure complication: hypoxia (1) Acute on chronic respiratory failure Respiratory failure complication: hypoxia Qualified Code(s): J96.21 - Acute and chronic respiratory failure with hypoxia
[2024-11-05] MEDS: OSELTAMIVIR PHOSPHATE 75 MG CAP PO SCH (16:43)
--- NOTE | 2024-11-05 17:02 | Emergency Department Note ---
ED Visit Note I was consulted by the Advanced Practice Provider. I personally made or approved the management plan for the patient. I performed a substantive portion of the visit. This includes the aspects of: MDM. .
[2024-11-05] MEDS: OSELTAMIVIR PHOSPHATE SUSP 75 MG/12.5 ML UDP PO SCH (18:11)
[2024-11-05] MEDS: BENZONATATE 100 MG CAPSULE PO PRN (18:12)
[2024-11-05] MEDS: INSULIN ASPART PER UNIT CHARGE SC SCH ×2 (18:35→23:36)
[2024-11-05] MEDS: ALBUT/IPRATROP 3MG/0.5MG NEB 3 ML VIAL NEB SCH (18:39)
[2024-11-05] MEDS: ACETAMINOPHEN 325 MG TAB PO PRN (18:56)
[2024-11-05] MEDS: ALBUTEROL 0.083% NEBU SOLN 3 ML VIAL NEB PRN (20:29)
[2024-11-05] MEDS: ACETYLCYSTEINE 20% INHAL SOLN 4ML ***DISPENSED BY RESP. INH SCH (20:32)
[2024-11-05] MEDS ORDERED: methylPREDNISolone 125 MG/2 ML VIAL IV SCH (21:00)
[2024-11-05] MEDS: LANTUS PER UNIT CHARGE SQ SCH (21:08)
[2024-11-05] MEDS: methylPREDNISolone 40 MG in SYRINGE 0 ML IV SCH (21:41)
[2024-11-05] MEDS: ARTIFICIAL TEARS OP SCH (21:44)
[2024-11-06 07:25] LABS: Albumin Globulin Ratio 1.3 (0.9-2); Albumin Level 3.5 gm/dl (3.4-5.0); BUN Creatinine Ratio 30.8 (10-20); Bilirubin,Total 0.3 mg/dl (0.2-1.0); Calcium 9.8 mg/dl (8.6-10.3); Chol HDL Ratio 4.7 (0-5); Creatinine Clr Calc Pharmacy 180.1 ml/min; Globulin 2.8 gm/dl (2.5-4.0); Magnesium 2.1 mg/dl (1.7-2.4); Potassium 4.1 mmol/L (3.5-5.1); Total Protein 6.3 gm/dl (6.0-8.3)
[2024-11-06 07:27] LABS: Estimated Average Glucose 180 mg/dl; Hemoglobin A1C 7.9 % (4.5-5.6)
[2024-11-06 07:39] LABS: Thyroid Stimulating Hormone 0.243 uIu/ml (0.300-4.500)
[2024-11-06 07:45] LABS: Basophils # (auto) 0.01 K/uL (0.00-0.20); Basophils % (auto) 0.2 %; Hematocrit (blood only) 33.6 % (37.0-47.0); Hemoglobin 11.3 g/dl (12.0-16.0); Immature Granulocytes # (auto) 0.01 K/uL (0.01-0.20); Immature Granulocytes % (auto) 0.2 %; Lymphocytes # (auto) 0.97 K/uL (1.20-3.40); Lymphocytes % (auto) 18.5 %; Mean Corpuscular Hemoglobin 28.8 pg (25.0-34.0); Mean Corpuscular Hgb Conc 33.6 g/dL (32.0-36.0); Mean Corpuscular Volume 85.7 fL (80.0-100.0); Mean Platelet Volume 9.1 fL (9.4-12.4); Monocytes # (auto) 0.53 K/uL (0.11-0.59); Monocytes % (auto) 10.1 %; Neutrophils # (auto) 3.71 K/uL (1.40-6.50); Platelet Count 107 K/uL (130-400); RDW Coefficient of Variation 12.7 % (11.5-14.5); RDW Standard Deviation 39.8 fL (36.4-46.3); Red Blood Count 3.92 M/uL (4.20-5.40); White Blood Count 5.23 K/ul (4.8-10.8)
[2024-11-06 08:15] LABS: T4 Free Thyroxine 0.76 ng/dl (0.61-1.60)
[2024-11-06 08:26] VITALS: BP 119/72; PULSE 96; RESP 20; TEMP 97.9; O2SAT 96
--- NOTE | 2024-11-06 09:36 | Discharge Summary ---
Discharge Summary Date of Service November 06, 2024 Principal Dx & Hospital Course #1 = Principal Diagnosis (1) Acute on chronic respiratory failure: (2) Influenza A: (3) COPD (chronic obstructive pulmonary disease): (4) Diabetes mellitus, type II: Plan This is a 54-year-old female with a very significant history of underlying advanced age COPD/asthma he is oxygen dependent at home (1L). She is from the state of [place]. She is in town for a . Worsening shortness of breath and cough over the last few days was sent in levaquin, and not improving. #Acute on chronic hypoxemic respiratory failure from Influena A - Continue IS, FV, Mucinex - Continue on steroids and Tamiflu - rx at discharge (no rx for steroids, pt has medrol dose pack she has not started that she is instructed to use). - has weaned down to her home O2 requirements, day of discharge reports feeling 80% back to baseline and eager to start her travels back home with her daughter. #COPD - baseline O2 1L - has maintained this - blood cultures: pending - unlikely she has concomitant pneumonia, but okay to continue course of Levaquin prescribed by patient site identification specialist #Diabetes Mellitus - elevated sugars likely due to IV steroids. However A1c 7.9 - defer to PCP for further adjustments Also had normal lipid panel. TSH 0.243 with normal T4 0.76. Dispo: discharge to home today with daughter. To follow up with providers back in [place] Notes For Next Care Provider a1c 7.9 Medication Changes From Visit saurav hunt Admission HPI Per Admitting Provider This is a 54-year-old female with a very significant history of underlying advanced age COPD/asthma he is oxygen dependent at home. She is from the state of [place]. She is in town for a . Over the last several days she has had increased shortness of breath and cough. Her [id number] site identification specialist phoned her and Levaquin and prednisone 3 days ago. She took the first 2 days of Levaquin. She did not start the prednisone. Today she had some nausea and vomiting and came to the ER here locally for further evaluation and treatment. In the ER she tested positive for influenza A. Chest x-ray was negative for acute infiltrate. She was requiring as high as 4 L of oxygen nasal cannula. She typically wears 1 L of oxygen nasal cannula continuously at home. She received a nebulizer treatments. She received a IV dose of Levaquin. We are called admit the patient for further evaluation and treatment. Recommend to the patient on Tamiflu. Treat her with nebulizers and IV Solu- Medrol. Admit for exacerbation of COPD secondary to acute influenza A infection. With acute on chronic hypoxemic respiratory failure. Discharge Exam General: NAD, VS as above Resp: normal respiratory effort, on 1L, diminished in bases, no cough while I am in the room CV: RRR, no murmur, Abd: normal bowel sounds, non tender, no hepatosplenomegaly Extremities: Moves all extremities, no edema Neuro: A&O x3, Skin: intact, no lesions noted Discharge Plan Discharge Items Patient Disposition: Home - Self-Care Reason For Visit: FLU A Discharge Diagnosis: Influenza A Condition on Discharge: Good Activity: Resume your previous activity Weightbearing: Full weightbearing Non-emergency contact: Primary Care Provider Call non-emergency contact if: you have any medication questions and your symptoms worsen Follow-up/Referrals: Gregory Christy MD [Primary Care Provider] - (no longer this pts PCP ) Diet: Carb Consistent or DM2 Addtl Attending Provider Instructions: Chyna, You were hospitalized after having increasing shortness of breath - this was found to be from the Influenza A virus. You were treated with IV steroids and your breathing has improved. You should continue on the steroid pack that your PCP sent in for you. I have sent in tamiflu - first dose will be tonight, and I have also sent in Tessalon Pearls that can be used for cough. You can also pickle solution maker mucinex over the counter that can help to thin the mucus to help with your cough. When you get home please continue to use your flutter valve and incentive spirometer. I may take up to two weeks for you to continue to feel better. Please follow up with your PCP/site identification specialist next week. Your hgb A1c was elevated at 7.9 - continue to work with your PCP to get better control of your sugars. You have blood cultures pending at the time of discharge, they will take 5 days to get final results. If they turn positive you will be notified, you can also check in with your PCP or the [facility] portal. However, given your symptoms and viral illness I do not expect they will be positive. If you start feeling worse during your drive, please seek care at the nearest ER. Thank you for allowing us to participate in your care! Mariely Saldana PA-C Pending Studies at Discharge: Yes (blood cultures ) Stand-Alone Forms: My [facility], Smoking Cessation Medications and DC Order Prescriptions: New oseltamivir [Tamiflu] 6 mg/mL Suspension For Reconstitution 75 mg PO BID 4 Days Qty: 100 0RF benzonatate 100 mg Capsule 100 mg PO TID PRN (Reason: cough) Qty: 12 0RF Continued Raw Honey 1 tsp PO DAILY albuterol sulfate 2.5 mg /3 mL (0.083 %) Solution For Nebulization 2.5 mg INHALATION Q6 Probiotic 5 billion cell Capsule, Sprinkle 3 cap PO DAILY Novolin N NPH U-100 Insulin 100 unit/mL Suspension 25 unit subcut DAILY Qty: 10 0RF Rx Instructions: Take when you take your prednisone dose. losartan 25 mg tablet 25 mg PO DAILY methylprednisolone 4 mg tablets,dose pack 4 mg PO DIRECTED Novolin R FlexPen 22 units subcut DIRECTED Rx Instructions: every time pt eats. aspirin [Aspir-81] 81 mg Tablet,Delayed Release (Dr/Ec) 81 mg PO .Q OTHER DAY montelukast 10 mg Tablet 10 mg PO DAILY Eye Drops Relief 1 drp ophthalmic (eye) DIRECTED Rx Instructions: OTC eye drop Nexium 1 cap PO DIRECTED Rx Instructions: OTC Trelegy Ellipta 1 puff inhalation DAILY melatonin 1 tab PO DAILY Rx Instructions: OTC ipratropium bromide 0.02 % solution 0.5 mg INHALATION Q6H PRN (Reason: Other) Mucomyst 1 vial inhalation DIRECTED Discontinued prednisone 10 mg tablet 10 mg PO DAILY Qty: 32 0RF Rx Instructions: Take 4 tabs once daily for 5 days 3 tabs for 2 days 2 tabs for 2 days 1 tab for 2 days Discharge Orders: Discharge Order (Routine); Ordered 11/06/24 Ordered By: Mariely Benjamin/Other Patient Handouts: Managing Type 2 Diabetes Admission Data Admit Date/Time: 11/05/24 16:11 Attending Provider: Darnell Lynch Admit Provider: Ruben Sepulveda Primary Care Provider: Gregory Christy Other Providers: Ruben Sepulveda Hospital Stay Data Consultations 11/05/24 15:45 ED Decision to Admit Stat Diagnostic Imagining Performed Chest X-Ray 11/05/24 11:32 XR chest 1V portable CLINICAL HISTORY: Shortness of breath. Cough. COMPARISON STUDY: Chest CT February 18, 2019. Chest radiograph April 20, 2019. FINDINGS: There are median sternotomy wires and mediastinal surgical clips. Cardiac size is normal. There is mild bilateral hilar enlargement. Pulmonary vascular congestion is noted. There is no consolidation to suggest pneumonia. No pneumothorax or pleural effusion is present. IMPRESSION: 1. Pulmonary vascular congestion without overt pulmonary edema. 2. Bilateral hilar enlargement which may be related to pulmonary vessels. Lymphadenopathy could appear similar. Nonemergent chest CT with contrast is recommended. ACT 112: Negative or not required by law. Electronically signed by: Douglas Lerner M.D. 11/05/2024 1:02 PM Laboratory Results - last 24 hr 11/05/24 11/05/24 11/05/24 11:20 11:45 14:37 WBC 6.91 RBC 4.62 Hgb 13.0 Hct 39.3 MCV 85.1 MCH 28.1 MCHC 33.1 RDW Std Deviation 39.6 RDW Coeff of Leopoldo 12.9 Plt Count 115 L MPV 9.1 L Immature Gran % (Auto) 0.3 Neut % (Auto) 77.8 Lymph % (Auto) 9.4 [place] % (Auto) 11.4 Eos % (Auto) 0.7 Baso % (Auto) 0.4 Neut # (Auto) 5.37 Lymph # (Auto) 0.65 L [place] # (Auto) 0.79 H Eos # (Auto) 0.05 Baso # (Auto) 0.03 Immature Gran # (Auto) 0.02 PT 11.8 INR 1.1 APTT 29 PTT Ratio 1.1 VBG pH 7.41 VBG pCO2 47 VBG pO2 41 VBG HCO3 30 VBG O2 Saturation 76.3 VBG Base Excess 4.3 Sodium 134 L Potassium 4.1 Chloride 97 L Carbon Dioxide 30 Anion Gap 7 BUN 12 Creatinine 0.53 L Est Cr Clr Drug Dosing 132.8 eGFR 111.21 BUN/Creatinine Ratio 22.6 H Glucose 221 H POC Glucose Estimat Average Glucose Hemoglobin A1c Lactate 1.4 Calcium 10.8 H Magnesium 1.6 L Total Bilirubin 0.4 AST 33 ALT 20 Alkaline Phosphatase 75 Troponin I High Sens 3.4 Total Protein 7.3 Albumin 4.0 Globulin 3.3 Albumin/Globulin Ratio 1.2 Triglycerides Cholesterol LDL Cholesterol, Calc VLDL Cholesterol, Calc HDL Cholesterol Cholesterol/HDL Ratio Lipase 10 L Procalcitonin 0.20 TSH Free T4 Urine Color Yellow Urine Appearance Clear Urine pH 5.5 Ur Specific [place] 1.031 H Urine Protein 1+ H Urine Glucose (UA) 1+ H Urine Ketones 1+ H Urine Blood Negative Urine Nitrite Negative Urine Bilirubin Negative Urine Urobilinogen Negative Ur Leukocyte Esterase Negative Urine WBC (Auto) 0-5 Urine RBC (Auto) 0-2 U Hyaline Cast (Auto) 0-2 U Epithel Cells (Auto) 0-2 Urine Bacteria (Auto) None Seen Adenovirus (PCR) Not Detected B. pertussis DNA (PCR) Not Detected B.parapertussis DNA PCR Not Detected C. pneumoniae DNA (PCR) Not Detected Coronavirus OC43 (PCR) Not Detected Coronavirus HKU1 (PCR) Not Detected Coronavirus 229E (PCR) Not Detected SARS-CoV-2 (PCR) Not Detected Coronavirus NL63 (PCR) Not Detected Human Metapneumovir PCR Not Detected Influenza A (H3) PCR DETECTED A Influenza Type B (PCR) Not Detected M. pneumoniae (PCR) Not Detected Parainfluenza 1 (PCR) Not Detected Parainfluenza 2 (PCR) Not Detected Parainfluenza 3 (PCR) Not Detected Parainfluenza 4 (PCR) Not Detected RSV (PCR) Not Detected Entero/Rhino (PCR) Not Detected 11/05/24 11/05/24 11/05/24 16:27 16:32 20:53 WBC RBC Hgb Hct MCV MCH MCHC RDW Std Deviation RDW Coeff of Leopoldo Plt Count MPV Immature Gran % (Auto) Neut % (Auto) Lymph % (Auto) [place] % (Auto) Eos % (Auto) Baso % (Auto) Neut # (Auto) Lymph # (Auto) [place] # (Auto) Eos # (Auto) Baso # (Auto) Immature Gran # (Auto) PT INR APTT PTT Ratio VBG pH VBG pCO2 VBG pO2 VBG HCO3 VBG O2 Saturation VBG Base Excess Sodium Potassium Chloride Carbon Dioxide Anion Gap BUN Creatinine Est Cr Clr Drug Dosing eGFR BUN/Creatinine Ratio Glucose POC Glucose 245 H 329 H* Estimat Average Glucose Hemoglobin A1c Lactate Calcium Magnesium Total Bilirubin AST ALT Alkaline Phosphatase Troponin I High Sens 5.4 Total Protein Albumin Globulin Albumin/Globulin Ratio Triglycerides Cholesterol LDL Cholesterol, Calc VLDL Cholesterol, Calc HDL Cholesterol Cholesterol/HDL Ratio Lipase Procalcitonin TSH Free T4 Urine Color Urine Appearance Urine pH Ur Specific [place] Urine Protein Urine Glucose (UA) Urine Ketones Urine Blood Urine Nitrite Urine Bilirubin Urine Urobilinogen Ur Leukocyte Esterase Urine WBC (Auto) Urine RBC (Auto) U Hyaline Cast (Auto) U Epithel Cells (Auto) Urine Bacteria (Auto) Adenovirus (PCR) B. pertussis DNA (PCR) B.parapertussis DNA PCR C. pneumoniae DNA (PCR) Coronavirus OC43 (PCR) Coronavirus HKU1 (PCR) Coronavirus 229E (PCR) SARS-CoV-2 (PCR) Coronavirus NL63 (PCR) Human Metapneumovir PCR Influenza A (H3) PCR Influenza Type B (PCR) M. pneumoniae (PCR) Parainfluenza 1 (PCR) Parainfluenza 2 (PCR) Parainfluenza 3 (PCR) Parainfluenza 4 (PCR) RSV (PCR) Entero/Rhino (PCR) 11/05/24 11/06/24 11/06/24 23:25 03:18 06:41 WBC 5.23 RBC 3.92 L Hgb 11.3 L Hct 33.6 L MCV 85.7 MCH 28.8 MCHC 33.6 RDW Std Deviation 39.8 RDW Coeff of Leopoldo 12.7 Plt Count 107 L MPV 9.1 L Immature Gran % (Auto) 0.2 Neut % (Auto) 71.0 Lymph % (Auto) 18.5 [place] % (Auto) 10.1 Eos % (Auto) 0.0 Baso % (Auto) 0.2 Neut # (Auto) 3.71 Lymph # (Auto) 0.97 L [place] # (Auto) 0.53 Eos # (Auto) 0.00 Baso # (Auto) 0.01 Immature Gran # (Auto) 0.01 PT INR APTT PTT Ratio VBG pH VBG pCO2 VBG pO2 VBG HCO3 VBG O2 Saturation VBG Base Excess Sodium 136 Potassium 4.1 Chloride 103 Carbon Dioxide 30 Anion Gap 3 BUN 12 Creatinine 0.39 L Est Cr Clr Drug Dosing 180.1 eGFR 119.74 BUN/Creatinine Ratio 30.8 H Glucose 282 H POC Glucose 322 H* 270 H Estimat Average Glucose 180 Hemoglobin A1c 7.9 H Lactate Calcium 9.8 Magnesium 2.1 Total Bilirubin 0.3 AST 39 ALT 21 Alkaline Phosphatase 53 Troponin I High Sens Total Protein 6.3 Albumin 3.5 Globulin 2.8 Albumin/Globulin Ratio 1.3 Triglycerides 89 Cholesterol 165 LDL Cholesterol, Calc 112 VLDL Cholesterol, Calc 18 HDL Cholesterol 35 Cholesterol/HDL Ratio 4.7 Lipase Procalcitonin TSH 0.243 L Free T4 0.76 Urine Color Urine Appearance Urine pH Ur Specific [place] Urine Protein Urine Glucose (UA) Urine Ketones Urine Blood Urine Nitrite Urine Bilirubin Urine Urobilinogen Ur Leukocyte Esterase Urine WBC (Auto) Urine RBC (Auto) U Hyaline Cast (Auto) U Epithel Cells (Auto) Urine Bacteria (Auto) Adenovirus (PCR) B. pertussis DNA (PCR) B.parapertussis DNA PCR C. pneumoniae DNA (PCR) Coronavirus OC43 (PCR) Coronavirus HKU1 (PCR) Coronavirus 229E (PCR) SARS-CoV-2 (PCR) Coronavirus NL63 (PCR) Human Metapneumovir PCR Influenza A (H3) PCR Influenza Type B (PCR) M. pneumoniae (PCR) Parainfluenza 1 (PCR) Parainfluenza 2 (PCR) Parainfluenza 3 (PCR) Parainfluenza 4 (PCR) RSV (PCR) Entero/Rhino (PCR) Pending Results Patient Have Any Pending Studies at Discharge: Yes (blood cultures ) Discharge Instructions Given to Patient (Per Discharging Provider) Chyna, You were hospitalized after having increasing shortness of breath - this was found to be from the Influenza A virus. You were treated with IV steroids and y our breathing has improved. You should continue on the steroid pack that your PCP sent in for you. I have sent in tamiflu - first dose will be tonight, and I have also sent in Tessalon Pearls that can be used for cough. You can also pickle solution maker mucinex over the counter that can help to thin the mucus to help with your cough. When you get home please continue to use your flutter valve and incentive spirometer. I may take up to two weeks for you to continue to feel better. Please follow up with your PCP/site identification specialist next week. Your hgb A1c was elevated at 7.9 - continue to work with your PCP to get better control of your sugars. You have blood cultures pending at the time of discharge, they will take 5 days to get final results. If they turn positive you will be notified, you can also check in with your PCP or the [facility] portal. However, given your symptoms and viral illness I do not expect they will be positive. If you start feeling worse during your drive, please seek care at the nearest ER. Thank you for allowing us to participate in your care! Mariely Saldana PA-C Total Time Total Time Spent Total Time Spent (In Minutes): Time spent day of discharge 35 minutes including direct patient care, medication reconciliation, documentation, review of labs and images, and coordination of care. Coding Level of Care Code 75821 INP/OBS DISCH >30 MIN Diagnoses Acute on chronic respiratory failure J96.21 Respiratory failure complication: hypoxia Influenza A J10.1 COPD (chronic obstructive pulmonary disease) J44.9 Diabetes mellitus, type II E11.9
[2024-11-06] MEDS: MONTELUKAST SODIUM 10 MG TABLET PO SCH (09:58)
[2024-11-06] MEDS: LOSARTAN POTASSIUM 25 MG TAB PO SCH (09:58)
[2024-11-06] MEDS: PANTOprazole 40 MG TAB PO SCH (09:58)
[2024-11-06] MEDS: LANTUS PER UNIT CHARGE SQ SCH (10:07)
[2024-11-06] MEDS: ASPIRIN 81 MG ECTAB PO SCH (10:58)
[2024-11-06] MEDS ORDERED: levoFLOXacin/D5W 750 MG/150 ML BAG IV SCH (16:00)
--- NOTE | 2024-11-07 15:37 | Electrocardiogram Report ---
Test Reason : Blood Pressure : */* mmHG Vent. Rate : 113 BPM Atrial Rate : 113 BPM P-R Int : 168 ms QRS Dur : 92 ms QT Int : 324 ms P-R-T Axes : 62 9 73 degrees QTcB Int : 444 ms Sinus tachycardia Otherwise normal ECG When compared with ECG of 20-Mar-2019 14:59, No significant change was found Confirmed by Carlos Ricci [id number]) on 11/07/2024 3:37:22 PM Referred By: REFERRED SELF Confirmed By: Carlos Ricci
== END 2024-11-06 12:41 | disposition home or self-care (01) | DRG 193 ==
LOC: ED 11:12 → EDINP 16:11 → SUATTDRO 16:11 → 2S 16:58